=== PATIENT | female | born 1985 | race Caucasian/White ===

== ENCOUNTER → 2017-10-25 16:39 | Outpatient (CLI) | payer OTHER, SELFPAY ==
[2017-10-25 19:36] LABS: Chlamydia Trachomatis by PCR Negative (Negative); Neisserai gonorrhoeae by PCR Negative (Negative); Probe Check PASS; Sample Adequacy Control PASS; Specimen Processing Control PASS
--- NOTE | 2017-10-31 12:15 | VUL_PTH ---
PATIENT: HAYDER LIMA LOC: [facility] U#:[id number] AGE/SX: 39/F ROOM: RE10/25/[address]: Dr. Norbert Meraz MD : 1985 BED: DIS: SPEC #: [id number] RECD: 11/02/17 12:39 STATUS: HARDIK EDGARDO #: [id number] HAILEE: 10/31/17 12:[address]: Norbert Meraz DEPT: SURGICAL PATHOLOGY RECD BY: Xavi Argueta Tissues: Vulva, NOS Procedures: Surgery Specimen Level IV HEADER OPERATION: Skin tag excision PRE-OP DIAGNOSIS: Skin tags TISSUE SUBMITTED: Vulvar skin tags MICROSCOPIC DIAGNOSIS Vulvar skin tags: Squamous papilloma x2. SJ:efren 11/02/17 MICROSCOPIC DESCRIPTION Slides are reviewed. GROSS DESCRIPTION Received in fixative is one container labeled with the patient's name and designated vulvar skin tags. The specimen consists of two pieces of juares-white skin measuring 1 x 0.5 x 0.3 cm and 0.7 x 0.5 x 0.3 cm. Both pieces are dissected. The entire specimen is submitted in one cassette. / SJ:efren 11/01/17 TC:1 CPT: 74208
== END ==
PROVIDERS: Visit Provider Obstetrics & Gynecology
DX: Z12.4 Encounter for screening for malignant neoplasm of cervix (principal); Z11.3 Encounter for screening for infections with a predominantly sexual mode of transmission
CPT/HCPCS: 87491; 87591; 87624; 88175; 88305; G0145

== ENCOUNTER → 2017-10-31 12:15 | Outpatient (CLI) | payer OTHER, SELFPAY ==
--- NOTE | 2017-10-31 12:15 | DT_ITS ---
This patient was seen during an EMR downtime October 29, 2017 - November 05, 2017. This patient may have a combination of paper and electronic documentation or all paper documentation. All documentation is viewable within the e-chart portion of [facility] for each patient visit.
== END ==
PROVIDERS: Family Provider Family Medicine Geriatric Medicine; PCP Family Medicine Geriatric Medicine; Visit Provider Obstetrics & Gynecology
DX: N90.89 Other specified noninflammatory disorders of vulva and perineum (principal)

== ENCOUNTER → 2018-10-03 16:41 | Outpatient (CLI) | payer SELFPAY ==
[2018-05-13 08:52] VITALS: BMI 36.8
== END ==
PROVIDERS: Family Provider Family Medicine Geriatric Medicine; PCP Family Medicine Geriatric Medicine; Visit Provider Family Medicine Geriatric Medicine
DX: N39.0 Urinary tract infection, site not specified (principal)
CPT/HCPCS: 87086; 87088

== ENCOUNTER → 2018-10-04 11:50 | Outpatient (CLI) | payer OTHER, SELFPAY ==
[2018-05-13 08:52] VITALS: BMI 36.8
--- NOTE | 2018-10-04 11:55 | US_ITS ---
STUDY: ABDOMINAL ULTRASOUND - RIGHT UPPER QUADRANT REASON FOR VISIT: Female, 32 years old. Right upper quadrant pain. TECHNIQUE: Ultrasound evaluation of the right upper quadrant was performed with real-time and static monahan-scale imaging. TECHNICAL QUALITY: Adequate. Examination limited by bowel gas. COMPARISON: None. FINDINGS: Liver: The liver measures 15.2 cm. There is normal echogenicity of the liver. The bile ducts are within normal limits. There is hepatic color flow. The direction of portal flow is hepatopetal. There is no demonstrated mass lesion. Gallbladder: Normal distended gallbladder. The gallbladder wall measures 3 mm. There is a negative sonographic Javier's sign. There is no pericholecystic fluid. There are no gallstones. Common Bile Duct (C.B.D.): The common bile duct measures 4 mm. Pancreas: Normal size of the visualized head, neck, and body of the pancreas. The tail the pancreas is not well seen. There is normal echogenicity of the pancreas. There is no demonstrated pancreatic mass or cyst. Right Kidney: Normal size of the right kidney. The right kidney measures 11.1 x 5.4 x 4.3 cm. Normal renal cortex. The right cortex measures 1.6 cm. There is no demonstrated renal mass or cyst. There is no right hydronephrosis. US/Abdomen Limited IMPRESSION: Normal right upper quadrant ultrasound examination. Electronically Signed: Mohsen Young MD at 12:42 EDT , Service support ,
== END ==
PROVIDERS: Family Provider Family Medicine Geriatric Medicine; PCP Family Medicine Geriatric Medicine; Referring Provider Family Medicine Geriatric Medicine; Visit Provider Family Medicine Geriatric Medicine
DX: R10.9 Unspecified abdominal pain (principal)
CPT/HCPCS: 76705

== ENCOUNTER → 2019-08-19 09:56 | Outpatient (CLI) | payer OTHER, SELFPAY ==
[2018-05-13 08:52] VITALS: BMI 36.8
[2019-08-19 16:26] LABS: Absolute Lymphocyte Count 2.55 X10^3/uL (0.83-4.51); Absolute Neutrophil Count 4.6 X10^3/uL (2.0-7.7); Basophil# 0.05 X10^3/uL; Basophil% 0.6 % (0-1); Eosinophil# 0.11 X10^3/uL; Eosinophils% 1.4 % (0-5); Hematocrit 38.6 % (37-47); Hemoglobin 12.4 g/dL (12.0-15.0); Lymphocyte # 2.55 X10^3/ul (4.0); Lymphocyte % 32.3 % (19-41); Mean Corp Hgb Conc 32.1 g/dL (32-36); Mean Corpuscular Hgb 28.1 pg (27.0-32.0); Mean Corpuscular Volume 87.5 fL (81-99); Mean Platelet Vol. 10.6 fl (6.2-12.0); Monocyte# 0.52 X10^3/uL; Monocyte% 6.6 % (0-10); NRBC Flagged by Analyzer 0 % (0-5); Neutrophil # 4.56 X10^3/uL (2.7-7.7); Neutrophil % 57.7 % (47-70); Platelet Count 210 K/mm3 (150-450); RBC Distribution Width CV 13.4 % (11.6-14.6); RBC Distribution Width SD 43.4 fl (35.1-43.9); Red Blood Count 4.41 M/mm3 (4.2-5.4); White Blood Count 7.9 K/mm3 (4.4-11.0)
[2019-08-19 16:42] LABS: Anion Gap 5 (5-15); BUN 13 mg/dL (7-18); BUN/Creat Ratio 18.3 RATIO (10-20); Chloride 114 mmol/L (98-107); Creatinine, Serum 0.71 mg/dL (0.55-1.02); EST Glomerular Filtration Rate 100 mL/min (>60); Est Glom Filt Rate - Afr Amer 121 mL/min (>60); Glucose 105 mg/dL (74-106); Potassium 4.1 mmol/L (3.5-5.1); Sodium Level 142 mmol/L (136-145)
== END ==
PROVIDERS: PCP Family Medicine Geriatric Medicine; Visit Provider Family Medicine Geriatric Medicine
DX: R51 Headache (principal)
CPT/HCPCS: 36415; 80048; 85025

== ENCOUNTER → 2019-08-29 11:26 | Outpatient (CLI) | payer OTHER, SELFPAY ==
[2018-05-13 08:52] VITALS: BMI 36.8
[2019-08-29 12:48] LABS: Anion Gap 4 (5-15); BUN 23 mg/dL (7-18); Calcium,Total 8.6 mg/dL (8.5-10.1); Chloride 108 mmol/L (98-107); Creatinine, Serum 0.79 mg/dL (0.55-1.02); EST Glomerular Filtration Rate 88 mL/min (>60); Est Glom Filt Rate - Afr Amer 106 mL/min (>60); Glucose 95 mg/dL (74-106); Potassium 4.7 mmol/L (3.5-5.1); Sodium Level 137 mmol/L (136-145)
== END ==
PROVIDERS: PCP Family Medicine Geriatric Medicine; Visit Provider Family Medicine Geriatric Medicine
DX: E83.51 Hypocalcemia (principal)
CPT/HCPCS: 36415; 80048

== ENCOUNTER → 2019-09-12 | Outpatient (CLI) | payer OTHER, SELFPAY ==
[2018-05-13 08:52] VITALS: BMI 36.8
--- NOTE | 2019-09-11 | EMB_PTH ---
PATIENT: HAYDER LIMA LOC: [facility] U#:[id number] AGE/SX: 33/F ROOM: RE09/12/[address]: Dr. Norbert Meraz MD : 1985 BED: DIS: 09/12/2019 SPEC #: [id number] RECD: 09/12/19 10:47 STATUS: HARDIK EDGARDO #: [id number] HAILEE: 09/11/19 00:[address]: Norbert Meraz DEPT: SURGICAL PATHOLOGY RECD BY: Mahesh Torres Tissues: Endometrium, NOS Procedures: Surgery Specimen Level IV HEADER OPERATION: Endometrial biopsy PRE-OP DIAGNOSIS: Irregular bleeding, menorrhagia TISSUE SUBMITTED: Endometrial biopsy MICROSCOPIC DIAGNOSIS Endometrial biopsy: Early secretory endometrium. ALBERT:efren 09/15/19 MICROSCOPIC DESCRIPTION Slides are reviewed. GROSS DESCRIPTION Received in fixative is one container labeled with the patient's name and designated endometrial biopsy. The specimen consists of multiple fragments of pink, hemorrhagic soft tissue that in aggregate measure 3 x 2.5 x 0.2 cm. The entire specimen is submitted in one cassette. / SJ:rg 09/12/19 TC:4 CPT: 33167
[2019-09-12 12:39] LABS: Thyroid Stim Hormone (TSH) 1.43 uIU/mL (0.358-3.74)
== END | disposition home or self-care (01) ==
PROVIDERS: Referring Provider Obstetrics & Gynecology; Visit Provider Obstetrics & Gynecology
DX: N92.6 Irregular menstruation, unspecified (principal); N92.0 Excessive and frequent menstruation with regular cycle
CPT/HCPCS: 36415; 84146; 84443; 88305

== ENCOUNTER 2019-11-20 05:46 | Day surgery (SDC) | payer OTHER, SELFPAY ==
[2018-05-13 08:52] VITALS: BMI 36.8
[2019-11-15 07:59] LABS: Hematocrit 42.8 % (37-47); Mean Corp Hgb Conc 32.7 g/dL (32-36); Mean Corpuscular Hgb 28.6 pg (27.0-32.0); Mean Corpuscular Volume 87.5 fL (81-99); Mean Platelet Vol. 10.2 fl (6.2-12.0); Platelet Count 267 K/mm3 (150-450); RBC Distribution Width CV 13.6 % (11.6-14.6); RBC Distribution Width SD 43.5 fl (35.1-43.9); Red Blood Count 4.89 M/mm3 (4.2-5.4); White Blood Count 8.5 K/mm3 (4.4-11.0)
--- NOTE | 2019-11-19 22:09 | HP.PCM_ITS ---
History and Physical Date of Admission: 11/20/19 Surgical History and Physical Annelise Bourgeois, a 34 year old female 2 0 0 0 2, presents for HTA, Hysteroscopy and D and C on November 20, 2019 at 7:30. -- Menorrhagia -- Bleeding Heavy with clots which began . Annelise claims it started gradually and has been present for several years. Additional comments are: EMBx was benign; TSH and prolactin OK; u/s without submucous fibroids today. MEDICATIONS HISTORY: Current medications prescribed by our practice are: 1. Ditropan XL 10 mg tablet,extended release, One pill by mouth once a day 2. Prometrium 200 mg capsule, One pill by mouth once a day at hs for 10 days monthly ALLERGIES: NKA Infections - chix pox in childhood, shingles inb adulthood, pos. chlamydia 07/31 Illnesses - IBS Accidents - None Hospitalizations - see surgery Review of Systems: GENERAL - Denies fever, or chills SKIN - Denies skin changes EYES - Denies visual changes EARS - Denies difficulty hearing NOSE - Denies nasal congestion or bleeding MOUTH - Denies sore throat or difficulty swallowing NECK - Denies pain or swelling RESPIRATORY - Denies shortness of breath or wheezing CARDIOVASCULAR - Denies palpitations or chest pain GASTROINTESTINAL - Denies nausea, vomiting, diarrhea, constipation GENITOURINARY - Denies dysuria, frequency of urination, incontinence of urine MUSCULOSKELETAL - Denies joint or muscle pain NEUROLOGICAL - Denies localized numbness or weakness PSYCHIATRIC - Denies depression or anxiety ENDOCRINE - Denies heat or cold intolerance, weight loss or gain HEMATO-IMMUNOLOGIC - Denies excesive bleeding with cuts SOCIAL HISTORY: Alcohol Use - RARELY Smoking - 4 cigarettes daily (ATQ) Diet - no particular diet, caffeine > 2 drinks per day and needs improvement Lifestyle - moderate stress lifestyle and single Exercise - active work Seat Belt Use - always Employer - 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 Hours Worked - 40 hours per week Children Name(s) - Norbert Lombardo Control - Essure Tubal FAMILY HISTORY: Family history of DM II, Family History, Heart Disease and Hypertension. Mother: heart murmur and Hypertension. Father: DM II, Heart Disease and Hypertension. Maternal Grandmother: septic from gut infection. Maternal Grandfather: and Lung cancer. Paternal Grandmother: and Heart Disease. Paternal Grandfather: Colon Cancer. MENSTRUAL HISTORY: LMP Known?- DefiniteAmount/Duration - 4-5 days, Regularity - Irregular, Frequency - every 2 wks days, LMP - 11/03/19, Age Onset Menarche - 9 PAST PREGNANCIES: Total Pregnancies - 2; Full Term Pregnancies - 2; Premature - 0; Abortions, Induced - 0; Abortions, Spontaneous - 0; Ectopics - 0; Multiple Births - 0; Living Children - 2 SURGICAL HISTORY: 1. 10/30/2013 [facility] ; Norbert Meraz M.D. 2. wisdom teeth 3. Tonsils, 1999 PHYSICAL EXAM BP- 138/82 Sitting, Right arm, large cuff Weight- 217.0 lbs Height- 62 inch BMI:39.77 CONSTITUTIONAL - NAD, well nourished, and well developed SKIN - No rash, lesions, or ulcers HEENT - Normocephalic, PERRLA, EOMI NECK - No nodes, no nuchal rigidity and thyroid normal size and texture LYMPH NODES - Palpation of lymph nodes in neck and groins within normal limits LUNGS - CTA x2 without wheezes, crackles or rales CARDIAC - Regular rate and rhythm without rubs, murmurs, or gallops BREAST - No dominant masses, no tenderness, no axillary adenopathy, no nipple discharge, no skin changes ABDOMEN - Without hepatosplenomegaly, distention, masses, rebound, or guarding; normal bowel sounds; no hernias EXTREMITIES - No edema or calf tenderness NEUROLOGICAL - Cranial nerves II-XII grossly intact PSYCHIATRIC - A and O to time, place, person, mood and affect External Genital Vagina - non-tender without lesions Urethra/Urethral Meatus - non-tender Bladder - non-tender Vagina - vaginal smith are pink and moist without loss of rugae and no evidence of atropy and blood in vagina Cervix - without cervical motion tenderness and has normal size and features without evident lesions and high in the vagina Uterus - multiparous size 6 cm & wt 75-125 g Adnexa - clear without masses or tenderness ASSESSMENT/PLAN: 1. Premenopausal Menorrhagia EMBx OK. TSH and prolactin normal. Pelvic u/s shows that HTA will likely be of benefit as no submucous fibroids or polyps. Plan HTA, D and C and H/S. Discussed RBAs and all questions answered. Procedure Criteria Procedure Type: Elective COVID Risk Discussion: The surgeon/proceduralist and patient have discussed in detail the risk of exposure to and/or potential harm posed by the COVID-19 virus with having a jose lala/procedure at this time versus the risk of delaying the surgery/procedure. It is not possible to know either the risk of delaying the surgery or procedure or chance of getting an infection with perfect accuracy, but a joint decision was made between the patient and the surgeon/proceduralist to proceed at this time with the scheduled surgery/procedure as indicated on the consent form.
[2019-11-20] VITALS (14 sets, daily range): BP systolic 107–143; BP diastolic 67–102; PULSE 56–94; RESP 12–18; TEMP 36.1–37.3; O2SAT 95–100; BMI 39.5
[2019-11-20 06:31] LABS: Internal QC Validated? YES +Cl - CLEAR BKGD; Pregnancy, Urine Negative Negative
[2019-11-20] MEDS: Lactated Ringers 1,000 ML 100 ML IV (06:41)
--- NOTE | 2019-11-20 07:27 | PCM.OPRPT ---
Report of Operation Date of Procedure: 11/20/19 Pre-Operative Diagnosis: Menorrhagia Post-Operative Diagnosis: Menorrhagia Surgery/Procedure Performed:: Diagnostic Hysteroscopy, Dilation and Curettage, Hydrothermal Ablation Description of Surgical Findings:: 8 cm endometrial cavity without polyps or fibroids. Cervix which prolapsed to about 3 to 4 cm from the introitus which would make vaginal hysterectomy likely possible and difficult difficult but robotic assisted vaginal hysterectomy feasible and preferred if hysterectomy were necessary. Type of Anesthesia:: General - LMA Anesthesiologist: Jose Guadalupe Sheppard Specimen's removed: Endometrial curettings Estimated Blood Loss (mL): Minimal Fluids Replaced: Crystalloid Description of Procedure: Surgeon: Norbert Meraz MD, FACOG Indication: This is a 34 year old patient who has been having problems with extremely heavy menses. Conservative measures have not been helpful. Endometrial sampling was benign and pelvic ultrasound showed that ablation may be helpful. Pt has been counseled regarding the risks, benefits and alternatives of this procedure and all questions answered. She understands that only about half of patients will have amenorrhea after this procedure. Procedure: Patient taken to the operating room where after induction of general anesthesia the patient was prepped and draped in the usual sterile fashion. Bladder was drained of urine with a catheter. Anterior cervix grasped and cervix was dilated to about 17 Nepali size. Hysteroscopic hydrothermal ablation (HTA) unit was place in the cervix and the above findings were noted. HTA unit was removed and the uterus was gently curetted removing all contents. An HTA ablation cycle was then carried out at about 90 degrees Centigrade for 10 minutes with virtually no fluid loss during the procedure. After an appropriate cool down the HTA unit was removed with minimal bleeding noted. The patient tolerated the procedure well and was taken to the recovery room in satisfactory condition. Sponge, instruments and needle counts were all correct. There were no apparent complications of the surgery. Cefotan 2 gms IV was given prior to the procedure. Grafts/Implants Used: None - Complications None - Admit VTE Documentation VTE Present on Admission: Yes VTE Mechan Device Prophylaxis: SCD's
--- NOTE | 2019-11-20 07:30 | EMB_PTH ---
PATIENT: HAYDER LIMA LOC: [facility] U#:[id number] AGE/SX: 34/F ROOM: RE11/20/[address]: Dr. Norbert Meraz MD : 1985 BED: DIS: 11/20/2019 SPEC #: [id number] RECD: 11/20/19 08:59 STATUS: HARDIK EDGARDO #: [id number] HAILEE: 11/20/19 07:[address]: Norbert Meraz DEPT: SURGICAL PATHOLOGY RECD BY: Marcin Del Valle ENTERED: 11/20/19 09:17 SP TYPE: ENDOM BX/C LUIS CARLOS DR: No Primary Care Phys Tissues: Endometrium, NOS Procedures: Surgery Specimen Level IV HEADER OPERATION: Hysteroscopy, D & C hydroablation PRE-OP DIAGNOSIS: Menorrhagia TISSUE SUBMITTED: Endometrial curettings MICROSCOPIC DIAGNOSIS Endometrial curettings: Secretory endometrium. A few fragments of myometrium. A few fragments of benign ectocervical epithelium. SJ:efren 11/21/19 COMMENT Please make reference to previous specimen ([id number]) endometrial biopsy with diagnosis of early secretory endometrium. MICROSCOPIC DESCRIPTION Slides are reviewed. GROSS DESCRIPTION Received in fixative is one container labeled with the patient's name and designated endometrial curettings. The specimen consists of multiple fragments of hemorrhagic soft tissue that in aggregate measure 5 x 3 x 0.6 cm. The entire specimen is submitted in four cassettes. / ALBERT:efren 11/20/19 TC:4 CPT: 03713
--- NOTE | 2019-11-20 07:30 | DCINST_ITS ---
Discharge Diet: No Restrictions Discharge Activity: Return to Normal Activity, May Shower, May Take a Tub Bath May resume sexual activity in: 4 weeks Call your doctor if you observe: Fever of 101 or Higher, Inability to urinate, Inability to have a bowel movement Allergies/Adverse Reactions: Allergies No Known Allergies Allergy (Verified 11/14/19 08:01) Medications to take at Discharge Oxycodone [Oxyir] 5 mg PO Q6H PRN PRN 7 Days #5 tablet 11/20/19 The following prescriptions were given: Oxycodone [Oxyir] 5 mg PO Q6H PRN PRN 7 Days #5 tablet PRN Reason: Pain Score 6-10/10 Transmission Status: Sent to [facility] Primary Care Physician: Care Physician,No Primary [Primary Care Provider] - Test Results: Test results from this visit will be discussed in further detail at your follow- up appointment, if applicable. Please Follow Up With: Norbert Meraz MD When: 3-4 weeks
[2019-11-20] MEDS: Oxytocin 10 UNITS/ML Vial (08:06)
[2019-11-20] MEDS: oxyCODONE 5 MG Tablet PO (10:18)
[2019-11-20] MEDS: Ketorolac 30 MG/ML Syringe IV (11:56)
== END 2019-11-20 12:43 | disposition home or self-care (01) ==
LOC: SDC 05:47 → AC 05:47
PROVIDERS: Anesthesiology; Referring Provider Obstetrics & Gynecology; Visit Provider Obstetrics & Gynecology
PROC: 0U5B8ZZ Destruction of Endometrium, Via Natural or Artificial Opening Endoscopic (ICD-10-PCS; CPT 58563; principal; 2019-11-20 07:15)
DX: N92.4 Excessive bleeding in the premenopausal period (principal); F17.210 Nicotine dependence, cigarettes, uncomplicated; Z11.59 Encounter for screening for other viral diseases
CPT/HCPCS: 00952; 58563; 36415; 81025; 84443; 85027; 86850; 86900; 86901; 87635; 88305; G2023; J7120; J2405; U0003

== ENCOUNTER → 2020-03-05 17:30 | Outpatient (CLI) | payer OTHER, SELFPAY ==
[2019-11-20 06:30] VITALS: BMI 39.5
== END ==
PROVIDERS: PCP Family Medicine Geriatric Medicine; Referring Provider Family Medicine Geriatric Medicine; Visit Provider Family Medicine Geriatric Medicine
DX: R68.83 Chills (without fever) (principal)
CPT/HCPCS: 87633; 87635; C9803; U0003

== ENCOUNTER → 2020-05-12 07:06 | Outpatient (CLI) | payer OTHER, SELFPAY ==
[2020-04-16 08:23] VITALS: BMI 39.5
== END ==
PROVIDERS: PCP Family Medicine Geriatric Medicine; Referring Provider Chiropractor; Visit Provider Chiropractor
DX: M99.03 Segmental and somatic dysfunction of lumbar region (principal); M99.05 Segmental and somatic dysfunction of pelvic region
CPT/HCPCS: 72110

== ENCOUNTER 2020-06-17 08:00 | Outpatient (RCR) | payer OTHER, SELFPAY | END 2020-06-17 23:59 | LOC: IMMUN 08:00 | PROVIDERS: PCP Family Medicine Geriatric Medicine; Visit Provider Family Medicine | DX: Z23 Encounter for immunization (principal) | CPT/HCPCS: 0011A; 0012A; 91301 ==

== ENCOUNTER → 2020-08-13 12:07 | Outpatient (CLI) | payer OTHER, SELFPAY ==
[2020-08-13 12:47] LABS: Absolute Lymphocyte Count 2.35 X10^3/uL (0.83-4.51); Absolute Neutrophil Count 6.1 X10^3/uL (2.0-7.7); Basophil# 0.06 X10^3/uL; Basophil% 0.6 % (0-1); Eosinophil# 0.12 X10^3/uL; Eosinophils% 1.3 % (0-5); Hematocrit 44.9 % (37-47); Hemoglobin 14.4 g/dL (12.0-15.0); Lymphocyte # 2.35 X10^3/ul (4.0); Lymphocyte % 25.2 % (19-41); Mean Corp Hgb Conc 32.1 g/dL (32-36); Mean Corpuscular Volume 87.2 fL (81-99); Mean Platelet Vol. 10.7 fl (6.2-12.0); Monocyte# 0.61 X10^3/uL; Monocyte% 6.5 % (0-10); NRBC Flagged by Analyzer 0 % (0-5); Neutrophil # 6.06 X10^3/uL (2.7-7.7); Platelet Count 261 K/mm3 (150-450); RBC Distribution Width CV 13.5 % (11.6-14.6); RBC Distribution Width SD 42.7 fl (35.1-43.9); Red Blood Count 5.15 M/mm3 (4.2-5.4); White Blood Count 9.3 K/mm3 (4.4-11.0)
[2020-08-13 13:17] LABS: Anion Gap 3 (5-15); BUN 13 mg/dL (7-18); BUN/Creat Ratio 15.2 RATIO (10-20); Chloride 106 mmol/L (98-107); Creatinine, Serum 0.85 mg/dL (0.55-1.02); EST Glomerular Filtration Rate 80 mL/min (>60); Est Glom Filt Rate - Afr Amer 97 mL/min (>60); Glucose 99 mg/dL (74-106); Potassium 4.2 mmol/L (3.5-5.1); Sodium Level 136 mmol/L (136-145); Thyroid Stim Hormone (TSH) 2.01 uIU/mL (0.358-3.74)
== END ==
PROVIDERS: PCP Family Medicine Geriatric Medicine; Visit Provider Family Medicine Geriatric Medicine
DX: R53.83 Other fatigue (principal)
CPT/HCPCS: 36415; 80048; 84443; 85025

== ENCOUNTER → 2020-10-20 | Outpatient (CLI) | payer OTHER, SELFPAY | END | disposition home or self-care (01) | LOC: POLAB3 10:38 → LABSPEC 10:41 | PROVIDERS: PCP Family Medicine Geriatric Medicine; Visit Provider Family Medicine Geriatric Medicine | DX: N39.0 Urinary tract infection, site not specified (principal) | CPT/HCPCS: 87086; 87088 ==

== ENCOUNTER → 2021-01-24 09:01 | Outpatient (CLI) | payer OTHER, SELFPAY ==
[2021-01-24 14:14] LABS: Probe Check PASS; Specimen Processing Control PASS
== END ==
LOC: PSN 09:02
PROVIDERS: PCP Family Medicine Geriatric Medicine; Referring Provider Family Medicine Geriatric Medicine; Visit Provider Family Medicine Geriatric Medicine
DX: U07.1 COVID-19 (principal)
CPT/HCPCS: 87633; 87635; C9803; U0005; U0003

== ENCOUNTER 2021-01-26 14:22 | Outpatient (CLI) | payer OTHER, SELFPAY ==
[2021-01-26] MEDS: 0.9% Saline Lock 10 ML Syringe IV (14:43)
[2021-01-26 14:45] VITALS: BP 141/88; PULSE 103; RESP 16; TEMP 37.1; O2SAT 98; BMI 40.9
[2021-01-26 16:00] VITALS: BP 124/81; PULSE 98; RESP 16; TEMP 37.2; O2SAT 99
[2021-01-26 17:00] VITALS: BP 139/85; PULSE 101; RESP 16; TEMP 36.8; O2SAT 100
== END 2021-01-26 17:02 | disposition home or self-care (01) ==
LOC: ICUOUT 14:23 → MS2 14:24
PROVIDERS: PCP Family Medicine Geriatric Medicine; Referring Provider Nurse Practitioner Acute Care; Visit Provider Nurse Practitioner Acute Care
DX: Z23 Encounter for immunization (principal); U07.1 COVID-19
CPT/HCPCS: J7050; M0243; A4216; Q0244

== ENCOUNTER → 2021-04-25 12:16 | Outpatient (CLI) | payer OTHER, SELFPAY ==
--- NOTE | 2021-04-25 | LES_PTH ---
PATIENT: HAYDER LIMA LOC: [facility] U#:[id number] AGE/SX: 39/F ROOM: RE04/25/[address]: Dr. Salomón Perkins MD : 1985 BED: DIS: SPEC #: [id number] RECD: 04/25/21 13:07 STATUS: HARDIK EDGARDO #: [id number] HAILEE: 04/25/21 00:[address]: Salomón Perkins Chi DEPT: SURGICAL PATHOLOGY RECD BY: Mahesh Torres Tissues: Skin of forearm, NOS Procedures: Special Stain Group I Surgery Specimen Level IV GMS Stain (control) HEADER OPERATION: Biopsy right forearm PRE-OP DIAGNOSIS: L98.9 TISSUE SUBMITTED: Right forearm biopsy MICROSCOPIC DIAGNOSIS Skin, right forearm, biopsy: Lichenoid and interface dermatitis. See comment. ALBERT:efren 05/03/2021 COMMENT The specimen is sent to [facility] for expert opinion, reviewed by Dr. Rojelio Reza and the above diagnosis is rendered. Dr. Cesar Reza also commented that ?differential diagnosis includes lichen planus-like keratosis, lichen planus lichenoid drug reaction and less likely, collagen vascular disorders. Clinicopathological correlation should be consider.? The complete report is viewable in the patient's EMR. Special stain for fungi is negative for organisms; matched control is appropriate. Case has been reviewed in consultation with Dr. Ramírez who concurs with the above diagnosis. IDC:AM MICROSCOPIC DESCRIPTION Slides are reviewed. GROSS DESCRIPTION Received in fixative is one container labeled with the patient's name and designated right forearm. The specimen consists of a shave biopsy of juares-white skin measuring 0.7 x 0.5 x 0.1 cm. The specimen is inked, bisected and submitted entirely in one cassette. / ALBERT:efren 04/25/21 TC:3 CPT: 63359, 64642
== END ==
PROVIDERS: PCP Family Medicine Geriatric Medicine; Visit Provider Family Medicine Geriatric Medicine
DX: L30.8 Other specified dermatitis (principal)
CPT/HCPCS: 88305; 88312

== ENCOUNTER → 2021-05-24 12:18 | Outpatient (CLI) | payer OTHER, SELFPAY | PROVIDERS: PCP Family Medicine Geriatric Medicine; Visit Provider Family Medicine Geriatric Medicine | DX: R06.89 Other abnormalities of breathing (principal) | CPT/HCPCS: 87635; 87804; 87807; C9803; U0005; U0003 ==

== ENCOUNTER 2021-08-25 16:00 | Outpatient (CLI) | payer OTHER, SELFPAY ==
[2021-09-15 11:00] LABS: HPV Reflexed? NOT INDICATED
== END 2021-08-25 23:59 | disposition home or self-care (01) ==
PROVIDERS: PCP Family Medicine Geriatric Medicine; Visit Provider Obstetrics & Gynecology
DX: Z12.4 Encounter for screening for malignant neoplasm of cervix (principal)
CPT/HCPCS: 88175; G0145

== ENCOUNTER → 2022-05-24 | Outpatient (CLI) | payer OTHER, SELFPAY | END | disposition home or self-care (01) | LOC: PSN 12:09 | PROVIDERS: PCP Family Medicine Geriatric Medicine; Visit Provider Family Medicine Geriatric Medicine | DX: R68.83 Chills (without fever) (principal) | CPT/HCPCS: 87635; 87804; 87807; C9803; U0003; U0005 ==

== ENCOUNTER → 2022-07-12 | Outpatient (CLI) | payer OTHER, SELFPAY | END | disposition home or self-care (01) | LOC: PSN 07:31 | PROVIDERS: PCP Family Medicine Geriatric Medicine; Visit Provider Family Medicine Geriatric Medicine | DX: R68.83 Chills (without fever) (principal) | CPT/HCPCS: 87635; 87804; 87807; C9803; U0003; U0005 ==

== ENCOUNTER → 2022-09-28 | Outpatient (CLI) | payer OTHER, SELFPAY ==
--- NOTE | 2022-09-28 17:50 | RAD_ITS ---
INDICATION: HEEL PAIN EXAMINATION/TECHNIQUE: X-RAY - RIGHT XR Foot Min 3 Views 3 VIEWS COMPARISON: None FINDINGS: SOFT TISSUES: No soft tissue swelling or gas. No radiopaque foreign body. BONES/JOINTS: No acute fracture or subluxation. Inferior calcaneal enthesophyte. Lisfranc and Chopart planes appear normal. Joint spaces are maintained. No sclerotic or destructive changes observed. RAD/Foot min 3 Views IMPRESSION: Heel spur. No acute abnormal finding. Electronically Signed: Tian Eaton MD at 18:21 EDT ,
== END | disposition home or self-care (01) ==
LOC: RAD 17:44
PROVIDERS: PCP Family Medicine Geriatric Medicine; Referring Provider Family Medicine Geriatric Medicine; Visit Provider Family Medicine Geriatric Medicine
DX: M79.671 Pain in right foot (principal)
CPT/HCPCS: 73630

== ENCOUNTER → 2024-09-29 | Outpatient (CLI) | payer OTHER, SELFPAY ==
--- NOTE | 2024-09-29 13:38 | BI_ITS ---
EXAM: DIAG MAMM W/CAD, BILAT N/A CLINICAL HISTORY: F, Age 38 y/o , BLOODY NIPPLE DISCHARGE left nipple discharge. Discharge is spontaneous. She has been having it for several months. It is clear, sometimes yellowish and sometimes bloody. Evaluate TECHNIQUE: Bilateral Diagnostic digital breast tomosynthesis with 2D and 3D images. Computer aided detection. COMPARISON: None. FINDINGS: TISSUE DENSITY: The breast tissue is composed of scattered area of fibroglandular density. Bilateral Breast Mammographic Findings: There are no suspicious masses, suspicious clustered microcalcifications, architectural distortion or secondary signs of malignancy identified in either breast. There is no mammographic abnormality to correlate to her left nipple discharge. Further workup with ultrasound will be performed for further evaluation. BI/DIAG MAMM W/CAD, BILAT IMPRESSION: OVERALL FINAL ASSESSMENT: BIRADS 0 Incomplete: Need additional imaging evaluati on and/or prior mammograms for comparison.. RECOMMENDATION: Ultrasound. A letter with findings and recommendations will be mailed to the patient. Reading Location: [id number]
--- NOTE | 2024-09-29 13:38 | US_ITS ---
PROCEDURE: BREAST LIMITED UNILATERAL 09/29/2024 REASON FOR EXAM: BLOODY NIPPLE DISCHARGE left nipple discharge which is sometimes clear, sometimes bloody and sometimes yellowish. It is spontaneous. She has been having it for several months. Inconclusive mammogram. TECHNIQUE: Targeted left breast ultrasound. COMPARISON: Mammogram dated 09/29/2024 FINDINGS: Left breast ultrasound was targeted to the retroareolar region. There are minimally ectatic ducts identified in the retroareolar region of the left breast. No obvious filling defect is seen in any of the ducts on the images submitted for review. The type of discharge that she is describing is somewhat worrisome for malignancy. A galactogram or MRI examination should be performed if the patient's symptoms continue or worsen. Otherwise, the patient should return in 1 year for routine yearly screening mammography. US/Breast Limited Unilateral IMPRESSION: Impression: There are minimally ectatic ducts identified in the retroareolar re gion of the left breast. No obvious filling defect is seen in any of the ducts on the images submitted for review. The typ e of discharge that she is describing is somewhat worrisome for malignancy. A galactogram or MRI examination should be performed if the patient's symptoms continue or worsen. Otherwise, the patient should return in 1 year for routine yearly screening susu mography Birads: BI-RADS 2: BENIGN. RECOMMEND ANNUAL MAMMOGRAPHIC SCREENING. Reading Location: [id number]
== END | disposition home or self-care (01) ==
LOC: OPBI 13:36
PROVIDERS: PCP Family Medicine Geriatric Medicine; Referring Provider Obstetrics & Gynecology; Visit Provider Obstetrics & Gynecology
DX: N64.52 Nipple discharge (principal)
CPT/HCPCS: 76642; 77062; 77066; G0279

== ENCOUNTER → 2025-03-12 | Outpatient (CLI) | payer OTHER, SELFPAY ==
--- NOTE | 2025-03-12 17:03 | US_ITS ---
PROCEDURE: EXT NON VASC LIMITED/SOFT TISS 03/12/2025 REASON FOR EXAM: RIGHT POSTERIOR SCALP MASS TECHNIQUE: Procedure Code: [id number] Modality: US Procedure: EXT NON VASC LIMITED/SOFT TISS COMPARISON: None FINDINGS: Multiple lymph node like lesions identified measuring up to 1.4 cm in the right posterior scalp, 0.5 cm in the anterior right scalp, and 0.4 cm in the right anterior scalp. US/Ext Non Vasc Limited/Soft Tiss IMPRESSION: Probable lymph nodes as above. Reading Location: [id number]
--- OUTSIDE RECORDS SUMMARY | 2025-03-12 17:08 | XMS RPT_ITS | CCD ---
Author Organization [facility] CliniSyva Care Team Providers Care Edger Machine Helper Name Role Phone Dr. Salomón Perkins Chi Primary Care Provider Dr. Salomón Perkins Chi Referring Provider Dr. Kat Das Attending Provider [phone] Unavailable Primary Care Provider NEGAR Crawford Primary Care Unavailable REFERRED, SELF Referring Unavailable JASSON PEREA Attending Unavailable FABY HERNANDEZ Attending Unavailable FABY HERNANDEZ Referring Unavailable Unavailable Primary Care Provider UnavailBENITA Drew Attending Unavailable BENITA WILSON Attending Unavailable Health, Employee Attending Provider Gregorio GONZALEZ, Dr. Salomón Trevino Primary Care Provider [phone] Gregorio GONZALEZ, Dr. Salomón Trevino Referring Provider [phone] Dosange GALLEGOS, Dr. Stephens Attending Provider [phone] Benita Wilson MD Attending Provider Dr. Benita Wilson MD Referring Provider Gregorio GONZALEZ, Dr. Salomón Trevino Primary Care Provider Gregorio GONZALEZ, Dr. Salomón Trevino Referring Provider Dossi DC, Dr. Stephens Attending Provider Nika GONZALEZ, Dr. Delgadillo Attending Provider Gregorio GONZALEZ, Dr. Salomón Trevino Primary Care Physician Nika GONZALEZ, Dr. Delgadillo Attending Physician Gregorio GONZALEZ, Dr. Salomón Trevino Referring Provider Dosange DC, Dr. Stephens Attending Physician Valentina GONZALEZ, Dr. Fountain Attending Physician [phone] Gregorio, Salomón Chi Referring Unavailable Dossi, Kat Attending Unavailable Gregorio, Salomón Chi Primary Care Unavailable Gregorio, Salomón Chi Referring Unavailable Dossi, Kat Attending Unavailable Gregorio, Salomón Chi Primary Care Unavailable Gregorio, Salomón Chi Primary Care Unavailable Gregorio, Salomón Chi Referring Unavailable Dossi, Kat Attending Unavailable Gregorio, Salomón Chi Primary Care Unavailable Gregorio, Salomón Chi Referring Unavailable Dossi, Kat Attending Unavailable Assessment, Health Risk Referring Unavaila ble Assessment, Health Risk Attending Unavaila ble Gregorio, Salomón Chi Primary Care Unavailable Gregorio, Salomón Chi Primary Care Unavailable Siska, Александр Referring Unavailable Siska, Александр Attending Unavailable Kate, Benita Referring Unavailable Kate, Benita Attending Unavailable Gregorio, Salomón Chi Primary Care Unavailable Gregorio, Salomón Chi Primary Care Unavailable Gregorio, Salomón Chi Referring Unavailable Dossi, Kat Attending Unavailable Gregorio, Salomón Chi Primary Care Unavailable Gregorio, Salomón Chi Referring Unavailable Dossi, Kat Attending Unavailable Gregorio, Salomón Chi Primary Care Unavailable Gregorio, Salomón Chi Referring Unavailable Dossi, Kat Attending Unavailable Gregorio, Salomón Chi Primary Care Unavailable Siska, Александр Attending Unavailable Gregorio, Salomón Chi Referring Unavailable Gregorio, Salomón Chi Referring Unavailable Dossi, Kat Attending Unavailable Gregorio, Salomón Chi Primary Care Unavailable Gregorio, Salomón Chi Referring Unavailable Dossi, Kat Attending Unavailable Gregorio, Salomón Chi Primary Care Unavailable Gregorio, Salomón Chi Referring Unavailable Dossi, Kat Attending Unavailable Gregorio, Salomón Chi Primary Care Unavailable Allergies Allergy Classification Reported Allergen(s) Allergy Type Date of Onset Reaction(s) Facility (2 sources) Citalopram Drug Allergy 02-28-2024 [facility] Medications Current Medications Medication Drug Class(es) Dates Sig (Normalized) Sig (Original) clobetasol propionate 0.5 mg/ml topical cream (2 sources) Corticosteroid Start: 07-24-2023 clobetasol (Temovate) 0.05 % cream APPLY TO AFFECTED AREA EXTERNALLY TWICE A DAY 07/24/2023 Active famotidine 40 mg oral tablet (2 sources) Histamine-2 Receptor Antagonist Start: 12-09-2023 take 1 tablet by mouth twice daily famotidine (Pepcid) 40 MG tablet Take 40 mg by mouth 2 times daily. 12/09/2023 Active FLUoxetine 60 mg oral tablet (14 sources) Serotonin Reuptake Inhibitor Start: 09-25-2025 take 1 tablet by mouth once daily Fluoxetine 60 mg tablet Active 60 mg PO daily February 19, 2025 12:00am Complies with drug therapy Start: 08-09-2013 End: 04-11-2018 take 1 capsule by mouth at bedtime Fluoxetine 20 MG capsule Discontinued 20 mg PO AT BEDTIME August 09, 2013 12:00am April 11, 2018 3:48pm FLUoxetine (PROz ac) 40 MG capsule Take 60 mg by mouth daily. Active hydrOXYzine hydrochloride 50 mg oral tablet (2 sources) Antihistamine Start: 07-24-2023 take 1 tablet by mouth every six hours hydrOXYzine HCl (Atarax) 50 MG tablet Take 50 mg by mouth in the morning and 50 mg at noon and 50 mg in the evening and 50 mg before bedtime. 07/24/2023 Active pantoprazole 40 mg delayed release oral tablet (12 sources) Proton Pump Inhibitor Start: 01-26-2021 take 1 tablet by mouth once daily Pantoprazole 40 mg tablet,delayed release (DR/EC) Active 40 mg PO DAILY January 26, 2021 12:00am Complies with drug therapy Completed/Discontinued Medications Medication Drug Class(es) Dates Sig (Normalized) Sig (Original) 12 hr buPROPion hydrochloride 150 mg extended release oral tablet (12 sources) Aminoketone Start: 01-26-2021 End: 02-19-2025 take 1 tablet by mouth twice daily Bupropion Hcl 150 mg tablet sustained-release 12 hr Discontinued 150 mg PO TWICE A DAY January 26, 2021 12:00am February 19, 2025 5:30pm take 1 tablet by mouth once ivett y buPROPion XL (Wellbutrin XL) 150 MG 24 hr tablet Take 150 mg by mouth daily. Do not crush, chew, or split. Active omeprazole 40 mg delayed release oral capsule (10 sources) Proton Pump Inhibitor Start: 08-09-2013 End: 04-11-2018 take 1 capsule by mouth once daily as needed Omeprazole 40 MG capsule Discontinued 40 mg PO DAILY as needed for Indigestion August 09, 2013 12:00am April 11, 2018 3:49pm oxyCODONE hydrochloride 5 mg oral tablet (10 sources) Opioid Agonist Start: 11-20-2019 End: 11-27-2019 take 1 tablet by mouth every six hours as needed for pain Oxycodone 5 MG tablet Discontinued 5 mg PO EVERY 6 HOURS NEEDED as needed for Pain Score 6-10/10 5 7 0 November 20, 2019 November 26, 2019 12:00am November 27, 2019 12:02am Other acute postprocedural pain raNITIdine 75 mg oral tablet (10 sources) Histamine-2 Receptor Antagonist Start: 08-09-2013 End: 04-11-2018 take 1 tablet by mouth once daily as needed Ranitidine Hcl 75 MG tablet Discontinued 75 mg PO DAILY NEEDED as needed for Indigestion August 09, 2013 12:00am April 11, 2018 3:49pm Problems Active Problems Problem Classification Problem Date Documented Date Episodic/Chronic Other acquired deformities (20 sources) Spondylolisthesis L5/S1 level; Translations: [Spondylolisthesis, lumbosacral region] 05-13-2020 Episodic Other acquired deformities (11 sources) Spondylolisthesis, lumbosacral region; Translations: [Spondylolisthesis] Onset: 5 Episodic Other bone disease and musculoskeletal deformities (20 sources) Segmental and somatic dysfunction; Translations: [Segmental and somatic dysfunction of cervical region] 11-19-2019 Episodic Other bone disease and musculoskeletal deformities (12 sources) Segmental and somatic dysfunction of cervical region; Translations: [Nonallopathic lesions, cervical region] Onset: 5 Episodic Other bone disease and musculoskeletal deformities (12 sources) Segmental and somatic dysfunction of lumbar region; Translations: [Nonallopathic lesions, lumbar region] Onset: 5 Episodic Other bone disease and musculoskeletal deformities (12 sources) Segmental and somatic dysfunction of pelvic region; Translations: [Nonallopathic lesions, pelvic region] Onset: 5 Episodic Other bone disease and musculoskeletal deformities (12 sources) Segmental and somatic dysfunction of thoracic region; Translations: [Nonallopathic lesions, thoracic region] Onset: 5 Episodic Other complications of (4 sources) Anemia during - baby not yet delivered; Translations: [Anemia complicating , unspecified trimester] 11-19-2019 Chronic Other complications of (6 sources) Anemia of ; Translations: [Anemia complicating , unspecified trimester] 08-08-2013 Chronic Other skin disorders (2 sources) Localized swelling, mass and lump, head; Translations: [Localized swelling, mass and lump, head] Onset: 5 Episodic Spondylosis; intervertebral disc disorders; other back problems (20 sources) Lumbosacral radiculopathy; Translations: [Radiculopathy, lumbosacral region] Onset: 5 Episodic Viral infection (10 sources) Disease caused by 2019-nCoV; Translations: [COVID-19] 01-24-2021 Episodic Past or Other Problems Problem Classification Problem Date Documented Da te Episodic/Chronic Nonmalignant breast conditions (4 sources) Bloody nipple discharge; Translations: [Nipple discharge] Onset: 09-11-2024 09-11-2024 Episodic Other screening for suspected conditions (not mental disorders or infectious disease) (5 sources) Cancer cervix screening status; Translations: [Encounter for screening for malignant neoplasm of cervix] Onset: 02-28-2024 02-27-2024 Episodic Results Test Name Value Interpretation Reference Range Facility Plastic Surgery Visit Report on 02-27-2025 Plastic Surgery Visit Report [facility] Plastic Reconstructive Surgery [address], [address] [place] [address] OFFICE VISIT Date of Service: 02/27/25 MR#: [id number] Acct: [id number] Name: ANNELISE BOURGEOIS Rep #: [id number] : 1985 Provider: Dr. Александр Montgomery MD Age/Sex: 39/F Location: [facility] Status: Signed Intake Vital Signs 3 07/31/24 17:27 02/27/25 15:58 Height 5 ft 2 in 5 ft 2 in Weight: 231 lb BMI 42.2 Intake Visit Reasons: CYST ON SCALP Chief Complaint: cyst on scalp Is patient in pain?: No Allergies No Known Allergies Allergy (Verified 02/27/25 15:23) Medications 3 ???Medication ???Instructions ???Recorded ???Confirmed ???Type pantoprazole 40 mg tablet,delayed 40 mg PO DAILY 01/26/21 02/27/25 History release fluoxetine 60 mg tablet 60 mg PO QDAY 02/19/25 02/27/25 Hi story [facility] Surgical History History of wisdom tooth extraction History of tonsillectomy and adenoidectomy Family History Other Heart disease Hypertension Social History Smoking Status: Current every day smoker tobacco type: cigarettes alcohol intake: current alcohol intake frequency: holidays/special occasions only substance use type: does not use what type of physical activity do you participate in: none HPI CYST ON SCALP Details: The patient is a 39-year-old female presenting with a mass behind her ear, 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 The mass has been present for 15 years and has recently become more noticeable, although it does not drain. The patient reports associated headaches, although the mass itself is not painful. The patient has a history of gastroesophageal reflux disease (GERD) for which she takes pantoprazole 40 mg daily. She also takes fluoxetine 60 mg daily. The patient reports experiencing migraines, although the relationship between the mass and her headaches is uncertain. She has no history of craniofacial trauma or congenital issues, and her past medical history includes tonsillectomy and adenoidectomy. Discussed with her today that extensively that there is no guarantee (in fact it is rather unlikely) that the Pilar cyst is contributing to her headaches and the headaches could even get worse with surgery. She understands this and is accepting of the risk. ROS: - Neurological: Reports headaches, denies any craniofacial trauma or congenital issues. - Gastrointestinal: Reports gastroesophageal reflux disease, managed with medication. - General: Denies smoking, diabetes, bleeding, or clotting disorders. Attestation: Documentation on this patient encounter was supported using ambient scribe technology/ voice AI technology. The patient consented to recording for the purpose of documenting the encounter. Provider reviewed content of the generated note prior to signature. ROS General General: Yes good health; No fatigue, fever(s) or weight loss HENMT HENMT: No rhinitis, sore throat/mouth sore, nasal congestion, contacts or glaucoma Endo Endocrine: No thyroid disease, polydipsia, heat intolerance, cold intolerance, hepatitis or excessive urine Skin Skin: No Bleeding, bruising, changing moles or suspicious lesion Musc Musculoskeletal: No joint pain, joint stiffness, muscle weakness, back pain, osteoarthritis or Muscle aches/ myalgia Neuro Neurological: No headache(s), No lightheadedness and No numbness Cardio Cardiovascular: No chest pain, pacemaker, fatigue or shortness of breat with exertion Psych Psychiatric: No depression, claustrophobia or anxiety Resp Respiratory: No spitting up, shortness of breath, sleep apnea, asthma, emphysema, TB, Cough or Smoker Gastro Gastrointestinal: No diarrhea, constipation, blood in stool, nausea, vomiting or abdominal bloating Junito Hematologic: No anemia, No bleeding and No abnormal bleeding Genitourinary: No urinary frequency, blood in urine or incontinence Exam Details - Head and Neck: Mobile 2 x 2 cm mass behind the ear, 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 Coding Level of Care Code Off vis,new,level 3 Diagnoses Mass of scalp R22.0 Assessment and Plan (No Qualifiers) Assessment and Plan (1) Mass of scalp: Status: Acute Plan: - Imaging: Ultrasound of the right posterior scalp ordered to evaluate the mass. 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 The mass has been present for 15 years and is associated with headaches, although the direct relationship is uncertain. The mass is mobile and measures 2 x 2 cm, with no drainage reported. The patient is otherwise healthy, with no history of craniofa (more content not included)... 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 Required: No Accompanied by: Self Is patient in pain?: Yes (low back, sciatic and hips) Pain scale (1-10): 8 Allergies No Known Allergies Allergy (Verified 02/19/25 17:29) Medications ???Medication ???Instructions ???Recorded ???Confirmed ???Type pantoprazole 40 mg tablet,delayed 40 mg PO DAILY 01/26/21 02/19/25 History release fluoxetine 60 mg tablet 60 mg PO QDAY 02/19/25 02/19/25 Hi story PFSH Surgical History History of wisdom tooth extraction History of tonsillectomy and adenoidectomy Family History Other Heart disease Hypertension Social History Smoking Status: Current every day smoker tobacco type: cigarettes alcohol intake: current alcohol intake frequency: holidays/special occasions only substance use type: does not use what type of physical activity do you participate in: none HPI Back pain Chief Complaint: Neck/mid, LBP Visit Number: 7 Details: Annelise is a 39 y/o female here to follow up on neck, low and mid back pain. Pt. continues to complain of increased low back pain. She states it is tight, painful and has sciatica pain into her bilateral glutes that alternates from the left to right. She rates her low back pain 8/10. She states her pain increases with bending and prolonged standing and her legs feel like they are weak and going to give out. She c/o neck tension that extends into her upper back equal across. Currently experiencing a migraine. 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 She states walking longer distances and sitting on hard surfaces aggravates her low back pain. She treats pain with Salonpas and Ibuprofen at home as needed. She denies new injury, numbness or tingling. She reports chiropractic adjustments are helpful in relieving her pain and discomfort but it gradually returns. Location: neck/back Duration: frequent Aggravating or associated factors: lifting, bending,walking Relieving factors: chiro Pain Quality: aching, dull, sharp and radiating Exam Musc General: Yes normal posture, normal gait, joint tenderness and decreased range of motion; No muscle weakness Cervical Spine: Yes loss of normal cervical lordosis, Yes cervical muscular tenderness bilateral diffuse , Yes cervical spasm right greater than left lower trapezius and paracervical muscles and Yes misalignment misalignment: C5, C6 and C7 Thoracic/Lumber: Yes thoracic and lumbar spine normal to inspection, Yes paraspinal tenderness bilaterally in the upper thoracic and in the mid thoracic and on the right greater than left (lumbopelvic), Yes thoraco-lumbar spasm bilaterally (trap) in the upper thoracic and on the right greater than left (QL, piriformis) and Yes misalignment T3, T4, T5, T6, L2, L3, L4 and RIL Sacroiliac joints: on the right tender to palpation Office Procedures Procedures - Chiropractic Procedures Manipulation: Cervical C6, Lumbar L2, Thoracic T4 and Pelvis RIL Manipulation: 3-4 regions Electronic Stimulation: No Traction, Mechanical: Yes Hot and/or cold packs: No Patient Response: positive Assessment and Plan Assessment and Plan (1) Segmental and somatic dysfunction of pelvic region: Status: Acute (2) Segmental and somatic dysfunction of cervical region: Status: Acute (3) Segmental and somatic dysfunction of lumbar region: Status: Acute (4) Segmental and somatic dysfunction of thoracic region: Status: Acute Plan Patient was treated without incident. Continue care as needed. Plan Details Goals Barriers: Goals Decrease pain Decrease inflammation Improve ROM Improve workability Follow Up: PRN Coding Level of Care Code No Charge Diagnoses Segmental and somatic dysfunction of pelvic region M99.05 Segmental and somatic dysfunction of cervical region M99.01 Segmental and somatic dysfunction of lumbar region M99.03 Segmental and somatic dysfunction of thoracic region M99.02 CPT Codes Procedures - Manipulation: 3-4 regions ([id number]) Procedures - Traction, Mechanical: Yes ([id number]) 02/23/25 0854 Date Kat Ibarra Signature: Date (more content not included)... Normal [facility] Chiropractic Reporton 2024 Chiropractic Report [facility] [address] [place] [id number] OFFICE VISIT Date of Service: 12/25/24 MR#: [id number] Acct: [id number] Name: ANNELISE BOURGEOIS Rep #: [id number] : 1985 Provider: ROSY Humphreys Age/Sex: 39/F Location: [facility] Status: Signed Intake Vital Signs 07/31/24 17:27 Height 5 ft 2 in Intake Visit Reasons: Back pain Chief Complaint: neck, upper and low back pain Is patient in pain?: Yes (low back ) Pain scale (1-10): 5 Allergies No Known Allergies Allergy (Verified 12/25/24 17:37) Medications ???Medication ???Instructions ???Recorded ???Confirmed ???Type bupropion HCl 150 mg tablet,12 hr 150 mg PO BID 01/26/21 12/25/24 H istory sustained-release pantoprazole 40 mg tablet,delayed 40 mg PO DAILY 01/26/21 12/25/24 History release PFSH Surgical History History of wisdom tooth extraction History of tonsillectomy and adenoidectomy Family History Other Heart disease Hypertension Social History Smoking Status: Current every day smoker tobacco type: cigarettes alcohol intake: current alcohol intake frequency: holidays/special occasions only substance use type: does not use what type of physical activity do you participate in: none HPI Back pain Chief Complaint: Neck/mid, LBP Visit Number: 6 Details: Annelise is a 39 y/o female here to follow up on neck, low and mid back pain. Pt. continues to complain of increased low back pain. She states it is tight, painful and has sciatica pain into her bilateral glutes that alternates from the left to right. She rates her low back pain 5/10. She states her pain increases with bending and prolonged standing and her legs feel like they are weak and going to give out. 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 She states walking longer distances and sitting on hard surfaces aggravates her low back pain. She treats pain with Salonpas and Ibuprofen at home as needed. She denies new injury, numbness or tingling. She reports chiropractic adjustments are helpful in relieving her pain and discomfort but it gradually returns. Location: neck/back Duration: frequent Aggravating or associated factors: lifting, bending,walking Relieving factors: chiro Pain Quality: aching, dull, sharp and radiating Exam Musc General: Yes normal posture, normal gait, joint tenderness and decreased range of motion; No muscle weakness Cervical Spine: Yes loss of normal cervical lordosis, Yes cervical muscular tenderness bilateral diffuse , Yes cervical spasm right greater than left lower trapezius and paracervical muscles and Yes misalignment misalignment: C5, C6 and C7 Thoracic/Lumber: Yes thoracic and lumbar spine normal to inspection, Yes paraspinal tenderness bilaterally in the upper thoracic and in the mid thoracic and on the right greater than left (lumbopelvic), Yes thoraco-lumbar spasm bilaterally (trap) in the upper thoracic and on the right greater than left (QL, piriformis) and Yes misalignment T3, T4, T5, T6, L2, L3, L4 and RIL Sacroiliac joints: on the right tender to palpation Office Procedures Procedures - Chiropractic Procedures Manipulation: Cervical C6, Lumbar L2, Thoracic T4 and Pelvis RIL Manipulation: 3-4 regions Traction, Mechanical: Yes Patient Response: positive Assessment and Plan Assessment and Plan (1) Segmental and somatic dysfunction of pelvic region: Status: Acute (2) Segmental and somatic dysfunction of cervical region: Status: Acute (3) Segmental and somatic dysfunction of lumbar region: Status: Acute (4) Segmental and somatic dysfunction of thoracic region: Status: Acute (5) Lumbosacral radiculopathy: Status: Acute Orders: Orders Chiropractic Treatments 12/25/24 M43.17 - Spondylolisthesis, lumbosacral region, M54.17 - Radiculopathy, lumbosacral region, M99.01 - Segmental and somatic dysfunction of cervical region, M99.02 - Segmental and somatic dysfunction of thoracic region, M99.03 - Segmental and somatic dysfunction of lumbar region, M99.05 - Segmental and somatic dysfunction of pelvic region Plan Patient was treated without incident. Continue care as needed. Consider updated xrays at [facility]. Plan Details Goals Barriers: Goals Decrease pain Decrease inflammation Improve ROM Improve workability Follow Up: PRN Coding Level of Care Code No Charge Diagnoses Segmental and somatic dysfunction of pelvic region M99.05 Segmental and somatic dysfunction of cervical region M99.01 Segmental and somatic dysfunction of lumbar region M99.03 Segme (more content not included)... Normal [facility] Chiropractic Reporton 2024 Chiropractic Report [facility] [address] [place] [address] OFFICE VISIT Date of Service: 11/27/24 MR#: [id number] Acct: [id number] Name: ANNELISE BOURGEOIS Rep #: [id number] : 1985 Provider: ROSY Humphreys Age/Sex: 39/F Location: [facility] Status: Signed Intake Vital Signs 07/31/24 17:27 Height 5 ft 2 in Intake Visit Reasons: Back pain Chief Complaint: neck, upper and low back pain Is patient in pain?: Yes (low back ) Pain scale (1-10): 5 Allergies No Known Allergies Allergy (Verified 11/27/24 17:55) Medications ???Medication ???Instructions ???Recorded ???Confirmed ???Type bupropion HCl 150 mg tablet,12 hr 150 mg PO BID 01/26/21 11/27/24 H istory sustained-release pantoprazole 40 mg tablet,delayed 40 mg PO DAILY 01/26/21 11/27/24 History release PFSH Surgical History History of wisdom tooth extraction History of tonsillectomy and adenoidectomy Family History Other Heart disease Hypertension Social History Smoking Status: Current every day smoker tobacco type: cigarettes alcohol intake: current alcohol intake frequency: holidays/special occasions only substance use type: does not use what type of physical activity do you participate in: none HPI Back pain Chief Complaint: Neck/mid, LBP Visit Number: 5 Details: Annelise is a 39 y/o female here to follow up on neck, low and mid back pain. She complains of increased low back pain. She states it is and tight, painful and catches at times. She rates her pain 7/10 and is equal bilaterally. She states her pain increases with bending and prolonged standing and her legs feel like they are weak and going to give out. She also c/o stiffness in her neck as well. 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 She states walking longer distances and sitting on hard surfaces aggravates her low back pain. She treats pain with Salonpas and Ibuprofen at home as needed. She denies new injury, numbness or tingling. She reports chiropractic adjustments are helpful in relieving her pain and discomfort but it gradually returns. Location: neck/back Duration: frequent Aggravating or associated factors: lifting, bending,walking Relieving factors: chiro Pain Quality: aching, dull, sharp and radiating Exam Musc General: Yes normal posture, normal gait, joint tenderness and decreased range of motion; No muscle weakness Cervical Spine: Yes loss of normal cervical lordosis, Yes cervical muscular tenderness bilateral diffuse , Yes cervical spasm right greater than left lower trapezius and paracervical muscles and Yes misalignment misalignment: C5, C6 and C7 Thoracic/Lumber: Yes thoracic and lumbar spine normal to inspection, Yes paraspinal tenderness bilaterally in the upper thoracic and in the mid thoracic and on the right greater than left (lumbopelvic), Yes thoraco-lumbar spasm bilaterally (trap) in the upper thoracic and on the right greater than left (QL, piriformis) and Yes misalignment T3, T4, T5, T6, L2, L3, L4 and RIL Sacroiliac joints: on the right tender to palpation Office Procedures Procedures - Chiropractic Procedures Manipulation: Cervical C6, Lumbar L2, Thoracic T4 and Pelvis RIL Manipulation: 3-4 regions Patient Response: positive Assessment and Plan Assessment and Plan (1) Segmental and somatic dysfunction of pelvic region: Status: Acute (2) Segmental and somatic dysfunction of cervical region: Status: Acute (3) Segmental and somatic dysfunction of lumbar region: Status: Acute (4) Segmental and somatic dysfunction of thoracic region: Status: Acute (5) Lumbosacral radiculopathy: Status: Acute Orders: Orders Chiropractic Treatments 11/27/24 M43.17 - Spondylolisthesis, lumbosacral region, M54.17 - Radiculopathy, lumbosacral region, M99.01 - Segmental and somatic dysfunction of cervical region, M99.02 - Segmental and somatic dysfunction of thoracic region, M99.03 - Segmental and somatic dysfunction of lumbar region, M99.05 - Segmental and somatic dysfunction of pelvic region Plan Patient was treated without incident. Continue care, she is overworking which has exacerbated her discomfort. Plan Details Goals Barriers: Goals Decrease pain Decrease inflammation Improve ROM Improve workability Follow Up: PRN Coding Level of Care Code No Charge Diagnoses Segmental and somatic dysfunction of pelvic region M99.05 Segmental and somatic dysfunction of cervical region M99.01 Segmental and somatic dysfunction of lumbar region M99.03 Segmental and somatic dysfunction of thoracic region M99.02 Lumbosacral radiculopathy M54.17 (more content not included)... Normal [facility] Chiropractic Reporton 2024 Chiropractic Report [facility] [place] [facility] [address] [place] [address] OFFICE VISIT Date of Service: 10/23/24 MR#: [id number] Acct: [id number] Name: ANNELISE BOURGEOIS Rep #: [id number] : 1985 Provider: ROSY Humphreys Age/Sex: 38/F Location: [facility] Status: Signed Intake Vital Signs 07/31/24 17:27 Height 5 ft 2 in Intake Visit Reasons: Back pain Chief Complaint: neck, upper and low back pain Is patient in pain?: Yes (Neck, LBP) Pain scale (1-10): 7 Allergies No Known Allergies Allergy (Verified 10/23/24 17:28) Medications ???Medication ???Instructions ???Recorded ???Confirmed ???Type bupropion HCl 150 mg tablet,12 hr 150 mg PO BID 01/26/21 10/23/24 H istory sustained-release pantoprazole 40 mg tablet,delayed 40 mg PO DAILY 01/26/21 10/23/24 History release PFSH Surgical History History of wisdom tooth extraction History of tonsillectomy and adenoidectomy Family History Other Heart disease Hypertension Social History (Reviewed 10/23/24 @ 17:28 by Abena Mar Smoking Status: Current every day smoker tobacco type: cigarettes alcohol intake: current alcohol intake frequency: holidays/special occasions only substance use type: does not use what type of physical activity do you participate in: none HPI Back pain Chief Complaint: Neck/mid, LBP Visit Number: 4 Details: Annelise is a 38 y/o female here to follow up on neck, low and mid back pain. She complains of increased neck and low back pain. She complains of neck pain and stiffness that is equal bilaterally. She also complains of low back pain and stiffness that is equal bilaterally. She is also experiencing sciatic pain into her bilateral legs to knee. She rates her pain 7/10. She states her pain increases with bending and prolonged standing. 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 She treats pain with Salonpas and Ibuprofen at home as needed. She denies new injury, numbness or tingling. She reports chiropractic adjustments are helpful in relieving her pain and discomfort but it gradually returns. Location: neck/back Duration: frequent Aggravating or associated factors: lifting, bending,walking Relieving factors: chiro Pain Quality: aching, dull, sharp and radiating Exam Musc General: Yes normal posture, normal gait, joint tenderness and decreased range of motion; No muscle weakness Cervical Spine: Yes loss of normal cervical lordosis, Yes cervical muscular tenderness bilateral diffuse , Yes cervical spasm right greater than left lower trapezius and paracervical muscles and Yes misalignment misalignment: C5, C6 and C7 Thoracic/Lumber: Yes thoracic and lumbar spine normal to inspection, Yes paraspinal tenderness bilaterally in the upper thoracic and in the mid thoracic and on the right greater than left (lumbopelvic), Yes thoraco-lumbar spasm bilaterally (trap) in the upper thoracic and on the right greater than left (QL, piriformis) and Yes misalignment T3, T4, T5, T6, L2, L3, L4 and RIL Sacroiliac joints: on the right tender to palpation Office Procedures Procedures - Chiropractic Procedures Manipulation: Cervical C6, Lumbar L2, Thoracic T4 and Pelvis RIL Manipulation: 3-4 regions Traction, Mechanical: Yes Patient Response: positive Assessment and Plan Assessment and Plan (1) Segmental and somatic dysfunction of pelvic region: Status: Acute (2) Segmental and somatic dysfunction of cervical region: Status: Acute (3) Segmental and somatic dysfunction of lumbar region: Status: Acute (4) Segmental and somatic dysfunction of thoracic region: Status: Acute (5) Spondylolisthesis at L5-S1 level: Status: Chronic Orders: Orders Chiropractic Treatments 10/23/24 M43.17 - Spondylolisthesis, lumbosacral region, M54.9 - Dorsalgia, unspecified, M99.01 - Segmental and somatic dysfunction of cervical region, M99.02 - Segmental and somatic dysfunction of thoracic region, M99.03 - Segmental and somatic dysfunction of lumbar region, M99.05 - Segmental and somatic dysfunction of pelvic region Plan Patient was treated without incident. Continue care as needed. Plan Details Goals Barriers: Goals Decrease pain Decrease inflammation Improve ROM Improve workability Follow Up: PRN Coding Level of Care Code No Charge Diagnoses Segmental and somatic dysfunction of pelvic region M99.05 Segmental and somatic dysfunction of cervical region M99.01 Segmental and somatic dysfunction of lumbar region M99.03 Segmental and somatic dysfunction of thoracic region M99.02 Spondylolisthesis (more content not included)... Normal [facility] Breast Limited Unilateralon 09-29-2024 Breast Limited Unilateral [facility] Imaging Services [address] [place] [address] Breast Limited Unilateral MR#: [id number] Acct: [id number] Name: ANNELISE BOURGEOIS Rep #: [id number] : 1985 F 38 From: Christine Donis PCP: Dr. Salomón Perkins MD Status: REG CLI Study: Breast Limited Unilateral Date of Exam: Exam# [id number] Ordering Dr: Benita Wilson MD PROCEDURE: BREAST LIMITED UNILATERAL 09/29/2024 REASON FOR EXAM: BLOODY NIPPLE DISCHARGE left nipple discharge which is sometimes clear, sometimes bloody and sometimes yellowish. It is spontaneous. She has been having it for several months. Inconclusive mammogram. TECHNIQUE: Targeted left breast ultrasound. COMPARISON: Mammogram dated 09/29/2024 FINDINGS: Left breast ultrasound was targeted to the retroareolar region. There are minimally ectatic ducts identified in the retroareolar region of the left breast. No obvious filling defect is seen in any of the ducts on the images submitted for review. The type of discharge that she is describing is somewhat worrisome for malignancy. A galactogram or MRI examination should be performed if the patient's symptoms continue or worsen. Otherwise, the patient should return in 1 year for routine yearly screening mammography. US/Breast Limited Unilateral IMPRESSION: Impression: There are minimally ectatic ducts identified in the retroareolar region of the left breast. No obvious filling defect is seen in any of the ducts on the images submitted for review. The type of discharge that she is describing is somewhat worrisome for malignancy. A galactogram or MRI examination should be performed if the patient's symptoms continue or worsen. Otherwise, the patient should return in 1 year for routine yearly screening mammography Birads: BI-RADS 2: BENIGN. RECOMMEND ANNUAL MAMMOGRAPHIC SCREENING. Reading Location: [id number] CC: Dr. Benita Wilson MD; Dr. Salomón Perkins MD Land Developer: Signed Normal [facility] Breast imaging reportOrdered By: Christine Hampton on 09-29-2024 Study report [facility] Imaging Services [address] [place] [address] [id number] DIAG MAMM W/CAD, BILAT MR#: [id number] Acct: [id number] Name: ANNELISE BOURGEOIS Rep #: [id number] : 1985 F 38 From: Antonio Hampton DO PCP: Dr. Salomón Perkins MD Status: GREGORIO ROMAN Study:DIAG MAMM W/CAD, BILAT Date of Exam: 09/29/24 Exam# [id number] Ordering Dr: Emilia Wilson MD EXAM: DIAG MAMM W/CAD, BILAT N/A CLINICAL HISTORY: F, Age 38 y/o , BLOODY NIPPLE DISCHARGE left nipple discharge. Discharge is spontaneous. She has been having it for several months. It is clear, sometimes yellowish and sometimes bloody. Evaluate TECHNIQUE: Bilateral Diagnostic digital breast tomosynthesis with 2D and 3D images. Computer aided detection. COMPARISON: None. FINDINGS: TISSUE DENSITY: The breast tissue is composed of scattered area of fibroglandular density. Bilateral Breast Mammographic Findings: There are no suspicious masses, suspicious clustered microcalcifications, architectural distortion or secondary signs of malignancy identified in either breast. There is no mammographic abnormality to correlate to her left nipple discharge. Further workup with ultrasound will be performed for further evaluation. BI/DIAG MAMM W/CAD, BILAT IMPRESSION: OVERALL FINAL ASSESSMENT: BIRADS 0 Incomplete: Need additional imaging evaluation and/or prior mammograms for comparison.. RECOMMENDATION: Ultrasound. A letter with findings and recommendations will be mailed to the patient. Reading Location: [id number] CC: Dr. Benita Wilson MD; Dr. Salomón Perkins MD ~ Land Developer: Turner [facility] DIAG MAMM W/CAD, BILATon DIAG MAMM W/CAD, BILAT [facility] Imaging Services [address] [place] [address] DIAG MAMM W/CAD, BILAT MR#: [id number] Acct: [id number] Name: ANNELISE BOURGEOIS Rep #: [id number] : 1985 F 38 From: Christine Donis PCP: Dr. Salomón Perkins MD Status: [facility] Study: DIAG MAMM W/CAD, BILAT Date of Exam: 09/29/24 Exam# [id number] Ordering Dr: Benita Wilson MD EXAM: DIAG MAMM W/CAD, BILAT N/A CLINICAL HISTORY: F, Age 38 y/o , BLOODY NIPPLE DISCHARGE left nipple discharge. Discharge is spontaneous. She has been having it for several months. It is clear, sometimes yellowish and sometimes bloody. Evaluate TECHNIQUE: Bilateral Diagnostic digital breast tomosynthesis with 2D and 3D images. Computer aided detection. COMPARISON: None. FINDINGS: TISSUE DENSITY: The breast tissue is composed of scattered area of fibroglandular density. Bilateral Breast Mammographic Findings: There are no suspicious masses, suspicious clustered microcalcifications, architectural distortion or secondary signs of malignancy identified in either breast. There is no mammographic abnormality to correlate to her left nipple discharge. Further workup with ultrasound will be performed for further evaluation. BI/DIAG MAMM W/CAD, BILAT IMPRESSION: OVERALL FINAL ASSESSMENT: BIRADS 0 Incomplete: Need additional imaging evaluation and/or prior mammograms for comparison.. RECOMMENDATION: Ultrasound. A letter with findings and recommendations will be mailed to the patient. Reading Location: [id number] CC: Dr. Benita Wilson MD; Dr. Salomón Perkins MD Land Developer: Signed Normal [facility] Chiropractic Reporton 2024 Chiropractic Report [facility] Chiropractic [facility] [id number] OFFICE VISIT Date of Service: 09/25/24 MR#: [id number] Acct: [id number] Name: ANNELISE BOURGEOIS Rep #: [id number] : 1985 Provider: ROSY Humphreys Age/Sex: 38/F Location: [facility] Status: Signed Intake Vital Signs 07/31/24 17:27 Height 5 ft 2 in Intake Visit Reasons: Back pain Chief Complaint: neck, upper and low back pain Allergies No Known Allergies Allergy (Verified 09/25/24 17:27) Medications ???Medication ???Instructions ???Recorded ???Confirmed ???Type bupropion HCl 150 mg tablet,12 hr 150 mg PO BID 01/26/21 08/07/24 H istory sustained-release pantoprazole 40 mg tablet,delayed 40 mg PO DAILY 01/26/21 08/07/24 History release PFSH Surgical History History of wisdom tooth extraction History of tonsillectomy and adenoidectomy Family History Other Heart disease Hypertension Social History Smoking Status: Current every day smoker tobacco type: cigarettes alcohol intake: current alcohol intake frequency: holidays/special occasions only substance use type: does not use what type of physical activity do you participate in: none HPI Back pain Chief Complaint: Neck/mid, LBP Visit Number: 3 Details: Annelise is a 38 y/o female here to follow up on neck, low and mid back pain. Pt. states c/o neck stiffness that is equal bilaterally. She denies recent BRUNO's. She advises she has been low back and sciatica pain often. She states it alternates from right to left from day to day. She states her pain increases with bending and prolonged standing. 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 She treats pain with Salonpas and Ibuprofen at home as needed. She denies new injury, numbness or tingling. She reports chiropractic adjustments are helpful in relieving her pain and discomfort but it gradually returns. Location: neck/back Duration: frequent Aggravating or associated factors: lifting, bending,walking Relieving factors: chiro Pain Quality: aching, dull, sharp and radiating Exam Musc General: Yes normal posture, normal gait, joint tenderness and decreased range of motion; No muscle weakness Cervical Spine: Yes loss of normal cervical lordosis, Yes cervical muscular tenderness bilateral lower , Yes cervical spasm right greater than left lower trapezius and paracervical muscles and Yes misalignment misalignment: C5, C6 and C7 Thoracic/Lumber: Yes thoracic and lumbar spine normal to inspection, Yes paraspinal tenderness bilaterally in the upper thoracic and in the mid thoracic and on the right greater than left (lumbopelvic), Yes thoraco-lumbar spasm bilaterally (trap) in the upper thoracic and on the right greater than left (QL, piriformis) and Yes misalignment T3, T4, T5, T6, L2, L3, L4 and RIL Sacroiliac joints: on the right tender to palpation Office Procedures Procedures - Chiropractic Procedures Manipulation: Cervical C6, Lumbar L2, Thoracic T4 and Pelvis RIL Manipulation: 3-4 regions Patient Response: positive Assessment and Plan Assessment and Plan (1) Back pain: Qualifiers: Back pain location: low back pain Chronicity: acute Back pain laterality: bilateral Sciatica presence: without sciatica Qualified Code(s): M54.50 - Low back pain, unspecified (2) Segmental and somatic dysfunction of pelvic region: Status: Acute (3) Segmental and somatic dysfunction of cervical region: Status: Acute (4) Segmental and somatic dysfunction of lumbar region: Status: Acute (5) Segmental and somatic dysfunction of thoracic region: Status: Acute (6) Spondylolisthesis at L5-S1 level: Status: Chronic Orders: Orders Chiropractic Treatments 09/25/24 M43.17 - Spondylolisthesis, lumbosacral region, M54.17 - Radiculopathy, lumbosacral region, M99.01 - Segmental and somatic dysfunction of cervical region, M99.02 - Segmental and somatic dysfunction of thoracic region, M99.03 - Segmental and somatic dysfunction of lumbar region, M99.05 - Segmental and somatic dysfunction of pelvic region Plan Patient was treated without incident. Continue care as needed. Plan Details Goals Barriers: Goals Decrease pain Decrease inflammation Improve ROM Improve workability Follow Up: PRN Coding Level of Care Code No Charge Diagnoses Acute bilateral low back pain without sciatica M54.50 Back pain location: low back pain Chronicity: acute Back pain laterality: bilateral Sciatica presence: without sciatica Segmental and somatic dysfunction of pelv (more content not included)... Normal [facility] Office Visiton 09-11-2024 Follow-up visit [id number] Annelise Bourgeois 1985 F Date Provider Department Center 09/11/2024 [id number] Family History Family Status - Relation Status Age at Father Mother Alive Level of Service:03416 RI OFFICE/OUTPATIENT ESTABLISHED LOW MDM 20 MIN Reason for Visit and Comments: Breast Pain [663369] - Nipple discharge (Brown ) bloody Normal [facility] Progress Noteon 09-11-2024 Progress Note HPI: Here for 3-4 month hx of bloody nipple discharge from left side. No pain or lumps. No skin changes. REVIEW OF SYSTEMS: Gen: denies weight loss, fatigue, fevers/chills : see HPI PHYSICAL EXAM: Vitals: 09/11/24 1433 BP: 124/78 Gen: normal appearance, NAD Neuro: AAOx3 Psych: normal affect Lungs: normal respiratory effort Breasts: No lymphadenopathy, no nipple discharge able to be expressed, no masses, no skin changes Annelise was seen today for breast pain. Diagnoses and all orders for this visit: Bloody discharge from left nipple (Primary) - Bilateral diagnostic mammogram with tomosynthesis; Future - Left breast US limited; Future PLAN: -plan diagnostic breast imaging -pt showed pictures of bright red blood from nipple -planning to do at [employer] since she works there; will let us know if she has trouble getting scheduled in timely manner On this date, 09/11/24 I have spent 20 minutes reviewing previous notes, test results and face to face with the patient discussing the diagnosis and importance of compliance with the treatment plan as well as documenting on the day of the visit. Normal [facility] Chiropractic Reporton 2024 Chiropractic Report [facility] Chiropractic [facility] [place] [address] OFFICE VISIT Date of Service: 08/07/24 MR#: [id number] Acct: [id number] Name: ANNELISE BOURGEOIS Rep #: [id number] : 1985 Provider: ROSY Humphreys Age/Sex: 38/F Location: [facility] Status: Signed Intake Vital Signs 12/27/23 17:01 07/31/24 17:27 Height 5 ft 2 in 5 ft 2 in Intake Visit Reasons: Back pain Chief Complaint: neck, upper and low back pain Is patient in pain?: Yes (neck, LBP) Pain scale (1-10): 6 Allergies No Known Allergies Allergy (Verified 08/07/24 17:34) Medications ???Medication ???Instructions ???Recorded ???Confirmed ???Type bupropion HCl 150 mg tablet,12 hr 150 mg PO BID 01/26/21 08/07/24 H istory sustained-release pantoprazole 40 mg tablet,delayed 40 mg PO DAILY 01/26/21 08/07/24 History release PFSH Surgical History History of wisdom tooth extraction History of tonsillectomy and adenoidectomy Family History Other Heart disease Hypertension Social History Smoking Status: Current every day smoker tobacco type: cigarettes alcohol intake: current alcohol intake frequency: holidays/special occasions only substance use type: does not use what type of physical activity do you participate in: none HPI Back pain Chief Complaint: Neck/mid, LBP Visit Number: 2 Details: Annelise is a 38 y/o female here to follow up on neck, low and mid back pain. Pt. complains of bilateral neck pain and stiffness. She has been experiencing headaches at least once per week. She also complains of mid back pain at her bra line. She has been under a lot of stress and holds it in the mid back. She states her low back pain has improved. She thinks this is due to working a third shift job where she is up and moving more and wearing new shoes.She rates her pain 6/10.She states walking a longer distance and sitting on hard surfaces aggravate her low back pain. She treats pain with Salonpas and Ibuprofen at home as needed. She denies new injury. She reports chiropractic adjustments are helpful in relieving her pain and discomfort but it gradually returns. Location: neck/back Duration: frequent Aggravating or associated factors: lifting, bending,walking Relieving factors: chiro Pain Quality: aching, dull, sharp and radiating Exam Musc General: Yes normal posture, normal gait, joint tenderness and decreased range of motion; No muscle weakness Cervical Spine: Yes loss of normal cervical lordosis, Yes cervical muscular tenderness bilateral lower , Yes cervical spasm right greater than left lower trapezius and paracervical muscles and Yes misalignment misalignment: C5, C6 and C7 Thoracic/Lumber: Yes thoracic and lumbar spine normal to inspection, Yes paraspinal tenderness bilaterally in the upper thoracic and in the mid thoracic and on the right greater than left (lumbopelvic), Yes thoraco-lumbar spasm bilaterally (trap) in the upper thoracic and on the right greater than left (QL, piriformis) and Yes misalignment T3, T4, T5, T6, L2, L3, L4 and RIL Sacroiliac joints: on the right tender to palpation Office Procedures Procedures - Chiropractic Procedures Manipulation: Cervical C6, Lumbar L2, Thoracic T4 and Pelvis RIL Manipulation: 3-4 regions Patient Response: positive Assessment and Plan Assessment and Plan (1) Segmental and somatic dysfunction of pelvic region: Status: Acute (2) Segmental and somatic dysfunction of cervical region: Status: Acute (3) Segmental and somatic dysfunction of lumbar region: Status: Acute (4) Segmental and somatic dysfunction of thoracic region: Status: Acute (5) Spondylolisthesis at L5-S1 level: Status: Chronic Orders: Orders Chiropractic Treatments 08/07/24 M43.17 - Spondylolisthesis, lumbosacral region, M54.17 - Radiculopathy, lumbosacral region, M99.01 - Segmental and somatic dysfunction of cervical region, M99.02 - Segmental and somatic dysfunction of thoracic region, M99.03 - Segmental and somatic dysfunction of lumbar region, M99.05 - Segmental and somatic dysfunction of pelvic region Plan Patient was treated without incident. Continue care as needed. 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 Plan Details Goals Barriers: Goals Decrease pain Decrease inflammation Improve ROM Improve workability Follow Up: PRN Coding Level of Care Code No Charge Diagnoses Segmental and somatic dysfunction of pelvic region M99.05 Segmental and somatic dysfunction of cervical region M99.01 Segmental and somatic dysfunction of lumbar region M99.03 Segmental and somatic dysfunction of thoracic region M99.02 Spon (more content not included)... Normal [facility] Chiropractic Reporton 2024 Chiropractic Report [facility] [place] [facility] [place] [address] OFFICE VISIT Date of Service: 05/29/24 MR#: [id number] Acct: [id number] Name: ANNELISE BOURGEOIS Rep #: [id number] : 1985 Provider: ROSY Humphreys Age/Sex: 38/F Location: [facility] [place] Status: Signed Intake Vital Signs 12/27/23 17:01 Height 5 ft 2 in Weight: 233 lb BMI 42.6 BP 144/90 H Intake Visit Reasons: Back pain Chief Complaint: neck, upper and low back pain Is patient in pain?: Yes (neck ) Pain scale (1-10): 3 Allergies No Known Allergies Allergy (Verified 05/29/24 17:33) Medications ???Medication ???Instructions ???Recorded ???Confirmed ???Type bupropion HCl 150 mg tablet,12 hr 150 mg PO BID 01/26/21 05/29/24 History sustained-release pantoprazole 40 mg tablet,delayed 40 mg PO DAILY 01/26/21 05/29/24 History release [facility] Surgical History History of wisdom tooth extraction History of tonsillectomy and adenoidectomy Family History Other Heart disease Hypertension Social History Smoking Status: Current every day smoker tobacco type: cigarettes alcohol intake: current alcohol intake frequency: holidays/special occasions only substance use type: does not use what type of physical activity do you participate in: none HPI Back pain Chief Complaint: Neck/mid, LBP Visit Number: 1 Details: Annelise is a 38 y/o female here to follow up on neck, low and mid back pain. Pt. advises her neck is tight and mildly painful today. She rates her neck pain 3/10 and states the right side is worse. She also c/o frequent low back with sciatica pain at times. She states the sciatica pain fluctuates from left to right and extends into her bilateral hamstrings at times. She states walking a longer distance and sitting on hard surfaces aggravate her low back pain. She describes her sciatica pain as a burning sensation in her glutes and has had some numbness in her right foot while driving. She treats pain with Salonpas and Ibuprofen at home as needed. She denies new injury. She reports chiropractic adjustments are helpful in relieving her pain and discomfort but it gradually returns. Location: neck/back Duration: frequent Aggravating or associated factors: lifting, bending,walking Relieving factors: chiro Pain Quality: aching, dull, sharp and radiating Exam Musc General: Yes normal posture, normal gait, joint tenderness and decreased range of motion; No muscle weakness Cervical Spine: Yes loss of normal cervical lordosis, Yes cervical muscular tenderness right greater than left diffuse , Yes cervical spasm right greater than left lower trapezius and paracervical muscles and Yes misalignment misalignment: C5, C6 and C7 Thoracic/Lumber: Yes thoracic and lumbar spine normal to inspection, Yes paraspinal tenderness bilaterally in the upper thoracic and in the mid thoracic and on the right greater than left (lumbopelvic), Yes thoraco-lumbar spasm bilaterally (trap) in the upper thoracic and on the right greater than left (QL, piriformis) and Yes misalignment T3, T4, T5, T6, L2, L3, L4 and RIL Sacroiliac joints: on the right tender to palpation Office Procedures Procedures - Chiropractic Procedures Manipulation: Cervical C6, Lumbar L2, Thoracic T4 and Pelvis RIL Manipulation: 3-4 regions Patient Response: positive Assessment and Plan Assessment and Plan (1) Segmental and somatic dysfunction of pelvic region: Status: Acute (2) Segmental and somatic dysfunction of cervical region: Status: Acute (3) Segmental and somatic dysfunction of lumbar region: Status: Acute (4) Segmental and somatic dysfunction of thoracic region: Status: Acute (5) Lumbosacral radiculopathy: Status: Acute (6) Spondylolisthesis at L5-S1 level: Status: Chronic Orders: Orders Chiropractic Treatments Today M43.17 - Spondylolisthesis, lumbosacral region, M54.17 - Radiculopathy, lumbosacral region, M99.01 - Segmental and somatic dysfunction of cervical region, M99.02 - Segmental and somatic dysfunction of thoracic region, M99.03 - Segmental and somatic dysfunction of lumbar region, M99.05 - Segmental and somatic dysfunction of pelvic region Plan Patient was treated without incident. Offered referral for PT so that she can strengthen and stretch her low back, patient declined due to lack of time. Showed her how to do a piriformis stretch that may help with the sciatic pain. Continue care. Plan Details Goals Barriers: Goals Decrease pain Decrease inflammation Improve ROM Improve workability Follow Up: PRN Coding Level of Care Code No Charge Diagnoses Segmental and somatic dysfunction (more content not included)... Normal [facility] Chiropractic Reporton 2023 Chiropractic Report [facility] [place] [facility] [address] [place] [address] OFFICE VISIT Date of Service: 05/01/24 MR#: [id number] Acct: [id number] Name: ANNELISE BOURGEOIS Rep #: [id number] : 1985 Provider: ROSY Humphreys Age/Sex: 38/F Location: [facility] Status: Signed Intake Vital Signs 12/27/23 17:01 Height 5 ft 2 in Weight: 233 lb BMI 42.6 BP 144/90 H Intake Visit Reasons: Back pain Chief Complaint: neck, upper and low back pain Is patient in pain?: Yes (neck and low back) Pain scale (1-10): 6 Allergies No Known Allergies Allergy (Verified 05/01/24 17:32) Medications ???Medication ???Instructions ???Recorded ???Confirmed ???Type bupropion HCl 150 mg tablet,12 hr 150 mg PO BID 01/26/21 05/01/24 History sustained-release pantoprazole 40 mg tablet,delayed 40 mg PO DAILY 01/26/21 05/01/24 History release [facility] Surgical History History of wisdom tooth extraction History of tonsillectomy and adenoidectomy Family History Other Heart disease Hypertension Social History Smoking Status: Current every day smoker tobacco type: cigarettes alcohol intake: current alcohol intake frequency: holidays/special occasions only substance use type: does not use what type of physical activity do you participate in: none HPI Back pain Chief Complaint: Neck/mid, LBP Visit Number: 4 Details: Annelise is a 38 y/o female here to follow up on neck, low and mid back pain. Pt. c/o neck and upper back pain and tightness today. She also c/o low back pain equal bilaterally as well as bilateral sciatica pain at times. She states the sciatica pain was worse last week and extends into her bilateral hamstrings. She rates her overall pain 6/10 today. She states walking a longer distance and sitting on hard surfaces aggravate her low back pain. She treats pain with Salonpas and Ibuprofen at home as needed. She denies new injury, numbness or tingling. She reports chiropractic adjustments are helpful in relieving her pain and discomfort but it gradually returns. Location: neck/back Duration: intermittent Aggravating or associated factors: lifting, bending Relieving factors: chiro, stretching Pain Quality: aching, dull, sharp and radiating Exam Musc General: Yes normal posture, normal gait, joint tenderness and decreased range of motion; No muscle weakness Cervical Spine: Yes loss of normal cervical lordosis, Yes cervical muscular tenderness bilateral diffuse , Yes cervical spasm right greater than left lower trapezius and paracervical muscles and Yes misalignment misalignment: C5, C6 and C7 Thoracic/Lumber: Yes thoracic and lumbar spine normal to inspection, Yes paraspinal tenderness bilaterally in the upper thoracic and in the mid thoracic and on the right greater than left (lumbopelvic), Yes thoraco-lumbar spasm bilaterally (trap) in the upper thoracic and on the right greater than left (QL, piriformis) and Yes misalignment T3, T4, T5, T6, L2, L3, L4 and RIL Sacroiliac joints: on the right tender to palpation Office Procedures Procedures - Chiropractic Procedures Manipulation: Cervical C6, Lumbar L2, Thoracic T4 and Pelvis RIL Manipulation: 3-4 regions Patient Response: positive Assessment and Plan Assessment and Plan (1) Segmental and somatic dysfunction of pelvic region: Status: Acute (2) Segmental and somatic dysfunction of cervical region: Status: Acute (3) Segmental and somatic dysfunction of lumbar region: Status: Acute (4) Segmental and somatic dysfunction of thoracic region: Status: Acute (5) Spondylolisthesis at L5-S1 level: Status: Chronic Orders: Orders Chiropractic Treatments 05/01/24 M43.17 - Spondylolisthesis, lumbosacral region, M99.01 - Segmental and somatic dysfunction of cervical region, M99.02 - Segmental and somatic dysfunction of thoracic region, M99.03 - Segmental and somatic dysfunction of lumbar region, M99.05 - Segmental and somatic dysfunction of pelvic region Plan Patient was treated without incident. Continue care as needed. Plan Details Goals Barriers: Goals Decrease pain Decrease inflammation Improve ROM Improve workability Follow Up: PRN Coding Level of Care Code No Charge Diagnoses Segmental and somatic dysfunction of pelvic region M99.05 Segmental and somatic dysfunction of cervical region M99.01 Segmental and somatic dysfunction of lumbar region M99.03 Segmental and somatic dysfunction of thoracic region M99.02 Spondylolisthesis at L5-S1 level M43.17 CPT Codes Procedures - Manipulation: 3-4 regions (03599) 05/06/24 0908 Date Ka (more content not included)... Normal [facility] Chiropractic Reporton 2023 Chiropractic Report [facility] [place] [facility] [place] [address] OFFICE VISIT Date of Service: 03/20/24 MR#: [id number] Acct: [id number] Name: ANNELISE BOURGEOIS Rep #: [id number] : 1985 Provider: ROSY Humphreys Age/Sex: 38/F Location: [facility] [place] Status: Signed Intake Vital Signs 12/27/23 17:01 Height 5 ft 2 in Weight: 233 lb BMI 42.6 BP 144/90 H Intake Visit Reasons: Back pain Chief Complaint: neck, upper and low back pain Is patient in pain?: Yes (neck) Pain scale (1-10): 2 Allergies No Known Allergies Allergy (Verified 03/20/24 16:52) Medications ???Medication ???Instructions ???Recorded ???Confirmed ???Type bupropion HCl 150 mg tablet,12 hr 150 mg PO BID 01/26/21 03/20/24 History sustained-release pantoprazole 40 mg tablet,delayed 40 mg PO DAILY 01/26/21 03/20/24 History release [facility] Surgical History History of wisdom tooth extraction History of tonsillectomy and adenoidectomy Family History Other Heart disease Hypertension Social History Smoking Status: Current every day smoker tobacco type: cigarettes alcohol intake: current alcohol intake frequency: holidays/special occasions only substance use type: does not use what type of physical activity do you participate in: none HPI Back pain Chief Complaint: Neck/mid, LBP Visit Number: 3 Details: Annelise is a 38 y/o female here to follow up on neck, low and mid back pain. Pt c/o mild neck pain and tightness today with the right side being worse. She rates her neck pain 2/10 today. She states she has been experiencing bilateral sciatica pain at times. She states walking a longer distance and sitting on hard surfaces contribute to her low back pain. She treats pain at home with Ibuprofen as needed. She denies new injury, numbness or tingling. She reports chiropractic adjustments are helpful in relieving her pain and discomfort. Location: neck/back Duration: intermittent Aggravating or associated factors: lifting, bending Relieving factors: chiro, stretching Pain Quality: aching, dull, sharp and radiating Exam Musc General: Yes normal posture, normal gait, joint tenderness and decreased range of motion; No muscle weakness Cervical Spine: Yes loss of normal cervical lordosis, Yes cervical muscular tenderness right greater than left diffuse , Yes cervical spasm right greater than left lower trapezius and paracervical muscles and Yes misalignment misalignment: C5, C6 and C7 Thoracic/Lumber: Yes thoracic and lumbar spine normal to inspection, Yes paraspinal tenderness bilaterally in the upper thoracic and in the mid thoracic and on the right greater than left (lumbopelvic), Yes thoraco-lumbar spasm bilaterally (trap) in the upper thoracic and on the right greater than left (QL, piriformis) and Yes misalignment T3, T4, T5, T6, L2, L3, L4 and RIL Sacroiliac joints: on the right tender to palpation Office Procedures Procedures - Chiropractic Procedures Manipulation: Cervical C6, Lumbar L2, Thoracic T4 and Pelvis RIL Manipulation: 3-4 regions Patient Response: positive Assessment and Plan Assessment and Plan (1) Segmental and somatic dysfunction of pelvic region: Status: Acute (2) Segmental and somatic dysfunction of cervical region: Status: Acute (3) Segmental and somatic dysfunction of lumbar region: Status: Acute (4) Segmental and somatic dysfunction of thoracic region: Status: Acute (5) Spondylolisthesis at L5-S1 level: Status: Chronic Orders: Orders Chiropractic Treatments Today M43.17 - Spondylolisthesis, lumbosacral region, M99.01 - Segmental and somatic dysfunction of cervical region, M99.02 - Segmental and somatic dysfunction of thoracic region, M99.03 - Segmental and somatic dysfunction of lumbar region, M99.05 - Segmental and somatic dysfunction of pelvic region Plan Patient was treated without incident. Continue care as needed. Plan Details Goals Barriers: Goals Decrease pain Decrease inflammation Improve ROM Improve workability Follow Up: PRN Coding Level of Care Code No Charge Diagnoses Segmental and somatic dysfunction of pelvic region M99.05 Segmental and somatic dysfunction of cervical region M99.01 Segmental and somatic dysfunction of lumbar region M99.03 Segmental and somatic dysfunction of thoracic region M99.02 Spondylolisthesis at L5-S1 level M43.17 CPT Codes Procedures - Manipulation: 3-4 regions (96030) 03/20/24 1741 Date Kat Aguilarigntawanna Signature: Date (if applicable) CC: Normal [facility] Office Visiton 02-28-2024 Follow-up visit [id number] Annelise Bourgeois 1985 F Date Provider Department Center 02/28/2024 [facility]ENITA ZAMORA [facility] Family History Family Status - Relation Status Age at Father Mother Alive Level of Service:79862 RI INITIAL PREVENTIVE MEDICINE NEW PT AGE 18-39YRS Reason for Visit and Comments: New Patient [542] Annual Exam [83] [facility] Progress Noteon 02-28-2024 Progress Note Annelisese Bourgeois 38 y.o. HPI: The patient was seen and examined today for her annual exam. Hx of ablation and Essure. No concerns. No LMP recorded. Patient has had an ablation. Regular Periods: no, hx of ablation STD History: no, declines testing Control: Essure Family History of Breast, Ovarian , Colon or Uterine Cancer: breast cancer great aunt Preventative Health Testing: Date of Last Pap Smear: 3 years Abnormal Pap Smear History: no Colposcopy History: n/a Mammogram: age 39 Colonoscopy per PCP OB History Para Term AB Living 2 0 0 0 0 2 SAB IAB Ectopic Multiple Live Births 0 0 0 0 2 # Outcome Date GA Lbr Benny/2nd Weight Sex Type Anes PTL Lv 2 Vag-Spont LYN 1 Vag-Spont LYN Past Medical History: Diagnosis Date Acid reflux Depression Past Surgical History: Procedure Laterality Date ENDOMETRIAL ABLATION, THERMAL (HISTORICAL) essure TONSILECTOMY, ADENOIDECTOMY, BILATERAL MYRINGOTOMY AND TUBES Review of Systems REVIEW OF SYSTEMS: Gen: denies weight loss, fatigue, fevers/chills GI: denies change in appetite, bloating, pain, lumps/masses, change in bowel/bladder habits Urinary: denies dysuria, frequency, hematuria, incontinence : see HPI Objective: BP 114/72 Ht 5' 2" (1.575 m) Wt 240 lb (109 kg) BMI 43.90 kg/m? Physical Exam Gen: normal appearance, NAD Neuro: AAOx3 Psych: normal affect Lungs: normal respiratory effort Heart: normal rate Breasts: No lymphadenopathy, no nipple discharge, no masses, no skin changes External genitalia: normal, no lesions, no skin discoloration, normal introitus Urethral meatus: normal, no diverticulum or irritation present Vagina: normal, no lesions Cervix: no lesions, no motion tenderness, normal appearance Uterus: normal mobility, non tender, normal size, shape and consistency Adnexa: no masses or tenderness bilaterally Assessment: Diagnosis Plan 1. Well woman exam with routine gynecological exam Pap Smear 2. Screening for cervical cancer Pap Smear Plan: 1. Perform monthly self breast exam. Exercise at least 30min three times per week. 2. Maintain yearly visits with [facility] for well-woman exam. 3. Establish care with General PCP for routine health maintenance. Counseling Completed: 1. Reproductive Planning 2. Prevention of STD Follow up in about 1 year (around 02/27/2025) for Annual. No orders of the defined types were placed in this encounter. Normal [facility] Quantiferon TB Goldon 2023 Mitogen minus NIL >9.80 Normal [facility] Comment on above: Performed By: #### Q [facility] #### [place] [address] Quantiferon TB Gold Negative Normal Negative [facility] Comment on above: Result Comment: Inte rferon gamma release is measured for specimens from each of the four collection tubes. A qualitative result (Negative, Positive, or Indeterminate) is based on interpretation of the four values, NIL, Mitogen minus NIL(MITOGEN-NIL, TBI minus Nil (TBI-NIL), and TB2 minus NIL(TB2)-NIL). The NIL value represents nonspecific reactivity produced by the patient specimen. The MITOGEN-NIL value serves as the positive control for the patient specimen, demonstrating successful lymphocyte activity. The TBI-NIL tube specifically detects CD4+ lymphocyte reactivity, specifically stimulated by the TBI antigens. The TB2-NIL tube detects both CD4+ and CD8+ lymphocyte reactivity, stimulated by TB2 antigens. An overall Negative result does not completely rule out TB infection. A false-positive result in the absence of other clinical evidence of TB infection is not common and may be due to infection from some NTM(M. kansasii, M. szulgai, or M. marinum). Testing Performed: [place] [address] Performed By: #### Q [facility] #### [address] [address] TB1 minus NIL -0.12 IU/mL Normal -0.50-0.34 [facility] Comment on above: Performed By: #### Q [facility] #### [address] [address] TB2 minus NIL -0.10 IU/mL Normal -0.50-0.34 [facility] Comment on above: Performed By: #### Q [facility] #### [address] [address] Mumps IgG Abon 05-26-2023 Mumps IgG Abs Positive Normal [facility] Comment on above: Result Comment: Resu lts suggest response to immunization or prior exposure to the virus. REFERENCE VALUE Vaccinated: Positive (>=1.1 AI) Unvaccinated: Negative (<=0.8 AI) Performed By: #### M [facility]MP[facility] #### [address] [address] Mumps IgG Index Value 1.2 Normal [facility] Comment on above: Result Comment: Test Performed by: [facility] [place] [address] Cassandra Developer: Alcides Taylor M.D. Ph.D.; CLIA# [id number] Performed By: #### Concepción [facility]MP[facility] #### [address] [id number] Rubella IgG Abon 05-26-2023 Rubella IgG Ab Equivocal Normal [facility] Comment on above: Result Comment: Kristian mmend follow-up testing in 10-14 days if clinically indicated. REFERENCE VALUE Vaccinated: Positive (>=1.0 AI) Unvaccinated: Negative (<=0.7 AI) Performed By: #### R UBLG #### [address] [id number] Rubella IgG Index 0.9 Normal [facility] Comment on above: Result Comment: Test Performed by: [facility] [place] [address] Cassandra Developer: Alcides Taylor M.D. Ph.D.; CLIA# [id number] Performed By: #### R UBLG #### [address] [id number] Rubeola IgG Abon 05-26-2023 Rubeola IgG Ab Negative Normal [facility] Comment on above: Result Comment: REFERENCE VALUE Vaccinated: Positive (>=1.1 AI) Unvaccinated: Negative (<=0.8 AI) Performed By: #### M ESGG #### [address] [id number] Rubeola IgG Ab, Index 0.2 Normal [facility] Comment on above: Result Comment: Test Performed by: [facility] [address] [place] [address] Cassandra Developer: Alcides Taylor M.D. Ph.D.; CLIA# [id number] Performed By: #### M ESGG #### [facility] [address] [address] COVID-19 virus antigen assay Ordered By: Dr. Perkins on 07-12-2022 SARS-CoV-2 (COVID-19) Ag IA.rapid Ql (Resp) Not detected Not Detect [facility] Comment on above: Normal Reference Ran ge: Not DetectedMethod:(RT-PCR) real-time reverse transcriptase PCRLuminex JEANETH Instrument*The Food and Drug Administration (FDA) has issued an Emergency Use Authorization (EAU) for the Terapeak SARS-CoV-2 Assay for the rapid detection of the virus that causes COVID-19. This test has been validated, but the FDAs independent review of this validation is pending.*Negative results do not preclude infection and should not be used as the sole basis for treatment or patient management. Optimum specimen types and timing for peak viral levels during infections caused by SARS-CoV-2 have not been determined. Collection of multiple specimens from the same patient may be necessary to detect the virus. The possibility of a false negative result should be considered if the patient has clinical presentation or has had recent exposure. No Panel InformationOrdered By: Dr. Perkins on 07-12-2022 Influenza Types A,B Direct FA (GEORGINA) [facility] RSV Ag EIAOrdered By: Dr. Yoana pugh on 07-12-2022 RSV Ag Immune stain Ql (Tiss) [facility] Laboratory - Microbiology an d Antimicrobial susceptibilityOrdered By: Dr. Perkins on 05-24-2022 SARS-CoV-2 (COVID-19) RNA XIOMARA+probe Ql (Unsp spec) Not detected Not Detect [facility] Comment on above: Normal Reference Ran ge: Not DetectedMethod:(RT-PCR) real-time reverse transcriptase PCRLuminex JEANETH Instrument*The Food and Drug Administration (FDA) has issued an Emergency Use Authorization (EAU) for the JEANETH SARS-CoV-2 Assay for the rapid detection of the virus that causes COVID-19. This test has been validated, but the s independent review of this validation is pending.*Negative results do not preclude infection and should not be used as the sole basis for treatment or patient management. Optimum specimen types and timing for peak viral levels during infections caused by SARS-CoV-2 have not been determined. Collection of multiple specimens from the same patient may be necessary to detect the virus. The possibility of a false negative result should be considered if the patient has clinical presentation or has had recent exposure. No Panel InformationOrdered By: Dr. Perkins on 05-24-2022 Influenza Types A,B Direct FA (GEORGINA) [facility] RSV Ag EIAOrdered By: Dr. Yoana pugh on 05-24-2022 RSV Ag Immune stain Ql (Tiss) [facility] - Microbiology an d Antimicrobial susceptibilityon 05-24-2021 SARS-CoV-2 (COVID-19) RNA XIOMARA+probe Ql (Unsp spec) Not detected Not Detect [facility] Work Phone: Comment on above: Normal Reference Ran ge: Not DetectedMethod:(RT-PCR) real-time reverse transcriptase PCRLuminex JEANETH Instrument*The Food and Drug Administration (FDA) has issued an Emergency Use Authorization (EAU) for the JEANETH SARS-CoV-2 Assay for the rapid detection of the virus that causes COVID-19. This test has been validated, but the FDAs independent review of this validation is pending.*Negative results do not preclude infection and should not be used as the sole basis for treatment or patient management. Optimum specimen types and timing for peak viral levels during infections caused by SARS-CoV-2 have not been determined. Collection of multiple specimens from the same patient may be necessary to detect the virus. The possibility of a false negative result should be considered if the patient has clinical presentation or has had recent exposure. No Panel Informationon 05-24 Influenza Types A,B Direct FA (GEORGINA) [facility] Work Phone: No Panel Information Influenza Types A,B Direct FA (GEORGINA) [facility] Work Phone: RSV Ag EIA RSV Ag Immune stain Ql (Tiss) [facility] Work Phone: Vital Signs Date Time Vital Sign Value Performing Clinician Faci lity 09-11-2024 14:33-0400 Body height 157.5 cm Benita Wilson MD Work Phone: [facility] 09-11-2024 14:33-0400 Body mass index (BMI) [Ratio] 43.9 kg/m2 Benita Wilson MD Work Phone: [facility] [employer] 09-11-2024 14:33-0400 Body weight 108.86 kg Benita Wilson MD Work Phone: [facility] 09-11-2024 14:33-0400 Diastolic blood pressure 78 mm[Hg] Benita Wilson MD Work Phone: [facility] 09-11-2024 14:33-0400 Systolic blood pressure 124 mm[Hg] Benita Wilson MD Work Phone: [facility] 07-31-2024 17:27-0500 Body height 157.[address] Salomón Perkins MD Work Phone: [facility] 02-28-2024 14:05-0400 Body height 157.5 cm Benita Wilson MD Work Phone: [facility] 02-28-2024 14:05-0400 Body mass index (BMI) [Ratio] 43.9 kg/m2 Benita Wilson MD Work Phone: [facility] 02-28-2024 14:05-0400 Body weight 108.86 kg Benita Wilson MD Work Phone: [facility] 02-28-2024 14:05-0400 Diastolic blood pressure 72 mm[Hg] Benita Wilson MD Work Phone: [facility] [employer] 02-28-2024 14:05-0400 Systolic blood pressure 114 mm[Hg] Benita Wilson MD Work Phone: [facility] 02-02-2022 17:48-0400 Body height 157.[address] Salomón Perkins Work Phone: [facility] Work Phone: 02-02-2022 17:48-0400 Body mass index (BMI) [Ratio] 41.3 kg/m2 Dr. Salomón Perkins Work Phone: [facility] Work Phone: 02-02-2022 17:48-0400 Body weight 102.[address] Salomón Perkins Work Phone: [facility] Work Phone: Encounters Encounter Date Encounter Type Care Provider Facility Start: 03-12-2025 ambulatory [facility] Facility:[facility] Start: 02-27-2025 End: 02-27-[address] Александр Montgomery MD -[facility] Work Phone: Start: 02-27-2025 End: 02-27-[address] Salomón Perkins MD Work Phone: [facility] Start: 02-19-2025 End: 02-19-[address] Kat Das DC -[facility] Work Phone: Start: 02-19-2025 End: 02-19-[address] Salomón Perkins MD Work Phone: [facility] Start: 01-22-2025 ambulatory Salomón [facility] Facility:[facility] Start: 12-25-2024 End: 12-25-[address] Kat Das DC -[facility] Work Phone: Start: 12-25-2024 End: 12-25-[address] Salomón Perkins MD Work Phone: [facility] Start: 11-27-2024 End: 11-27-[address] Kat Das DC -[facility] Work Phone: Start: 11-27-2024 End: 11-27-[address] Salomón Perkins MD Work Phone: -[facility] Start: 11-25-2024 Non-patient / Non-visit Dr. Leona farooq MD -[facility] Work Phone: Start: 10-23-2024 End: 10-23-[address] Kat Das DC -[facility] Work Phone: Start: 10-23-2024 End: 10-23-[address] Salomón Perkins MD Work Phone: [facility] Work Phone: Start: 09-29-2024 End: 09-29-[address] Salomón Perkins MD Work Phone: [facility] Work Phone: Start: 09-29-2024 End: 09-29-[address] Benita Wilson MD -[facility] Work Phone: Start: 09-29-2024 End: 09-29-2024 ambulatory Benita [facility] Facility:[facility] Start: 09-25-2024 End: 09-25-[address] Kat Das DC -[facility] Work Phone: Start: 09-25-2024 End: 09-25-2024 ambulatory Salomón Perkins Facility:[facility] Start: 09-11-2024 End: 09-11-2024 Office outpatient visit 15 minutes Benita Wilson MD Work Phone: [facility] Obstetrics [facility] Gyne[facility] Comment on above: Bloody discharge fro m left nipple (Primary Dx) Start: 09-11-2024 End: 09-11-2024 ambulatory [facility] Start: 08-07-2024 End: 08-07-[address] Kat Das DC -[facility] Work Phone: Start: 08-07-2024 End: 08-07-2024 ambulatory Salomón Perkins Facility:[facility] Start: 06-04-2024 Registered [employer]Employee [employer] Start: 06-03-2024 ambulatory Health Risk Assessment Facility:[facility] Start: 05-29-2024 End: 05-29-2024 ambulatory Salomón [facility] Facility:[facility] Start: 05-01-2024 End: 05-01-2024 ambulatory Salomón [facility] Facility:[facility] Start: 03-20-2024 End: 03-20-2024 ambulatory Salomón [facility] Facility:[facility] Start: 02-28-2024 End: 02-28-2024 Initial preventive medicine new pt age 18-39yrs Benita Wilson MD Work Phone: [facility] Obstetrics [facility] Gyne[facility] Comment on above: Well woman exam with routine gynecological exam; Screening for cervical cancer Start: 02-28-2024 End: 02-28-2024 Patient encounter procedure Benita Wilson MD Work Phone: [facility] Start: 02-28-2024 End: 02-28-2024 ambulatory [facility] Start: 02-28-2024 End: 02-28-2024 Encounter for gynecological examination (general) (routine) without abnormal findings [facility] Start: 07-06-2023 ambulatory [facility] Start: 05-25-2023 End: 05-26-2023 ambulatory [facility] Start: 05-25-2023 End: 05-25-2023 [facility] [employer] Work Phone: [facility] Comment on above: Arrived Start: 09-28-2022 End: 09-28-[address] Salomón Perkins Work Phone: [facility] Work Phone: Start: 09-28-2022 End: 09-28-[address] Salomón Perkins Work Phone: [facility]-Radiology, [facility] Start: 09-14-2022 End: 09-14-[address] Salomón Perkins Work Phone: [facility] Start: 08-03-2022 End: 08-03-[address] Salomón Perkins Work Phone: [facility] Start: 07-12-2022 End: 07-12-[address] Salomón Perkins Work Phone: [facility] Work Phone: Start: 07-12-2022 End: 07-12-[address] Salomón Perkins [facility] Phone[facility] Start: 07-06-2022 End: 07-06-[address] Salomón Perkins Work Phone: [facility] Start: 06-08-2022 End: 06-08-[address] Salomón Perkins Work Phone: [facility] Start: 05-24-2022 End: 05-24-[address] Salomón Perkins Work Phone: [facility] Work Phone: Start: 05-24-2022 End: 05-24-[address] Salomón Perkins Work Phone[facility] Start: 05-11-2022 End: 05-11-[address] Salomón Perkins Work Phone: [facility] Start: 04-06-2022 End: 04-06-[address] Salomón Perkins Work Phone: [facility] Start: 02-02-2022 End: 02-02-[address] Salomón Perkins Work Phone: [facility] Start: 08-25-2021 End: 08-25-2021 Patient encounter procedure [facility]-Laboratory, Specimen Start: 05-24-2021 Patient encounter procedure [facility]-P[facility] Services/Neurology Procedures Date Procedure Procedure Detail Performing Clinician Start: 09-29-2024 Bilateral mammography Rod Perkins MD Work Phone: Start: 09-29-[address] Salomón Perkins MD Work Phone: Start: 02-28-2024 Microscopic observat ion [Identifier] in Cervix by Cyto stain Benita Wilson MD Work Phone: Start: 09-28-2022 X-ray of both feet Dr. Salomón Perkins Work Phone: Start: 05-24-2021 Influenza Types A,B Direct FA (GEORGINA) Start: 05-24-2021 End: 05-24-2021 Respiratory syncytial virus antigen assay Influenza Types A,B Direct FA (GEORGINA) Dr. Salomón Perkins Work Phone: Influenza Types A,B Direct FA (GEORGINA) Dr. Salomón Perkins Work Phone: Influenza Types A,B Direct FA (GEORGINA) Dr. Salomón Perkins Work Phone: Respiratory syncytia l virus antigen assay Dr. Salomón Perkins Work Phone: Respiratory syncytia l virus antigen assay Dr. Salomón Perkins Work Phone: Respiratory syncytia l virus antigen assay Dr. Salomón Perkins Work Phone: Plan of Treatment Date Care Activity Detail Author Start: 11-04-2059 RSV Immunization for Adults (1 - 1-dose 75+ series) RSV Immunization for Adults (1 - 1-dose 75+ series) [employer] Start: 2044 RSV Immunization age d 60 or older (1 - 1-dose 60+ series) RSV Immunization aged 60 or older (1 - 1-dose 60+ series) [employer] Start: 2034 Zoster Vaccines (1 o f 2) Zoster Vaccines (1 of 2) [employer] Start: 02-27-2029 Screening for malign ant neoplasm of cervix [employer] Start: 02-27-2027 Screening for malign ant neoplasm of cervix Pap Smear [employer] Start: 03-19-2025 End: 10-23-2025 Patient encounter procedure 03/19/2025 2:00 PM EDT Office Visit [facility] Obstetrics and Gynecology [facility] [address] [place] [address] Benita Wilson MD [address] [place] [address] [facility] Ob[facility]etrics [facility]cology - [facility] Start: 01-26-2025 Influenza vaccination Influenz a Vaccine (Season Ended) [facility] Start: 09-11-2024 End: 11-11-2025 DBT Breast - bilateral diagnostic Bilateral diagnostic mammogram with tomosynthesis Imaging Routine Bloody discharge from left nipple Expected: 09/11/2024, Expires: 11/11/2025 [facility] Work Phone: Comment on above: Expected: 09/11/2024 , Expires: 11/11/2025 Start: 09-11-2024 End: 11-11-2025 US Breast - left limited Left breast US limited Imaging Routine Bloody discharge from left nipple Expected: 09/11/2024, Expires: 11/11/2025 [facility] Comment on above: Expected: 09/11/2024 , Expires: 11/11/2025 Start: 01-27-2024 COVID-19 Vaccine ( season) COVID-19 Vaccine ( season) [facility] Start: 01-27-2024 COVID-19 Vaccine ( season) COVID-19 Vaccine ( season) [facility] Start: 01-27-2024 Influenza vaccination Influenza Vacc ine (#1) [facility] Start: 01-26-2023 FLU (#1) FLU (#1) [facility] Start: 2014 Screening for malign ant neoplasm of cervix [facility] Start: 05-06-2009 MMR Vaccines (1 of 1 - Standard series) MMR Vaccines (1 of 1 - Standard series) [facility] Start: 05-06-2009 Varicella vaccination Varicell a Vaccines (1 of 2 - 13+ 2-dose series) [facility] Start: 2005 Microscopic observat ion [Identifier] in Cervix by Cyto stain Pap Smear [facility] Start: 2005 Screening for malign ant neoplasm of cervix Pap Smear [facility] Start: 11-04-2003 DTaP/Tdap/Td Vaccine s (1 - Tdap) DTaP/Tdap/Td Vaccines (1 - Tdap) [facility] Start: 11-04-2003 Hepatitis B Vaccines (1 of 3 - 19+ 3-dose series) Hepatitis B Vaccines (1 of 3 - 19+ 3-dose series) [facility] Start: 2002 Hepatitis C screening Hepatitis C Sc reening [facility] Start: 2000 MenB (1 of 2 - MenB 2-Dose Series Bexsero) MenB (1 of 2 - MenB 2-Dose Series Bexsero) [facility] Start: 1996 Depression Screening Depression Scre ening [facility] Start: 11-04-1991 Tetanus Diphtheria a nd Pertussis Vaccines (1 - Tdap) Tetanus Diphtheria and Pertussis Vaccines (1 - Tdap) [facility] Start: 1985 MMR (1 of 1 - Standa rd series) MMR (1 of 1 - Standard series) [facility] Start: 1985 Varicella (1 of 2 - 2-dose childhood series) Varicella (1 of 2 - 2-dose childhood series) [facility] Start: 05-05-1985 COVID-19 (#1) COVID-19 (#1) [facility] Start: 1984 Hepatitis B (1 of 3 - 3-dose series) Hepatitis B (1 of 3 - 3-dose series) [facility] Start: 1984 HIV screening HIV Screening [facility] Cytology Cervical or vaginal smear or scraping study Pap Smear Pathology and Cytology Routine Well woman exam with routine gynecological exam Screening for cervical cancer Ordered: 02/28/2024 [facility] Work Phone: Comment on above: Ordered: 02/28/2024 End: 05-25-2023 Mumps IgG Ab Mumps IgG Ab Lab Routine For lab collect this frequency defaults to the next routine lab draw time. Routine times: 0600; 1100; 1400; 1900; 2200 for 1 Occurrences starting 05/25/2023 until 05/25/2023 [facility] Comment on above: For lab collect this frequency defaults to the next routine lab draw time. Routine times: 0600; 1100; 1400; 1900; 2200 for 1 Occurrences starting 05/25/2023 until 05/25/2023 Mumps IgG Ab Mumps IgG Ab Lab Routine 05/25/2023 8:39 AM [facility] End: 05-25-2023 Quantiferon TB Gold Quantiferon TB Gold Lab Routine For lab collect this frequency defaults to the next routine lab draw time. Routine times: 0600; 1100; 1400; 1900; 2200 for 1 Occurrences starting 05/25/2023 until 05/25/2023 [facility] Comment on above: For lab collect this frequency defaults to the next routine lab draw time. Routine times: 0600; 1100; 1400; 1900; 2200 for 1 Occurrences starting 05/25/2023 until 05/25/2023 Quantiferon TB Gold Quantiferon TB Gold Lab Routine 05/25/2023 8:39 AM [facility] End: 05-25-2023 Rubella IgG Ab Rubella IgG Ab Lab Routine For lab collect this frequency defaults to the next routine lab draw time. Routine times: 0600; 1100; 1400; 1900; 2200 for 1 Occurrences starting 05/25/2023 until 05/25/2023 [facility] Comment on above: For lab collect this frequency defaults to the next routine lab draw time. Routine times: 0600; 1100; 1400; 1900; 2200 for 1 Occurrences starting 05/25/2023 until 05/25/2023 Rubella IgG Ab Rubella IgG Ab L ab Routine 05/25/2023 8:39 AM [facility] End: 05-25-2023 Rubeola antibody IgG Rubeola antibody IgG Lab Routine For lab collect this frequency defaults to the next routine lab draw time. Routine times: 0600; 1100; 1400; 1900; 2200 for 1 Occurrences starting 05/25/2023 until 05/25/2023 [facility] Work Phone: Comment on above: For lab collect this frequency defaults to the next routine lab draw time. Routine times: 0600; 1100; 1400; 1900; 2200 for 1 Occurrences starting 05/25/2023 until 05/25/2023 Rubeola antibody IgG Rubeola ant ibody IgG Lab Routine 05/25/2023 8:32 AM EST [facility] Immunizations Immunization Date Immunization Notes Care Provider Fa liyah 07-07-2024 Hepatitis B vaccine (recombinant), CpG adjuvanted Dr. Salomón Perkins MD Work Phone: [facility] 06-04-2024 Hepatitis B vaccine (recombinant), CpG adjuvanted Dr. Salomón Perkins MD Work Phone: [facility] 03-27-2024 influenza, injectabl e, quadrivalent, preservative free Dr. Salomón Perkins MD Work Phone: [facility] 05-25-2023 influenza virus vaccine, unspecified formulation Benita Wilson MD Work Phone: [facility] 03-17-2021 Covid (Moderna) Dr. Salomón Perkins MD Work Phone: [facility] 07-15-2020 Covid (Moderna) [facility] 06-17-2020 Covid (Moderna) [facility] Payers Date Payer Category Payer Private Health Insurance [id number] 2024 Self-pay [id number] 2023 Commercial Managed Care - HMO [id number] 2023 Unknown [id number] 2023 Unknown [id number] 2013 Unknown [id number] 1984 Unknown [id number] Unknown [id number] Unknown [id number] 2.16.8 [id number] Unknown [id number] 2.16.8 [id number] Unknown [id number] 2.16.8 [id number] Unknown [id number] 2.16.8 [id number] Unknown [id number] 2.16.8 [id number] Unknown [id number] 2.16.8 [id number] Unknown [id number] 2.16.8 [id number] Unknown [id number] 2.16.8 [id number] Unknown [id number] 2.16.8 [id number] Unknown [id number] 2.16.8 [id number] Unknown [id number] 2.16.8 [id number] Unknown [id number] 2.16.8 [id number] Unknown [id number] 2.16.8 [id number] Unknown [id number] 2.16.8 [id number] Social History Date Type Detail Facility Start: 03-17-2021 End: 09-14-2022 Tobacco smoking status KSIS Unknown if ever smoked [facility] Start: 11-14-2019 Cigarettes [facility] Start: 1985 Sex Assigned At Female [facility] Start: 1985 Sex Assigned At Not on file [facility] Start: 02-28-2024 End: 09-11-2024 Gender identity Not on file [facility] Start: 02-28-2024 Tobacco smoking stat us KSIS Never smoked tobacco [facility] Start: 02-28-2024 Tobacco use and exposure Smokeless tobacco non-user [facility] Start: 02-28-2024 End: 09-11-2024 Alcoholic beverage intake Current drinker of alcohol (finding) [facility] Start: 02-28-2024 End: 09-11-2024 History of Social function [facility] How often do you nee d to have someone help you when you read instructions, pamphlets, or other written material from your doctor or pharmacy [SILS] Never [facility] Has the [place], or [place] threatened to shut off services in your home in past 12Mo No [facility] Are you now , , , , never or living with a partner? Never [facility] How often to you hav e a drink containing alcohol? Never [facility] Do you feel stress - tense, restless, nervous, or anxious, or unable to sleep at night because your mind is troubled all the time - these days [OSQ] To some extent [facility] (I/We) worried wheth er (my/our) food would run out before (I/we) got money to buy more. Never true [facility] [employer] Start: 05-25-2023 Sex Female (finding) [facility] Start: 07-31-2024 [facility] Goals Date Patient Goal Desired Activity /State Clinical Notes 02-28-2024 to 02-19-2025 Note Date & Type Note Facility 02-19-2025 Progress note [facility] 02-19-2025 Progress note Note Date/Time February 19, 2025 5:42pm [facility] [address] [place] [id number] OFFICE VISIT Date of Service: 02/19/25 MR#: [id number] Acct: [id number] Name: ROXANNASTUANNELISE PEDRAZA Rep #: [id number] : 1985 Provider: ROSY Das Age/Sex: 39/F Location: [facility] Status: Signed Intake Vital Signs 07/31/24 17:27 Height 5 ft 2 in Intake Visit Reasons: BACK PAIN, Back pain Chief Complaint: neck, upper and low back pain [employer] Supervisor Required: No Accompanied by: Self Is patient in pain?: Yes (low back, sciatic and hips) Pain scale (1-10): 8 Allergies No Known Allergies Allergy (Verified 02/19/25 17:29) Medications ?Medication ?Instructions ?Recorded ?Confirmed ?Type pantoprazole 40 mg tablet,delayed 40 mg PO DAILY 01/2602/19/25 History release fluoxetine 60 mg tablet 60 mg PO QDAY 02/19/2502/19 History PFSH Surgical History History of wisdom tooth extraction History of tonsillectomy and adenoidectomy Family History Other Heart disease Hypertension Social History Smoking Status: Current every day smoker tobacco type: cigarettes alcohol intake: current alcohol intake frequency: holidays/special occasions only substance use type: does not use what type of physical activity do you participate in: none HPI Back pain Chief Complaint: Neck/mid, LBP Visit Number: [id number] Details: Annelise is a 39 y/o female here to follow up on neck, low and mid back pain. Pt. continues to complain of increased low back pain. She states it is tight, painful and has sciatica pain into her bilateral glutes that alternates from theleft to right. She rates her low back pain 8/10. She states her pain increases with bending and prolonged standing and her legs feel like they are weak and going to give out. She c/o neck tension that extends into her upper back equal across. Currently experiencing a migraine. 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 She states walking longer distances and sitting on hard surfaces aggravates her low back pain. She treats pain with Salonpas and Ibuprofen at home as needed. She denies new injury, numbness or tingling. She reports chiropractic adjustments are helpful in relieving her painand discomfort but it gradually returns. Location: neck/back Duration: frequent Aggravating or associated factors: lifting, bending,walking Relieving factors: chiro Pain Quality: aching, dull, sharp and radiating Exam Musc General: Yes normal posture, normal gait, joint tenderness and decreased range of motion; No muscle weakness Cervical Spine: Yes loss of normal cervical lordosis, Yes cervical muscular tenderness bilateral diffuse , Yes cervical spasm right greater than left lower trapezius and paracervical muscles and Yes misalignment misalignment: C5, C6 andC7 Thoracic/Lumber: Yes thoracic and lumbar spine normal to inspection, Yes paraspinal tenderness bilaterally in the upper thoracic and in the mid thoracic and on the right greater than left (lumbopelvic), Yes thoraco-lumbar spasm bilaterally (trap) in the upper thoracic and on the right greater than left (QL,piriformis) and Yes misalignment T3, T4, T5, T6, L2, L3, L4 and RIL Sacroiliac joints: on the right tender to palpation Office Procedures Procedures - Chiropractic Procedures Manipulation: Cervical C6, Lumbar L2, Thoracic T4 and Pelvis RIL Manipulation: 3-4 regions Electronic Stimulation: No Traction, Mechanical: Yes Hot and/or cold packs: No Patient Response: positive Assessment and Plan Assessment and Plan (1) Segmental and somatic dysfunction of pelvic region: Status: Acute (2) Segmental and somatic dysfunction of cervical region: Status: Acute (3) Segmental and somatic dysfunction of lumbar region: Status: Acute (4) Segmental and somatic dysfunction of thoracic region: Status: Acute Plan Patient was treated without incident. Continue care as needed. Plan Details Goals & Barriers: Goals Decrease pain Decrease inflammation Improve ROM Improve workability Follow Up: PRN Coding Level of Care Code No Charge Diagnoses Segmental and somatic dysfunction of pelvic region M99.05 Segmental and somatic dysfunction of cervical region M99.01 Segmental and somatic dysfunction of lumbar region M99.03 Segmental and somatic dysfunction of thoracic region M99.02 CPT Codes Procedures - Manipulation: 3-4 regions (36750) Procedures - Traction, Mechanical: Yes (19562) 02/23/25 0854 <Electronically signed by Kat Thapa> Date _ Kat Ibarra Signature: Date (if applicable) CC: ~ [facility] Work Phone: 1(116) 115-758407-03-2025 Evaluation note* Diagnosis Onset Date Resolution Status Admit Date Lumbosacral radiculopathy acute November 27, 2024 5:21pm Segmental and somatic dysfunction of cervical region acute J idris2024 5:21pm Segmental and somatic dysfunction of lumbar region acute Nov 5:21pm Segmental and somatic dysfunction of pelvic region acute Nov 5:21pm Segmental and somatic dysfunction of thoracic region acute J idris2024 5:21pm Lumbosacral radiculopathy acute December 25, 2024 5:30pm Segmental and somatic dysfunction of cervical region acute J idris 2024 5:30pm Segmental and somatic dysfunction of lumbar region acute Nov 5:30pm Segmental and somatic dysfunction of pelvic region acute Nov 5:30pm Segmental and somatic dysfunction of thoracic region acute J idris 2024 5:30pm [facility]mental and [facility] of [facility] Segmental and somatic dysfunction of [facility] Segmental and somatic dysfunction of pelvic region acute [facility] 2024 5:22pm Segmental and somatic dysfunction of thoracic region acute S epteer 2024 5:22pm [facility] Work Phone: 1(649) 332-379705-05-2025 Radiology Diagnostic study note [facility] Imaging Services [address] [place], [place] [id number] Breast Limited Unilateral MR#: [id number] Acct: [id number] Name: ANNELISE BOURGEOIS Rep #: [id number] : 1985 F 38 From: Antonio Hampton DO PCP: Dr. Salomón Perkins MD Status: REG C JESSIE Study:Breast Limited Unilateral Date of Exam: 09/29/24 Exam# [id number] Ordering Dr: Emilia Wilson MD PROCEDURE: BREAST LIMITED UNILATERAL 09/29/2024 REASON FOR EXAM: BLOODY NIPPLE DISCHARGE left nipple discharge which is sometimes clear, sometimes bloody and sometimes yellowish. It is spontaneous. She has been having it for several months. Inconclusive mammogram. TECHNIQUE: Targeted left breast ultrasound. COMPARISON: Mammogram dated 09/29/2024 FINDINGS: Left breast ultrasound was targeted to the retroareolar region. There are minimally ectatic ducts identified in the retroareolar region of the left breast. No obvious filling defect is seen in any of the ducts on the images submitted for review. The type of discharge thatshe is describing issomewhat worrisome for malignancy. A galactogram or MRI examination should be performed if the patient's symptoms continueor worsen. Otherwise, the patient should return in 1 year for routine yearly screening mammography. US/Breast Limited Unilateral IMPRESSION: Impression: There are minimally ectatic ducts identified in the retroareolar region of the left breast. No obvious filling defect is seen in any of the ducts on the images submitted for review. The typeof discharge that she is describing is somewhat worrisome for malignancy. A galactogram or MRI examination should be performed if the patient's symptoms continue or worsen. Otherwise, the patient should return in 1 year for routine yearly screening mammography Birads: BI-RADS 2: BENIGN. RECOMMEND ANNUAL MAMMOGRAPHIC SCREENING. Reading Location: [id number] CC: Dr. Benita Wilson MD; Dr. Salomón Perkins MD ~ Land Developer: Signed [facility]05-01-2025 Evaluation note* Diagnosis Onset Date Resolution Status Admit Date Segmental and somatic dysfunction of cervical region acute M ay 2024 5:18pm Segmental and somatic dysfunction of lumbar region acute September 25, 2024 5:18pm Segmental and somatic dysfunction of pelvic region acute September 25, 2024 5:18pm Segmental and somatic dysfunction of thoracic region acute M ay 2024 5:18pm Spondylolisthesis at L5-S1 level chr onic September 25, 2024 5:18pm Back pain noneactive September 25, 2024 5:18pm Segmental and somatic dysfunction of cervical region acute M ay 2024 5:20pm Segmental and somatic dysfunction of lumbar region acute October 23, 2024 5:20pm Segmental and somatic dysfunction of pelvic region acute October 23, 2024 5:20pm Segmental and somatic dysfunction of thoracic region acute M ay 2024 5:20pm Spondylolisthesis at L5-S1 level chr onic October 23, 2024 5:20pm Lumbosacral radiculopathy acute November 27, 2024 5:21pm Segmental and somatic dysfunction of cervical region acute J 2024 5:21pm Segmental and somatic dysfunction of lumbar region acute Nov 5:21pm Segmental and somatic dysfunction of pelvic region acute Nov 5:21pm Segmental and somatic dysfunction of thoracic region acute J 2024 5:21pm Lumbosacral radiculopathy acute December 25, 2024 5:30pm Segmental and somatic dysfunction of cervical region acute J 2024 5:30pm Segmental and somatic dysfunction of lumbar region acute Nov 5:30pm Segmental and somatic dysfunction of pelvic region acute Nov 5:30pm Segmental and somatic dysfunction of thoracic region acute J idris 2024 5:30pm Spondylolisthesis at L5-S1 level chr onic December 25, 2024 5:30pm Back pain noneactive December 25 5:30pm [facility] Work Phone: 1(127) 490-805504-17-2025 History of Present illness Narrative* Benita Wilson MD - 09/11/2024 3:00 PM EDT HPI: Here for 3-4 month hx of bloody nipple discharge from left side. No pain or lumps. No skin changes. REVIEW OF SYSTEMS: Gen: denies weight loss, fatigue, fevers/chills : see HPI PHYSICAL EXAM: Vitals: 09/11/24 1433 BP: 124/78 Gen: normal appearance, NAD Neuro: AAOx3 Psych: normal affect Lungs: normal respiratory effort Breasts: No lymphadenopathy, no nipple discharge able to be expressed, no masses, no skin changes Annelise was seen today for breast pain. Diagnoses and all orders for this visit: Bloody discharge from left nipple (Primary) - Bilateral diagnostic mammogram with tomosynthesis; Future - Left breast US limited; Future PLAN: -plan diagnostic breast imaging -pt showed pictures of bright red blood from nipple -planning to do at [employer] since she works there; will let us know if she has trouble getting scheduled in timely manner On this date, 09/11/24 I have spent 20 minutes reviewing previous notes, test results and face to face with the patient discussing the diagnosis and importance of compliance with the treatment plan as well as documenting on the day of the visit. documented in this [facility]03-13-2025 Evaluation note* Diagnosis Onset Date Resolution Status Admit Date Segmental and somatic dysfunction of cervical region acute M [facility] 2024 5:23pm Segmental and somatic dysfunction of lumbar region acute Mar 2024 5:23pm Segmental and somatic dysfunction of pelvic region acute [facility] 2024 5:23pm Segmental and somatic dysfunction of thoracic region acute [facility] 2024 5:23pm Spondylolisthesis at L5-S1 level [facility] on August 07, 2024 5:23pm Segmental and somatic dysfunction of cervical region acute [facility] 2024 5:18pm Segmental and somatic dysfunction of lumbar region acute September 25, 2024 5:18pm Segmental and somatic dysfunction of pelvic region acute September 25, 2024 5:18pm Segmental and somatic dysfunction of thoracic region acute [facility] 2024 5:18pm Spondylolisthesis at L5-S1 level [facility] September 25, 2024 5:18pm Back pain noneactive September 25, 2024 5:18pm [facility] Work Phone: 1([phone]) 827-468803-13-2025 Evaluation note* Diagnosis Onset Date Resolution Status Admit Date Segmental and somatic dysfunction of cervical region acute [facility] 2024 5:23pm Segmental and somatic dysfunction of lumbar region acute Mar 2024 5:23pm Segmental and somatic dysfunction of pelvic region acute [facility] 2024 5:23pm Segmental and somatic dysfunction of thoracic region acute M [facility] 2024 5:23pm Spondylolisthesis at L5-S1 level [facility] onic August 07, 2024 5:23pm Segmental and somatic dysfunction of cervical region acute M ay 2024 5:18pm Segmental and somatic dysfunction of lumbar region acute September 25, 2024 5:18pm Segmental and somatic dysfunction of pelvic region acute September 25, 2024 5:18pm Segmental and somatic dysfunction of thoracic region acute M 2024 5:18pm Spondylolisthesis at L5-S1 level chr onic September 25, 2024 5:18pm Back pain noneactive September 25, 2024 5:18pm Segmental and somatic dysfunction of cervical region acute M ay 2024 5:20pm Segmental and somatic dysfunction of lumbar region acute October 23, 2024 5:20pm Segmental and somatic dysfunction of pelvic region acute October 23, 2024 5:20pm Segmental and somatic dysfunction of thoracic region acute M 2024 5:20pm Spondylolisthesis at L5-S1 level chr onic October 23, 2024 5:20pm Back pain noneactive October 23, 2024 5:20pm [place] [employer] Work Phone: 1(655) 625-397203-13-2025 Evaluation note* Diagnosis Onset Date Resolution Status Admit Date Segmental and somatic dysfunction of cervical region acute M [facility] 2024 5:23pm Segmental and somatic dysfunction of lumbar region acute [facility] 2024 5:23pm Segmental and somatic dysfunction of pelvic region acute [facility] 2024 5:23pm Segmental and somatic dysfunction of thoracic region acute [facility] 2024 5:23pm Spondylolisthesis at L5-S1 level [facility] onic August 07, 2024 5:23pm Segmental and somatic dysfunction of cervical region acute M ay 2024 5:18pm Segmental and somatic dysfunction of lumbar region acute September 25, 2024 5:18pm Segmental and somatic dysfunction of pelvic region acute September 25, 2024 5:18pm Segmental and somatic dysfunction of thoracic region acute M 2024 5:18pm Spondylolisthesis at L5-S1 level chr onic September 25, 2024 5:18pm Back pain noneactive September 25, 2024 5:18pm Segmental and somatic dysfunction of cervical region acute M ay 2024 5:20pm Segmental and somatic dysfunction of lumbar region acute October 23, 2024 5:20pm Segmental and somatic dysfunction of pelvic region acute October 23, 2024 5:20pm Segmental and somatic dysfunction of thoracic region acute M ay 2024 5:20pm Spondylolisthesis at L5-S1 level chr onic October 23, 2024 5:20pm Lumbosacral radiculopathy acute November 27, 2024 5:21pm Segmental and somatic dysfunction of cervical region acute J idris2024 5:21pm Segmental and somatic dysfunction of lumbar region acute Nov 5:21pm Segmental and somatic dysfunction of pelvic region acute Nov 5:21pm Segmental and somatic dysfunction of thoracic region acute J idris2024 5:21pm Spondylolisthesis at L5-S1 level chr onic November 27, 2024 5:21pm Back pain noneactive November 27, 2024 5:21pm [place] [employer] Work Phone: 1(486) 438-888910-03-2024 History of Present illness Narrative* Benita Wilson MD - 02/28/2024 2:00 PM EDT Images from the original note were not included. Annelise Roxannanick 38 y.o. HPI: The patient was seen and examined today for her annual exam. Hx of ablation and Essure. No concerns. No LMP recorded. Patient has had an ablation. Regular Periods: no, hx of ablation STD History: no, declines testing Control: Essure Family History of Breast, Ovarian , Colon or Uterine Cancer: breast cancer great aunt Preventative Health Testing: Date of Last Pap Smear: 3 years Abnormal Pap Smear History: no Colposcopy History: n/a Mammogram: age 39 Colonoscopy per PCP OB History Para Term AB Living 2 0 0 0 0 2 SAB IAB Ectopic Multiple Live Births 0 0 0 0 2 # Outcome Date GA Lbr Benny/2nd Weight Sex Type Anes PTL Lv 2 Vag-Spont LYN 1 Vag-Spont LYN Past Medical History: Diagnosis Date Acid reflux Depression Past Surgical History: Procedure Laterality Date ENDOMETRIAL ABLATION, THERMAL (HISTORICAL) essure TONSILECTOMY, ADENOIDECTOMY, BILATERAL MYRINGOTOMY AND TUBES Review of Systems REVIEW OF SYSTEMS: Gen: denies weight loss, fatigue, fevers/chills GI: denies change in appetite, bloating, pain, lumps/masses, change in bowel/bladder habits Urinary: denies dysuria, frequency, hematuria, incontinence : see HPI Objective: BP 114/72 Ht 5' 2" (1.575 m) Wt 240 lb (109 kg) BMI 43.90 kg/m Physical Exam Gen: normal appearance, NAD Neuro: AAOx3 Psych: normal affect Lungs: normal respiratory effort Heart: normal rate Breasts: No lymphadenopathy, no nipple discharge, no masses, no skin changes External genitalia: normal, no lesions, no skin discoloration, normal introitus Urethral meatus: normal, no diverticulum or irritation present Vagina: normal, no lesions Cervix: no lesions, no motion tenderness, normal appearance Uterus: normal mobility, non tender, normal size, shape and consistency Adnexa: no masses or tenderness bilaterally Assessment: Diagnosis Plan 1. Well woman exam with routine gynecological exam Pap Smear 2. Screening for cervical cancer Pap Smear Plan: 1. Perform monthly self breast exam. Exercise at least 30min three times per week. 2. Maintain yearly visits with [employer] for well-woman exam. 3. Establish care with General PCP for routine health maintenance. Counseling Completed: 1. Reproductive Planning 2. Prevention of STD Follow up in about 1 year (around 02/27/2025) for Annual. No orders of the defined types were placed in this encounter. [facility] noteNo assessment information availableWMetroHealth [facility] Work Phone: Evaluation note* Diagnosis Onset Date Resolution Status Segmental and somatic dysfunction of cervical region acute Segmental and somatic dysfunction of lumbar region acute Segmental and somatic dysfunction of pelvic region acute Segmental and somatic dysfunction of thoracic region acute Spondylolisthesis at L5-S1 level chronic Segmental and somatic dysfunction of cervical region acute Segmental and somatic dysfunction of lumbar region acute Segmental and somatic dysfunction of pelvic region acute Segmental and somatic dysfunction of thoracic region acute Spondylolisthesis at L5-S1 level chronic Back pain noneactive Segmental and somatic dysfunction of cervical region acute Segmental and somatic dysfunction of lumbar region acute Segmental and somatic dysfunction of pelvic region acute Segmental and somatic dysfunction of thoracic region acute Spondylolisthesis at L5-S1 level chronic Back pain noneactive [facility] Work Phone: Evaluation note* Diagnosis Onset Date Resolution Status Segmental and somatic dysfunction of cervical region acute Segmental and somatic dysfunction of lumbar region acute Segmental and somatic dysfunction of pelvic region acute Segmental and somatic dysfunction of thoracic region acute Spondylolisthesis at L5-S1 level chronic Back pain noneactive Segmental and somatic dysfunction of cervical region acute Segmental and somatic dysfunction of lumbar region acute Segmental and somatic dysfunction of pelvic region acute Segmental and somatic dysfunction of thoracic region acute Spondylolisthesis at L5-S1 level chronic Back pain noneactive Segmental and somatic dysfunction of cervical region acute Segmental and somatic dysfunction of lumbar region acute Segmental and somatic dysfunction of pelvic region acute Segmental and somatic dysfunction of thoracic region acute Spondylolisthesis at L5-S1 level chronic Back pain noneactive Segmental and somatic dysfunction of cervical region acute Segmental and somatic dysfunction of lumbar region acute Segmental and somatic dysfunction of pelvic region acute Segmental and somatic dysfunction of thoracic region acute Spondylolisthesis at L5-S1 level chronic Back pain noneactive [facility] Work Phone: Evaluation note* Diagnosis Onset Date Resolution Status Segmental and somatic dysfunction of cervical region acute Segmental and somatic dysfunction of lumbar region acute Segmental and somatic dysfunction of pelvic region acute Segmental and somatic dysfunction of thoracic region acute Spondylolisthesis at L5-S1 level chronic Back pain noneactive Segmental and somatic dysfunction of cervical region acute Segmental and somatic dysfunction of lumbar region acute Segmental and somatic dysfunction of pelvic region acute Segmental and somatic dysfunction of thoracic region acute Spondylolisthesis at L5-S1 level chronic Back pain noneactive Segmental and somatic dysfunction of cervical region acute Segmental and somatic dysfunction of lumbar region acute Segmental and somatic dysfunction of pelvic region acute Segmental and somatic dysfunction of thoracic region acute Spondylolisthesis at L5-S1 level chronic Back pain noneactive Segmental and somatic dysfunction of cervical region acute Segmental and somatic dysfunction of lumbar region acute Segmental and somatic dysfunction of pelvic region acute Segmental and somatic dysfunction of thoracic region acute Back pain noneactive [facility] Work Phone: Evaluation note* Diagnosis Well woman exam with routine gynecological exam Routine gynecological examination Screening for cervical cancer Screening for malignant neoplasm of the cervix [facility] Diagnosis Bloody discharge from left nipple- Primary [facility] (narrative)No reason for referral information availableWMetroHealth [facility] Work Phone: Chief Complaint and Reason for Visit Chief Complaint EXSPOSURE Chief Complaint reeval back pain Back pain Back pain CHILLS WITHOUT FEVER Reason for Visit Segmental and somati c dysfunction of cervical region Segmental and somatic dysfunction of lumbar region Segmental and somatic dysfunction of pelvic region Segmental and somatic dysfunction of thoracic region Spondylolisthesis at L5-S1 level Segmental and somatic dysfunction of cervical region Segmental and somatic dysfunction of lumbar region Segmental and somatic dysfunction of pelvic region Segmental and somatic dysfunction of thoracic region Spondylolisthesis at L5-S1 level Back pain Segmental and somatic dysfunction of cervical region Segmental and somatic dysfunction of lumbar region Segmental and somatic dysfunction of pelvic region Segmental and somatic dysfunction of thoracic region Spondylolisthesis at L5-S1 level Back pain Chief Complaint Back pain Back pain CHILLS WITHOUT FEVER Back pain Back pain SCREENING Reason for Visit Segmental and somati c dysfunction of cervical region Segmental and somatic dysfunction of lumbar region Segmental and somatic dysfunction of pelvic region Segmental and somatic dysfunction of thoracic region Spondylolisthesis at L5-S1 level Back pain Segmental and somatic dysfunction of cervical region Segmental and somatic dysfunction of lumbar region Segmental and somatic dysfunction of pelvic region Segmental and somatic dysfunction of thoracic region Spondylolisthesis at L5-S1 level Back pain Segmental and somatic dysfunction of cervical region Segmental and somatic dysfunction of lumbar region Segmental and somatic dysfunction of pelvic region Segmental and somatic dysfunction of thoracic region Spondylolisthesis at L5-S1 level Back pain Segmental and somatic dysfunction of cervical region Segmental and somatic dysfunction of lumbar region Segmental and somatic dysfunction of pelvic region Segmental and somatic dysfunction of thoracic region Spondylolisthesis at L5-S1 level Back pain Chief Complaint Back pain Back pain SCREENING Back pain Back pain RIGHT FOOT ONLY HEEL PAIN Reason for Visit Segmental and somati c dysfunction of cervical region Segmental and somatic dysfunction of lumbar region Segmental and somatic dysfunction of pelvic region Segmental and somatic dysfunction of thoracic region Spondylolisthesis at L5-S1 level Back pain Segmental and somatic dysfunction of cervical region Segmental and somatic dysfunction of lumbar region Segmental and somatic dysfunction of pelvic region Segmental and somatic dysfunction of thoracic region Spondylolisthesis at L5-S1 level Back pain Segmental and somatic dysfunction of cervical region Segmental and somatic dysfunction of lumbar region Segmental and somatic dysfunction of pelvic region Segmental and somatic dysfunction of thoracic region Spondylolisthesis at L5-S1 level Back pain Segmental and somatic dysfunction of cervical region Segmental and somatic dysfunction of lumbar region Segmental and somatic dysfunction of pelvic region Segmental and somatic dysfunction of thoracic region Back pain Chief Complaint Admit Date BACK PAIN August 07, 2024 5:2 3pm BACK PAIN September 25, 2024 5:18pm LT BREAST BLOODY NIPPLE DISCHARGE May 5t h2024 1:35pm Reason for Visit Admit Date Segmental and somatic dysfunction of cer vical region August 07, 2024 5:23pm Segmental and somatic dysfunction of lum bar region August 07, 2024 5:23pm Segmental and somatic dysfunction of pel brittney region August 07, 2024 5:23pm Segmental and somatic dysfunction of tho racic region August 07, 2024 5:23pm Spondylolisthesis at L5-S1 level July 26 3t2024 5:23pm Segmental and somatic dysfunction of cer vical region September 25, 2024 5:18pm Segmental and somatic dysfunction of lum bar region September 25, 2024 5:18pm Segmental and somatic dysfunction of pel brittney region September 25, 2024 5:18pm Segmental and somatic dysfunction of tho racic region September 25, 2024 5:18pm Spondylolisthesis at L5-S1 level September 5:18pm Back pain September 25, 2024 5:18pm Chief Complaint Admit Date BACK PAIN August 07, 2024 5:2 3pm BACK PAIN September 25, 2024 5:18pm LT BREAST BLOODY NIPPLE DISCHARGE May 5t h2024 1:35pm BACK PAIN October 23, 2024 5:20p m Reason for Visit Admit Date Segmental and somatic dysfunction of cer vical region August 07, 2024 5:23pm Segmental and somatic dysfunction of lum bar region August 07, 2024 5:23pm Segmental and somatic dysfunction of pel brittney region August 07, 2024 5:23pm Segmental and somatic dysfunction of tho racic region August 07, 2024 5:23pm Spondylolisthesis at L5-S1 level July 26 3t2024 5:23pm Segmental and somatic dysfunction of cer vical region September 25, 2024 5:18pm Segmental and somatic dysfunction of lum bar region September 25, 2024 5:18pm Segmental and somatic dysfunction of pel brittney region September 25, 2024 5:18pm Segmental and somatic dysfunction of tho racic region September 25, 2024 5:18pm Spondylolisthesis at L5-S1 level September 5:18pm Back pain September 25, 2024 5:18pm Segmental and somatic dysfunction of cer vical region October 23, 2024 5:20pm Segmental and somatic dysfunction of lum bar region October 23, 2024 5:20pm Segmental and somatic dysfunction of pel brittney region October 23, 2024 5:20pm Segmental and somatic dysfunction of tho racic region October 23, 2024 5:20pm Spondylolisthesis at L5-S1 level September 5:20pm Back pain October 23, 2024 5:20p m Chief Complaint Admit Date BACK PAIN August 07, 2024 5:2 3pm BACK PAIN September 25, 2024 5:18pm LT BREAST BLOODY NIPPLE DISCHARGE September 1:35pm BACK PAIN October 23, 2024 5:20p m BACK PAIN November 27, 2024 5:21p m Reason for Visit Admit Date Segmental and somatic dysfunction of cer vical region August 07, 2024 5:23pm Segmental and somatic dysfunction of lum bar region August 07, 2024 5:23pm Segmental and somatic dysfunction of pel brittney region August 07, 2024 5:23pm Segmental and somatic dysfunction of tho racic region August 07, 2024 5:23pm Spondylolisthesis at L5-S1 level July 262024 5:23pm Segmental and somatic dysfunction of cer vical region September 25, 2024 5:18pm Segmental and somatic dysfunction of lum bar region September 25, 2024 5:18pm Segmental and somatic dysfunction of pel brittney region September 25, 2024 5:18pm Segmental and somatic dysfunction of tho racic region September 25, 2024 5:18pm Spondylolisthesis at L5-S1 level September 5:18pm Back pain September 25, 2024 5:18pm Segmental and somatic dysfunction of cer vical region October 23, 2024 5:20pm Segmental and somatic dysfunction of lum bar region October 23, 2024 5:20pm Segmental and somatic dysfunction of pel brittney region October 23, 2024 5:20pm Segmental and somatic dysfunction of tho racic region October 23, 2024 5:20pm Spondylolisthesis at L5-S1 level September 5:20pm Lumbosacral radiculopathy November 27, 2024 5:21pm Segmental and somatic dysfunction of cer vical region November 27, 2024 5:21pm Segmental and somatic dysfunction of lum bar region November 27, 2024 5:21pm Segmental and somatic dysfunction of pel brittney region November 27, 2024 5:21pm Segmental and somatic dysfunction of tho racic region November 27, 2024 5:21pm Spondylolisthesis at L5-S1 level November 5:21pm Back pain November 27, 2024 5:21p m Chief Complaint Admit Date BACK PAIN September 25, 2024 5:18pm LT BREAST BLOODY NIPPLE DISCHARGE September 1:35pm BACK PAIN October 23, 2024 5:20p m BACK PAIN November 27, 2024 5:21p m BACK PAIN December 25, 2024 5:30 pm Reason for Visit Admit Date Segmental and somatic dysfunction of cer vical region September 25, 2024 5:18pm Segmental and somatic dysfunction of lum bar region September 25, 2024 5:18pm Segmental and somatic dysfunction of pel brittney region September 25, 2024 5:18pm Segmental and somatic dysfunction of tho racic region September 25, 2024 5:18pm Spondylolisthesis at L5-S1 level September 5:18pm Back pain September 25, 2024 5:18pm Segmental and somatic dysfunction of cer vical region October 23, 2024 5:20pm Segmental and somatic dysfunction of lum bar region October 23, 2024 5:20pm Segmental and somatic dysfunction of pel brittney region October 23, 2024 5:20pm Segmental and somatic dysfunction of tho racic region October 23, 2024 5:20pm Spondylolisthesis at L5-S1 level September 5:20pm Lumbosacral radiculopathy November 27, 2024 5:21pm Segmental and somatic dysfunction of cer vical region November 27, 2024 5:21pm Segmental and somatic dysfunction of lum bar region November 27, 2024 5:21pm Segmental and somatic dysfunction of pel brittney region November 27, 2024 5:21pm Segmental and somatic dysfunction of tho racic region November 27, 2024 5:21pm Lumbosacral radiculopathy December 25 5:30pm Segmental and somatic dysfunction of cer vical region December 25, 2024 5:30pm Segmental and somatic dysfunction of lum bar region December 25, 2024 5:30pm Segmental and somatic dysfunction of pel brittney region December 25, 2024 5:30pm Segmental and somatic dysfunction of tho racic region December 25, 2024 5:30pm Spondylolisthesis at L5-S1 level December 252024 5:30pm Back pain December 25, 2024 5:30 pm Chief Complaint Admit Date BACK PAIN November 27, 2024 5:21p m BACK PAIN December 25, 2024 5:30 pm BACK PAIN February 19, 2025 5:22pm Reason for Visit Admit Date Lumbosacral radiculopathy November 27, 2024 5:21pm Segmental and somatic dysfunction of cer vical region November 27, 2024 5:21pm Segmental and somatic dysfunction of lum bar region November 27, 2024 5:21pm Segmental and somatic dysfunction of pel brittney region November 27, 2024 5:21pm Segmental and somatic dysfunction of tho racic region November 27, 2024 5:21pm Lumbosacral radiculopathy December 25 5:30pm Segmental and somatic dysfunction of cer vical region December 25, 2024 5:30pm Segmental and somatic dysfunction of lum bar region December 25, 2024 5:30pm Segmental and somatic dysfunction of pel brittney region December 25, 2024 5:30pm Segmental and somatic dysfunction of tho racic region December 25, 2024 5:30pm Segmental and somatic dysfunction of cer vical region February 19, 2025 5:22pm Segmental and somatic dysfunction of lum bar region February 19, 2025 5:22pm Segmental and somatic dysfunction of pel brittney region February 19, 2025 5:22pm Segmental and somatic dysfunction of tho racic region February 19, 2025 5:22pm Chief Complaint Admit Date BACK PAIN November 27, 2024 5:21p m BACK PAIN December 25, 2024 5:30 pm BACK PAIN February 19, 2025 5:22pm CYST ON SCALP February 27, 2025 3: 10pm Family History No Family History Records Found Relationship Condition Age at Onset Recorded Date/T elroy Not Specified Cardiac disease Unknown Hypertension Unknown Advance Directives No Advanced Directives Records Found Advance Directive Response Recorded Date/ Time Living Will No April 16 9:23am Power of Draw Bench Operator Helper No April 16, 2020 9:23am Advance Directive Response Recorded Date/ Time Living Will No November 20th, 2 020 8:23am Power of Draw Bench Operator Helper No April 16, 2020 8:23am Summary Purpose Additional Source Comments Care Teams (unrecognized sec tion and content) Team Status: Active Member Role Status Dates Dr. Salomón Perkins MD Primary Care Provider Active Team Status: Inactive Member Role Status Dates Dr. Salomón Perkins MD Primary Care Provider Active Start: August 07, 2024 End: August 07, 2024 Dr. Salomón Perkins MD Referring Provider Active Start: August 07, 2024 End: August 07, 2024 Dr. Kat Das DC Attending Provider Active S tart: August 07, 2024 End: August 07, 2024 Team Status: Inactive Member Role Status Dates Dr. Salomón Perkins MD Primary Care Provider Active Start: September 25, 2024 End: September 25, 2024 Dr. Salomón Perkins MD Referring Provider Active Start: September 25, 2024 End: September 25, 2024 Dr. Kat Das DC Attending Provider Active S tart: September 25, 2024 End: September 25, 2024 Team Status: Inactive Member Role Status Dates Dr. Salomón Perkins MD Primary Care Provider Active Start: September 29, 2024 End: September 29, 2024 Dr. Benita Wilson MD Attending Provider Active St art: September 29, 2024 End: September 29, 2024 Dr. Benita Wilson MD Referring Provider Active St art: September 29, 2024 End: September 29, 2024 Team Status: Inactive Member Role Status Dates Dr. Salomón Perkins MD Primary Care Provider Active Start: October 23, 2024 End: October 23, 2024 Dr. Salomón Perkins MD Referring Provider Active Start: October 23, 2024 End: October 23, 2024 Dr. Kat Das DC Attending Provider Active S tart: October 23, 2024 End: October 23, 2024 Team Status: Active Member Role Status Dates Dr. Salomón Perkins MD Family Provider Active Dr. Slaomón Perkins MD Primary Care Provider Active Team Status: Inactive Member Role Status Dates Dr. Salomón Perkins MD Primary Care Provider, Referring Provider Active Dr. Kat Das DC Attending Provider Active Team Status: Inactive Member Role Status Dates Dr. Salomón Perkins MD Primary Care Provider, Attending Provider Active Team Status: Inactive Member Role Status Dates Dr. Salomón Perkins MD Primary Care Provi live, Attending Provider, Referring Provider Active Team Status: Active Member Role Status Dates [facility] [place] Provider Active Start: June 04, 2024 Team Status: Active Member Role/Relationship Status Dates Dr. Salomón Perkins MD Primary Care Provider Active Team Status: Inactive Member Role/Relationship Status Dates Dr. Salomón Perkins MD Primary Care Provider Active Start: August 07, 2024 End: August 07, 2024 Dr. Salomón Perkins MD Referring Provider Active Start: August 07, 2024 End: August 07, 2024 Dr. Kat Das DC Attending Provider Active S tart: August 07, 2024 End: August 07, 2024 Team Status: Inactive Member Role/Relationship Status Dates Dr. Salomón Perkins MD Primary Care Provider Active Start: September 25, 2024 End: September 25, 2024 Dr. Salomón Perkins MD Referring Provider Active Start: September 25, 2024 End: September 25, 2024 Dr. Kat Das DC Attending Provider Active S tart: September 25, 2024 End: September 25, 2024 Team Status: Inactive Member Role/Relationship Status Dates Dr. Salomón Perkins MD Primary Care Provider Active Start: September 29, 2024 End: September 29, 2024 Dr. Benita Wilson MD Attending Provider Active St art: September 29, 2024 End: September 29, 2024 Dr. Benita Wilson MD Referring Provider Active St art: September 29, 2024 End: September 29, 2024 Team Status: Inactive Member Role/Relationship Status Dates Dr. Salomón Perkins MD Primary Care Provider Active Start: October 23, 2024 End: October 23, 2024 Dr. Salomón Perkins MD Referring Provider Active Start: October 23, 2024 End: October 23, 2024 Dr. Kat Das DC Attending Provider Active S tart: October 23, 2024 End: October 23, 2024 Team Status: Inactive Member Role/Relationship Status Dates Dr. Slaomón Perkins MD Primary Care Provider Active Start: November 27, 2024 End: November 27, 2024 Dr. Salomón Perkins MD Referring Provider Active Start: November 27, 2024 End: November 27, 2024 Dr. Kat Das DC Attending Provider Active S tart: November 27, 2024 End: November 27, 2024 Team Status: Inactive Member Role/Relationship Status Dates Dr. Salomón Perkins MD Primary Care Provider Active Start: September 25, 2024 End: September 25, 2024 Dr. Salomón Perkins MD Referring Provider Active Start: September 25, 2024 End: September 25, 2024 Dr. aKt Das DC Attending Provider Active S tart: September 25, 2024 End: September 25, 2024 Team Status: Inactive Member Role/Relationship Status Dates Dr. Salomón Perkins MD Primary Care Provider Active Start: September 29, 2024 End: September 29, 2024 Dr. Benita Wilson MD Attending Provider Active St art: September 29, 2024 End: September 29, 2024 Dr. Benita Wilson MD Referring Provider Active St art: September 29, 2024 End: September 29, 2024 Team Status: Inactive Member Role/Relationship Status Dates Dr. Salomón Perkins MD Primary Care Provider Active Start: October 23, 2024 End: October 23, 2024 Dr. Salomón Perkins MD Referring Provider Active Start: October 23, 2024 End: October 23, 2024 Dr. Kat Das DC Attending Provider Active S tart: October 23, 2024 End: October 23, 2024 Team Status: Inactive Member Role/Relationship Status Dates Dr. Salomón Perkins MD Primary Care Provider Active Start: November 25, 2024 Dr. Leona Maher MD Attending Provider Active Start: November 25, 2024 Team Status: Inactive Member Role/Relationship Status Dates Dr. Salomón Perkins MD Primary Care Provider Active Start: December 25, 2024 End: December 25, 2024 Dr. Salomón Perkins MD Referring Provider Active Start: December 25, 2024 End: December 25, 2024 Dr. Kat Das DC Attending Provider Active S tart: December 25, 2024 End: December 25, 2024 Team Status: Active Member Role/Relationship Status Dates Dr. Salomón Perkins MD Primary care physician Active Team Status: Inactive Member Role/Relationship Status Dates Dr. Salomón Perkins MD Primary care physician Active Start: November 25, 2024 Dr. Leona Maher MD Attending physician Active Start: November 25, 2024 Team Status: Inactive Member Role/Relationship Status Dates Dr. Salomón Perkins MD Primary care physician Active Start: November 27, 2024 End: November 27, 2024 Dr. Salomón Perkins MD Referring Provider Active Start: November 27, 2024 End: November 27, 2024 Dr. Kat Das DC Attending physician Active Start: November 27, 2024 End: November 27, 2024 Team Status: Inactive Member Role/Relationship Status Dates Dr. Salomón Perkins MD Primary care physician Active Start: December 25, 2024 End: December 25, 2024 Dr. Salomón Perkins MD Referring Provider Active Start: December 25, 2024 End: December 25, 2024 Dr. Kat Das DC Attending physician Active Start: December 25, 2024 End: December 25, 2024 Team Status: Inactive Member Role/Relationship Status Dates Dr. Salomón Perkins MD Primary care physician Active Start: February 19, 2025 End: February 19, 2025 Dr. Salomón Perkins MD Referring Provider Active Start: February 19, 2025 End: February 19, 2025 Dr. Kat Das DC Attending physician Active Start: February 19, 2025 End: February 19, 2025 Team Status: Inactive Member Role/Relationship Status Dates Dr. Salomón Perkins MD Primary care physician Active Start: February 27, 2025 End: February 27, 2025 Dr. Salomón Perkins MD Referring Provider Active Start: February 27, 2025 End: February 27, 2025 Dr. Александр Montgomery MD Attending physician Active Start: February 27, 2025 End: February 27, 2025 INFORMATION SOURCE (unrecogn ized section and content) DATE CREATED AUTHOR 07/10/2023 [facility] DATE CREATED AUTHOR AUTHOR'S ORGANIZ ATION 03/09/2024 [facility] DATE CREATED AUTHOR AUTHOR'S ORGANIZ ATION [facility]/14[facility]20[facility] DATE CREATED AUTHOR AUTHOR'S ORGANIZ ATION 03/06/2025 [facility] Reason for Visit (unrecogniz ed section and content) Reason Comments New Patient Annual Exam Reason Comments Breast Pain Nipple discharge (Br own ) bloody FOR RECORDS PERTAINING TO PATIENTS WHO ARE OR HAVE BEEN ENROLLED IN A CHEMICAL DEPENDENCY/SUBSTANCEABUSE PROGRAM, SOME INFORMATION MAY BE OMITTED. This clinical summary was aggregated from multiple sources. Caution should be exercised in using it in the provision of clinical care. This summary normalizes information from multiple sources, and as a consequence, information in this document may materially change the coding, format and clinical context of patient data. In addition, data may be omitted in some cases. CLINICAL DECISIONS SHOULD BE BASED ON THE PRIMARY CLINICAL RECORDS. [facility] provides no warranty or guarantee of the accuracy or completeness of information in this document.
== END | disposition home or self-care (01) ==
LOC: US 17:00
PROVIDERS: PCP Family Medicine Geriatric Medicine; Referring Provider Surgery Plastic and Reconstructive Surgery; Visit Provider Surgery Plastic and Reconstructive Surgery
DX: R22.0 Localized swelling, mass and lump, head (principal)
CPT/HCPCS: 76882

== ENCOUNTER → 2025-04-16 | Outpatient (CLI) | payer OTHER, SELFPAY ==
--- OUTSIDE RECORDS SUMMARY | 2025-04-16 23:01 | XMS RPT_ITS | CCD ---
Author Organization [facility] CliniSyvt Care Team Providers Care Inorganic Chemistry Teacher Name Role Phone Dr. Salomón Perkins Chi Primary Care Provider Dr. Salomón Perkins Chi Referring Provider Dr. Kat Das Attending Provider [phone] Primary Care Provider NEGAR Crawford Primary Care Unavailable REFERRED, SELF Referring Unavailable JASSON PEREA Attending Unavailable FABY DELATORRE Attending Unavailable FABY DELATORRE Referring Unavailable Unavailable Primary Care Provider UnavailBENITA Drew Attending [facility], Employee Attending Provider Gregorio GONZALEZ, Dr. Salomón Trevino Primary Care Provider [phone] Gregorio GONZALEZ, Dr. Salomón Trevino Referring Provider Dossi DC, Dr. Stephens Attending Provider [phone] Dr[address] Benita Wilson MD Attending Provider Katie GONZALEZ, Dr. Joy Referring Provider Gregorio GONZALEZ, Dr. Salomón Trevino Primary Care Provider Gregorio GONZALEZ, Dr. Salomón Trevino Referring Provider Dossi DC, Dr. Stephens Attending Provider [phone] Nika GONZALEZ, Dr. Delgadillo Attending Provider Gregorio GONZALEZ, Dr. Salomón Trevino Primary Care Physician Nika GONZALEZ, Dr. Delgadillo Attending Physician Gregorio GONZALEZ, Dr. Salomón Trevino Referring Provider Dossi DC, Dr. Stephens Attending Physician [phone] Valentina GONZALEZ, Dr. Fountain Attending Physician [phone] KATIE, BENITA Attending Unavailable KATIE, BENITA Attending Unavailable Gregorio, Salomón Chi Primary Care Unavailable Assessment, Health Risk Referring Unavaila ble Assessment, Health Risk Attending Unavaila ble Gregorio, Salomón Chi Primary Care Unavailable Siska, Александр Referring Unavailable Siska, Александр Attending Unavailable Gregorio, Salomón Chi Primary Care Unavailable Katie, Benita Referring Unavailable Katie, Benita Attending Unavailable Gregorio, Salomón Chi Primary [...] Attending Unavailable Gregorio, Salomón Chi Referring Unavailable Siska, Александр Attending Unavailable Gregorio, Salomón Chi Primary Care Unavailable Gregorio, Salomón Chi Referring Unavailable Dossi, Kat Attending Unavailable Gregorio, Salomón Chi Primary Care Unavailable Gregorio, Salomón Chi Referring Unavailable Gregorio, Salomón Chi Primary Care Unavailable Gregorio, Salomón Chi Referring Unavailable Dossi, Kat Attending Unavailable Gregorio, Salomón Chi Primary Care Unavailable Gregorio, Salomón Chi Referring Unavailable Dossi, Kat Attending Unavailable Gregorio, Salomón Chi Primary Care Unavailable Gregorio, Salomón Chi Referring Unavailable Dossi, Kat Attending Unavailable Dossi, Kat Attending Unavailable Gregorio, Salomón Chi Primary Care Unavailable Gregorio, Salomón Chi Referring Unavailable Gregorio, Salomón Chi Primary Care Unavailable Gregorio, Salomón Chi Referring Unavailable Dossi, Kat Attending Unavailable Siska, Александр Attending Unavailable Gregorio, Salomón Chi Primary Care Unavailable Allergies Allergy Classification Reported Allergen(s) Allergy Type Date of Onset Reaction(s) Facility (3 sources) Citalopram Drug Allergy 02-28-2024 [facility] Medications Current Medications Medication Drug Class(es) Dates Sig (Normalized) Sig (Original) clobetasol propionate 0.5 mg/ml topical cream (3 sources) Corticosteroid Start: 07-24-2023 clobetasol (Temovate) 0.05 % cream APPLY TO AFFECTED AREA EXTERNALLY TWICE A DAY 07/24/2023 Active famotidine 40 mg oral tablet (3 sources) Histamine-2 Receptor Antagonist Start: 12-09-2023 take 1 tablet by mouth twice daily famotidine (Pepcid) 40 MG tablet Take 40 mg by mouth 2 times daily. 12/09/2023 Active FLUoxetine 60 mg oral tablet (15 sources) Serotonin Reuptake Inhibitor Start: 02-19-2025 take 1 tablet by mouth once daily [...] Active hydrOXYzine hydrochloride 50 mg oral tablet (3 sources) Antihistamine Start: 07-24-2023 take 1 tablet by mouth every six hours hydrOXYzine HCl (Atarax) 50 MG tablet Take 50 mg by mouth in the morning and 50 mg at noon and 50 mg in the evening and 50 mg before bedtime. 07/24/2023 Active pantoprazole 40 mg delayed release oral tablet (13 sources) Proton Pump Inhibitor Start: 01-26-2021 take 1 tablet by mouth once daily pantoprazole (ProtoNix) 40 MG EC tablet Take 40 mg by mouth daily. 07/24/2023 Active Completed/Discontinued Medications Medication Drug Class(es) Dates Sig (Normalized) Sig (Original) 12 hr buPROPion hydrochloride 150 mg extended release oral tablet (13 sources) Aminoketone Start: 01-26-2021 End: 02-19-2025 take [...] Translations: [Spondylolisthesis, lumbosacral region] 05-13-2020 Episodic Other bone disease and musculoskeletal deformities [...] complicating , unspecified trimester] 08-08-2013 Chronic Other screening for suspected conditions (not mental disorders or infectious disease) (4 sources) Cancer cervix screening status; Translations: [Encounter for screening for malignant neoplasm of cervix] Onset: 4 02-27-2024 Episodic Other skin disorders (1 source) Localized swelling, mass and lump, head; Translations: [...] [Nipple discharge] Onset: 09-11-2024 09-11-2024 Episodic Other acquired deformities (11 sources) Spondylolisthesis, lumbosacral region; Translations: [Spondylolisthesis] Onset: 12-25-2024 Episodic Results Test Name Value Interpretation Reference Range Facility Chiropractic Reporton 2024 Chiropractic Report [facility] Chiropractic [address] [place] [address] OFFICE VISIT Date of Service: 03/26/25 MR#: [id number] Acct: [id number] Name: ANNELISE BOURGEOIS Rep #: [id number] : 1985 Provider: ROSY Humphreys Age/Sex: 39/F Location: [facility] Status: Signed Intake Vital Signs 07/31/24 17:27 03/19/25 09:59 Height 5 ft 2 in 5 ft 2 in Intake Visit Reasons: Back pain Chief Complaint: Low back pain and right sciatica Commissions Manager Required: No Accompanied by: Daughter Is patient in pain?: Yes Pain scale (1-10): 5 Allergies No Known Allergies Allergy (Verified 03/26/25 17:43) Medications ???Medication ???Instructions ???Recorded ???Confirmed ???Type pantoprazole 40 mg tablet,delayed 40 mg PO DAILY 01/26/21 03/26/25 History release fluoxetine 60 mg tablet 60 mg PO QDAY 02/19/25 03/26/25 Hi story PFSH Surgical History History of wisdom tooth extraction History of tonsillectomy and adenoidectomy Family History Other Heart disease Hypertension Social History Smoking Status: Former smoker quit date: 02/26/24 how long ago did patient quit smokin year ago quit alcohol intake: current alcohol intake frequency: holidays/special occasions only substance use type: does not use what type of physical activity do you participate in: none HPI Back pain Chief Complaint: Neck/mid, LBP Visit Number: 8 Details: Annelise is a 39 y/o female here to follow up on neck, low and mid back pain. Low back pain that is aching or sharp and right sciatica continues. Rates pain 5/10 today. She states her pain increases with bending and prolonged standing and her legs feel like they are weak and going to give out. Denies neck and upper back pain. Denies frequent headaches. She continues to work a third shift [...] C6, Lumbar L2, Thoracic T4 and Pelvis LIL Manipulation: 3-4 regions Traction, Mechanical: Yes Patient [...] radiculopathy: Status: Acute Orders: Orders Chiropractic Treatments 03/26/25 M99.01 - Segmental and somatic dysfunction of [...] of thoracic region M99.02 Lumbosacral radiculopathy M54.17 CPT Codes Procedures - Manipulation: 3-4 regions (54879) (more content not included)... Normal [facility] Office Visiton 03-19-2025 Follow-up visit [id number] Annelise Bourgeois 1985 F Date Provider Department Center 03/19/2025 71704-CLAVBENITA RANGEL [facility] Family History Family Status - Relation Status Age at Father Mother Alive Level of Service:67729 [place] PERIODIC PREVENTIVE MED EST PATIENT 40-64YRS Reason for Visit and Comments: Annual Exam [83] Normal [facility] Plastic Surgery Visit Report on 03-19-2025 Plastic Surgery Visit Report [facility] Plastic Reconstructive Surgery [address], [address] [place] [address] OFFICE VISIT Date of Service: 03/19/25 MR#: [id number] Acct: [id number] Name: ANNELISE BOURGEOIS Rep #: [id number] : 1985 Provider: Dr. Александр Montgomery MD Age/Sex: 39/F Location: [facility] Status: Signed Intake Vital Signs 3 02/27/25 15:58 03/19/25 09:59 Height 5 ft 2 in 5 ft 2 in Weight: 231 lb BMI 42.2 BP 115/77 Blood Pressure Location Lt brachial Position Sitting Respiration 18 Pulse 71 Temp 97.5 F L Temp Source Temporal Pulse Oximetry (%) 97 Oxygen Delivery Method room air Intake Visit Reasons: US Results Chief Complaint: cyst on scalp Allergies No Known Allergies Allergy (Verified 03/19/25 10:00) Medications 3 ???Medication ???Instructions ???Recorded ???Confirmed ???Type pantoprazole 40 mg tablet,delayed 40 mg PO DAILY 01/26/21 03/19/25 History release fluoxetine 60 mg tablet 60 mg PO QDAY 02/19/25 03/19/25 Hi story PFSH Surgical History History of wisdom tooth extraction History of tonsillectomy and adenoidectomy Family History Other Heart disease Hypertension Social History (Updated 03/19/25 @ 10:01 by Yoko Bains) Smoking Status: Former smoker quit date: 02/26/24 how long ago did patient quit smokin year ago quit alcohol intake: current alcohol intake frequency: holidays/special occasions only substance use type: does not use what type of physical activity do you participate in: none HPI US Results Details: The patient is a 39-year-old female [...] of the generated note prior to signature. Current encounter, 19 March 2025: Patient with 2 new cysts on the anterior scalp which were included in the ultrasound. She would like to discuss results of ultrasound today, which was suggestive of subcutaneous mobile lesions which they characterized as potential lymph nodes. 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 2 anterior scalp cysts appear to be Pilar cysts Coding Level of Care Code Off vis,est,level 2 Diagnoses Mass of scalp R22.0 Assessment and [...] is otherwise healthy, with no history of craniofacial trauma or congenital issues. The plan includes obtaining an ultrasound to further evaluate the mass and scheduling surgical removal in an operating room setting due to the vascular nature of the scalp and proximity to nerves. 1. Pilar Cyst The plan is to perform an ultrasound to evaluate the mass further and schedule surgical removal in an operating room due to the vascular nature of the scalp and proximity to nerves. The procedure will involve sedation and local anesthesia, with the use of maria del carmen to (more content not included)... Normal [facility] Progress Noteon 03-19-2025 Progress Note Annelisese Bourgeois 39 y.o. HPI: The patient was seen and examined today for her annual exam. Hx of ablation and Essure. Had blood nipple d/c earlier this year, mammo and US wnl. Still occurring but clear, no blood noted. No LMP recorded. Patient has had an ablation. Regular Periods: no, hx of ablation STD History: no, declines testing Control: Essure Family History of Breast, Ovarian , Colon or Uterine Cancer: breast cancer great aunt Preventative Health Testing: Date of Last Pap Smear: 2023 neg cotesting Abnormal Pap Smear History: no Colposcopy History: n/a Mammogram: done September 2024 2/2 nipple discharge, repeat yearly Colonoscopy per PCP OB History Para Term [...] weight loss, fatigue, fevers/chills : see HPI Objective: BP 114/72 Ht 5' 2 (1.575 m) Wt 231 lb (105 kg) BMI 42.25 kg/m? Physical Exam Gen: normal appearance, NAD [...] or tenderness bilaterally Assessment: Diagnosis Plan 1. Women's annual routine gynecological examination 2. Encounter for screening mammogram for malignant neoplasm of breast Bilateral screening mammogram with tomosynthesis Plan: Maintain yearly visits with WHOLESALE LOAN PROCESSOR for well-woman exam. Establish care with General PCP for routine health maintenance. -wants skin tags removed, will scheduled procedure Follow up in about 1 year (around 03/19/2026) for Annual. Orders Placed This Encounter Procedures Bilateral screening mammogram with tomosynthesis Standing Status: Future Expected Date: 03/19/2025 Expiration Date: 05/19/[address] [facility] Progress Note Structural Iron Worker was offere d to the patient for exam. Patient declined offer of public records researcher Normal [facility] Ext Non Vasc Limited/Soft Ti sson 03-12-2025 Ext Non Vasc Limited/Soft Tiss [facility] Imaging Services [address] [place], [place] [address] Ext Non Vasc Limited/Soft Tiss MR#: [id number] Acct: [id number] Name: ANNELISE BOURGEOIS Rep #: [id number] : 1985 F 39 From: Иван Mccoy MD PCP: Dr. Salomón Perkins MD Status: REG CLI Study: Ext Non Vasc Limited/Soft Tiss Date of Exam: 1 Exam# [id number] Ordering Dr: Александр Montgomery MD PROCEDURE: EXT NON VASC LIMITED/SOFT TISS 03/12/2025 REASON FOR EXAM: RIGHT POSTERIOR SCALP MASS TECHNIQUE: Procedure Code: [id number] Modality: US Procedure: EXT NON VASC LIMITED/SOFT TISS COMPARISON: None FINDINGS: Multiple lymph node like lesions identified measuring up to 1.4 cm in the right posterior scalp, 0.5 cm in the anterior right scalp, and 0.4 cm in the right anterior scalp. US/Ext Non Vasc Limited/Soft Tiss IMPRESSION: Probable lymph nodes as above. Reading Location: [facility] CC: Dr. Александр Montgomery MD; Dr. Salomón Perkins MD Mushroom Cutter: Signed [facility] Plastic Surgery Visit Report on 02-27-2025 Plastic Surgery Visit Report [facility] Plastic Reconstructive Surgery [address], [address] [place], [place] [address] OFFICE VISIT Date of Service: 02/27/25 MR#: [id number] Acct: [id number] Name: ANNELISE BOURGEOIS Rep #: [id number] : 1985 Provider: Dr. Александр Montgomery MD Age/Sex: 39/F Location: [facility] Status: Signed Intake Vital Signs 3 07/31/24 [...] mg PO QDAY 02/19/25 02/27/25 Hi story [facility] Surgical History History of wisdom tooth [...] of craniofa (more content not included)... Normal [facility] Chiropractic Reporton 2024 Chiropractic Report [facility] Chiropractic [facility] [place] [address] OFFICE VISIT Date of Service: 02/19/25 MR#: [id number] Acct: [id number] Name: ANNELISE BOURGEOIS Rep #: [id number] : 1985 Provider: ROSY Humphreys Age/Sex: 39/F Location: [facility] Status: Signed Intake Vital Signs 07/31/24 17:27 Height 5 ft 2 in Intake Visit Reasons: BACK PAIN, Back pain Chief Complaint: neck, upper and low back pain Commissions Manager Required: No Accompanied by: Self Is patient in pain?: Yes (low back, sciatic and hips) Pain scale (1-10): 8 Allergies No Known Allergies Allergy (Verified 02/19/25 17:29) Medications ???Medication ???Instructions ???Recorded ???Confirmed ???Type pantoprazole 40 mg tablet,delayed 40 mg PO DAILY 01/26/21 02/19/25 History release fluoxetine 60 mg tablet 60 mg PO QDAY 02/19/25 02/19/25 [facility] Surgical History History of wisdom tooth extraction [...] CPT Codes Procedures - Manipulation: 3-4 regions (22432) Procedures - Traction, Mechanical: Yes (84697) 02/23/25 0854 Date Kat Ibarra Signature: Date (more content not included)... Normal [facility] Chiropractic Reporton 2024 Chiropractic Report [facility] Chiropractic [facility] [place] [address] OFFICE VISIT Date of Service: 12/25/24 MR#: [id number] Acct: [id number] Name: ANNELISE BOURGEOIS Rep #: [id number] : 1985 Provider: ROSY Humphreys Age/Sex: 39/F Location: [facility] Status: Signed Intake Vital Signs 07/31/24 17:27 [...] care as needed. Consider updated xrays at [facility]. Plan Details Goals Barriers: Goals Decrease pain Decrease inflammation Improve ROM Improve workability Follow Up: PRN Coding Level of Care Code No Charge Diagnoses Segmental and somatic dysfunction of pelvic region M99.05 Segmental and somatic dysfunction of cervical region M99.01 Segmental and somatic dysfunction of lumbar region M99.03 Segme (more content not included)... Normal [facility] Chiropractic Reporton 2024 Chiropractic Report [facility] Chiropractic [address] [place] [address] OFFICE VISIT Date of Service: 11/27/24 MR#: [id number] Acct: [id number] Name: ANNELISE BOURGEOIS Rep #: [id number] : 1985 Provider: ROSY Humphreys Age/Sex: 39/F Location: [facility] Status: Signed Intake Vital Signs 07/31/24 [...] radiculopathy M54.17 (more content not included)... Normal [facility] Chiropractic Reporton 2024 Chiropractic Report [facility] Chiropractic [address] [place] [address] OFFICE VISIT Date of Service: 10/23/24 MR#: [id number] Acct: [id number] Name: CLARENCEANNELISE SMALLWOOD Rep #: [id number] : 1985 Provider: ROSY Humphreys Age/Sex: 38/F Location: [facility] Status: Signed Intake Vital Signs 07/31/24 17:27 [...] M99.02 Spondylolisthesis (more content not included)... Normal [facility] Breast Limited Unilateralon 09-29-2024 Breast Limited Unilateral [facility] Imaging Services [address] [place], [place] [address] Breast Limited Unilateral MR#: [id number] Acct: [id number] Name: ANNELISE BOURGEOIS Rep #: [id number] : 1985 F 38 From: Christine Donis PCP: Dr. Salomón Perkins MD Status: REG CLI Study: Breast Limited Unilateral Date of Exam: Exam# [id number] Ordering Dr: Benita Wilson MD PROCEDURE: BREAST [...] BENIGN. RECOMMEND ANNUAL MAMMOGRAPHIC SCREENING. Reading Location: [id number] CC: Dr. Benita Wilson MD; Dr. Salomón Perkins MD Mushroom Cutter: Signed Normal [facility] Breast imaging reportOrdered By: Christine Hampton on 09-29-2024 Study report [facility] Imaging Services [address] [place] [address] DIAG MAMM W/CAD, BILAT MR#: [id number] Acct: [id number] Name: ANNELISE BOURGEOIS Rep #: [id number] : 1985 F 38 From: Antonio Hampton DO PCP: Dr. Salomón ePrkins MD Status: REG Jay ROMAN Study:DIAG MAMM W/CAD, BILAT Date of Exam: 09/29/24 Exam# [id number] Ordering Dr: Emilia Wilson MD EXAM: DIAG [...] be mailed to the patient. Reading Location: [facility] CC: Dr. Benita Wilson MD; Dr. Salomón Perkins MD ~ Mushroom Cutter: Signed [facility] DIAG MAMM W/CAD, BILATon DIAG MAMM W/CAD, BILAT [facility] Imaging Services [address] [place], [place] [id number] DIAG MAMM W/CAD, BILAT MR#: [id number] Acct: [id number] Name: ANNELISE BOURGEOIS Rep #: [id number] : 1985 F 38 From: Christine Donis PCP: Dr. Salomón Perkins MD Status: REG CLI Study: DIAG MAMM W/CAD, BILAT Date of Exam: 09/29/24 Exam# [id number] Ordering Dr: Benita Wilson MD EXAM: DIAG [...] be mailed to the patient. Reading Location: [id number] CC: Dr. Benita Wilson MD; Dr. Salomón Perkins MD Mushroom Cutter: Signed Normal [facility] Chiropractic Reporton 2024 Chiropractic Report [facility] Chiropractic [address] [place] [address] OFFICE VISIT Date of Service: 09/25/24 MR#: [id number] Acct: [id number] Name: ANNELISE BOURGEOIS Rep #: [id number] : 1985 Provider: ROSY Humphreys Age/Sex: 38/F Location: [facility] Status: Signed Intake Vital Signs 07/31/24 [...] of pelv (more content not included)... Normal [facility] Office Visiton 09-11-2024 Follow-up visit [id number] Annelise Bourgeois 1985 F Date Provider Department Center 09/11/2024 BENITA ZAMORA [facility] Family History Family Status - Relation Status Age at Father Mother Alive Level of Service:37294 [place] OFFICE/OUTPATIENT ESTABLISHED LOW MDM 20 MIN Reason for Visit and Comments: Breast Pain [270030] - Nipple discharge (Brown ) bloody Normal [facility] Progress Noteon 09-11-2024 Progress Note HPI: Here [...] blood from nipple -planning to do at [place] since she works there; will let us know if she has trouble getting scheduled in timely manner On this date, 09/11/24 I have spent 20 minutes reviewing previous notes, test results and face to face with the patient discussing the diagnosis and importance of compliance with the treatment plan as well as documenting on the day of the visit. Normal [facility] Chiropractic Reporton 2024 Chiropractic Report [facility] Chiropractic [address] [place] [address] OFFICE VISIT Date of Service: 08/07/24 MR#: [id number] Acct: [id number] Name: ANNELISE BOURGEOIS Rep #: [id number] : 1985 Provider: ROSY Humphreys Age/Sex: 38/F Location: [facility] Status: Signed Intake Vital Signs 12/27/23 [...] M99.02 Spon (more content not included)... Normal [facility] Chiropractic Reporton 2024 Chiropractic Report [facility] Chiropractic [address] [place], [place] [id number] OFFICE VISIT Date of Service: 05/29/24 MR#: [id number] Acct: [id number] Name: ANNELISE BOURGEOIS Rep #: [id number] : 1985 Provider: ROSY Humphreys Age/Sex: 38/F Location: [facility] Status: Signed Intake Vital Signs 12/27/23 [...] mg PO DAILY 01/26/21 05/29/24 History release PFSH Surgical History History of [...] somatic dysfunction (more content not included)... Normal [facility] Chiropractic Reporton 2023 Chiropractic Report [facility] Chiropractic [address] [place] [address] OFFICE VISIT Date of Service: 05/01/24 MR#: [id number] Acct: [id number] Name: ANNELISE BOURGEOIS Rep #: [id number] : 1985 Provider: ROSY Humphreys Age/Sex: 38/F Location: [facility] Status: Signed Intake Vital Signs 12/27/23 17:01 [...] level: Status: Chronic Orders: Orders Chiropractic Treatments 12/05/24 M43.17 - Spondylolisthesis, lumbosacral region, M99.01 - [...] CPT Codes Procedures - Manipulation: 3-4 regions (57241) 05/06/24 0908 Date Ka (more content not included)... Normal [facility] Office Visiton 02-28-2024 Follow-up visit [id number] Annelise Bourgeois 1985 F Date Provider Department Center 02/28/2024 06934-AKGEBENITA RANGEL [facility] Family History Family Status - Relation Status Age at Father Mother Alive Level of Service:07472 [place] INITIAL PREVENTIVE MEDICINE NEW PT AGE 18-39YRS Reason for Visit and Comments: New Patient [542] Annual Exam [83] Normal [facility] Progress Noteon 02-28-2024 Progress Note Annelise Bourgeois 38 y.o. HPI: The patient was [...] see HPI Objective: BP 114/72 Ht 5' 2 (1.575 m) Wt 240 lb (109 kg) [...] per week. 2. Maintain yearly visits with WHOLESALE LOAN PROCESSOR for well-woman exam. 3. Establish care with General PCP for routine health maintenance. Counseling Completed: 1. Reproductive Planning 2. Prevention of STD Follow up in about 1 year (around 02/27/2025) for Annual. No orders of the defined types were placed in this encounter. Normal [facility] Quantiferon TB Goldon 2023 Mitogen minus NIL >9.80 Normal [facility] Comment on above: Performed By: #### Q [facility] #### [place] [address] Quantiferon TB Gold Negative Normal Negative [facility] Comment on above: Result Comment: Inte [...] M. szulgai, or M. marinum). Testing Performed: [place] [address] Performed By: #### Q [facility] #### [place] [address] TB1 minus NIL -0.12 IU/mL Normal -0.50-0.34 [facility] [facility] Comment on above: Performed By: #### Q UTBG #### [place] [address] TB2 minus NIL -0.10 IU/mL Normal -0.50-0.34 [facility] Comment on above: Performed By: #### Q UTBG #### [place] [address] Mumps IgG Abon 05-26-2023 Mumps IgG Abs Positive Normal [facility] Comment on above: Result Comment: Resu lts suggest response to immunization or prior exposure to the virus. REFERENCE VALUE Vaccinated: Positive (>=1.1 AI) Unvaccinated: Negative (<=0.8 AI) Performed By: #### M UMPG #### [address] [address] Mumps IgG Index Value 1.2 Normal [facility] Comment on above: Result Comment: Test Performed by: [place] [address] Elevating Grader Operator: Alcides Taylor M.D. Ph.D.; CLIA# [id number] Performed By: #### M UMPG #### [address] [address] Rubella IgG Abon 05-26-2023 Rubella IgG Ab Equivocal Normal [facility] Comment on above: Result Comment: Kristian mmend follow-up testing in 10-14 days if clinically indicated. REFERENCE VALUE Vaccinated: Positive (>=1.0 AI) Unvaccinated: Negative (<=0.7 AI) Performed By: #### R UBLG #### [address] [id number] Rubella IgG Index 0.9 Normal [facility] Comment on above: Result Comment: Test Performed by: [place] [address] Elevating Grader Operator: Alcides Taylor M.D. Ph.D.; CLIA# [id number] Performed By: #### R UBLG #### [address] [address] Rubeola IgG Abon 05-26-2023 Rubeola IgG Ab Negative Normal [facility] Comment on above: Result Comment: REFERENCE VALUE Vaccinated: Positive (>=1.1 AI) Unvaccinated: Negative (<=0.8 AI) Performed By: #### M ESGG #### [address] [id number] Rubeola IgG Ab, Index 0.2 Normal [facility] Comment on above: Result Comment: Test Performed by: [facility] [address] [place] [address] Elevating Grader Operator: Alcides Taylor M.D. Ph.D.; CLIA# [id number] Performed By: #### M ESGG #### [address] [address] COVID-19 virus antigen assay Ordered By: Dr. Perkins on 07-12-2022 SARS-CoV-2 (COVID-19) Ag IA.rapid Ql (Resp) Not detected Not Detect [facility] Comment on above: Normal Reference Ran ge: [...] 07-12-2022 Influenza Types A,B Direct FA (GEORGINA) [facility] RSV Ag EIAOrdered By: Dr. Yoana pugh on 07-12-2022 RSV Ag Immune stain Ql (Tiss) [facility] Laboratory - Microbiology an d Antimicrobial susceptibilityOrdered By: Dr. Perkins on 05-24-2022 SARS-CoV-2 (COVID-19) RNA XIOMARA+probe Ql (Unsp spec) Not detected Not Detect [facility] Comment on above: Normal Reference Ran ge: [...] 05-24-2022 Influenza Types A,B Direct FA (GEORGINA) [facility] RSV Ag EIAOrdered By: Dr. Yoana pugh on 05-24-2022 RSV Ag Immune stain Ql (Tiss) [facility] - Microbiology an d Antimicrobial susceptibilityon 05-24-2021 SARS-CoV-2 (COVID-19) RNA XIOMARA+probe Ql (Unsp spec) Not detected Not Detect [facility] Work Phone: Comment on above: Normal Reference [...] Informationon 05-24 Influenza Types A,B Direct FA ([facility]) [facility] Work Phone: No Panel Information Influenza Types A,B Direct FA ([facility]) [facility] Work Phone: RSV Ag EIA RSV Ag Immune stain Ql (Tiss) [facility] Work Phone: Vital Signs Date Time Vital Sign Value Performing Clinician Faci lity 03-19-2025 13:13-0400 Body height 157.5 cm Benita Wilson MD Work Phone: [facility] 03-19-2025 13:13-0400 Body mass index (BMI) [Ratio] 42.25 kg/m2 Benita Wilson MD Work Phone: [facility] 03-19-2025 13:13-0400 Body weight 104.78 kg Benita Wilson MD Work Phone: [facility] 03-19-2025 13:13-0400 Diastolic blood pressure 72 mm[Hg] Benita Wilson MD Work Phone: [facility] 03-19-2025 13:13-0400 Systolic blood pressure 114 mm[Hg] Benita Wilson MD Work Phone: [facility] 09-11-2024 14:33-0400 Body height 157.5 cm Benita Wilson MD Work Phone: [facility] 09-11-2024 14:33-0400 Body mass index (BMI) [Ratio] 43.9 kg/m2 Benita Wilson MD Work Phone: [facility] 09-11-2024 14:33-0400 Body weight 108.86 kg Benita Wilson MD Work Phone: [facility] 09-11-2024 14:33-0400 Diastolic blood pressure 78 mm[Hg] Benita Wilson MD Work Phone: [facility] 09-11-2024 14:33-0400 Systolic blood pressure 124 mm[Hg] Benita Wilson MD Work Phone: [facility] 07-31-2024 17:27-0500 Body height 157.[address] Salomón Perkins MD Work Phone: [facility] 02-28-2024 14:05-0400 Body height 157.5 cm Bentia Wilson MD Work Phone: [facility] 02-28-2024 14:05-0400 Body mass index (BMI) [Ratio] 43.9 kg/m2 Benita Wilson MD Work Phone: [facility] 02-28-2024 14:05-0400 Body weight 108.86 kg Benita Wilson MD Work Phone: [facility] 02-28-2024 14:05-0400 Diastolic blood pressure 72 mm[Hg] Benita Wilson MD Work Phone: [facility] 02-28-2024 14:05-0400 Systolic blood pressure 114 mm[Hg] Benita Wilson MD Work Phone: [facility] 02-02-2022 17:48-0400 Body height 157.[address] Salomón Perkins Work Phone: [facility] Work Phone: 02-02-2022 17:48-0400 Body mass index (BMI) [Ratio] 41.3 kg/m2 Dr. Salomón Perkins Work Phone: [facility] Work Phone: 02-02-2022 17:48-0400 Body weight 102.[address] Salomón Perkins Work Phone: [facility] Work Phone: Encounters Encounter Date Encounter Type Care Provider Facility Start: 04-09-2025 End: 04-09-2025 ambulatory Kat Dossi Facility:[facility] Start: 03-26-2025 End: 03-26-2025 ambulatory Kat Dossi Facility:[facility] Start: 03-19-2025 End: 03-19-2025 Patient encounter procedure Benita Wilson MD Work Phone: [facility] Work Phone: Start: 03-19-2025 End: 03-19-2025 Periodic preventive med est patient 40-64yrs Benita Wilson MD Work Phone: [facility] Comment on above: Women's annual routi ne gynecological examination (Primary Dx); Encounter for screening mammogram for malignant neoplasm of breast Start: 03-19-2025 End: 03-19-2025 ambulatory [facility] Start: 03-19-2025 End: 03-19-2025 Encounter for gynecological examination (general) (routine) without abnormal findings [facility] Start: 03-19-2025 End: 03-19-2025 ambulatory Александр Montgomery Facility:[facility] Start: 03-12-2025 End: 03-12-2025 ambulatory Salomón Perkins Facility:[facility] Start: 02-27-2025 End: 02-27-[address] Александр Montgomery MD -[facility] Work Phone: Start: 02-27-2025 End: 02-27-[address] Salomón Perkins MD Work Phone: [facility] Start: 02-19-2025 End: 02-19-[address] Kat Das DC -[facility] Work Phone: Start: 02-19-2025 End: 02-19-[address] Salomón Perkins MD Work Phone: [facility] Start: 01-22-2025 ambulatory Salomón Perkins Facility:[facility] Start: 12-25-2024 End: 12-25-[address] Kat Das DC -[facility] Work Phone: Start: 12-25-2024 End: 12-25-[address] Saloómn Perkins MD Work Phone: -[facility] Start: 11-27-2024 End: 11-27-[address] Kat Das DC -[facility] Work Phone: Start: 11-27-2024 End: 11-27-[address] Salomón Perkins MD Work Phone: -[facility] Start: 11-25-2024 Non-patient / Non-visit Dr. Kieran Maher MD -[facility] Work Phone: Start: 10-23-2024 End: 10-23-[address] Kat Das DC -[facility] Work Phone: Start: 10-23-2024 End: 10-23-[address] Salomón Perkins MD Work Phone: [facility] Work Phone: Start: 09-29-2024 End: 09-29-[address] Salomón Perkins MD Work Phone: [facility] Work Phone: Start: 09-29-2024 End: 09-29-[address] Benita Wilson MD -[facility] Work Phone: Start: 09-29-2024 End: 09-29-2024 ambulatory Salomón Chi Gregorio Facility:[facility] Start: 09-25-2024 End: 09-25-[address] Kat Das DC -[facility] Work Phone: Start: 09-25-2024 End: 09-25-2024 ambulatory Salomón Uriel Leesok Facility:[facility] Start: 09-11-2024 End: 09-11-2024 Office outpatient visit 15 minutes Benita Wilson MD Work Phone: [facility] [place] Comment on above: Bloody discharge fro m left nipple (Primary Dx) Start: 09-11-2024 End: 09-11-2024 ambulatory BENITA WILSON [facility] Start: 08-07-2024 End: 08-07-[address] Kat Das DC -[facility] Work Phone: Start: 08-07-2024 End: 08-07-2024 ambulatory Salomón Chi Gregorio Facility:[facility] Start: 06-04-2024 Registered [employer] [facility] Start: 06-03-2024 ambulatory Salomón Chi Gregorio Facility:[facility] Start: 05-29-2024 End: 05-29-2024 ambulatory Salomón Chi Gregorio Facility:[facility] Start: 05-01-2024 End: 05-01-2024 ambulatory Salomón Chi Gregorio Facility:[facility] Start: 02-28-2024 End: 02-28-2024 Initial preventive medicine new pt age 18-39yrs Benita Wilson MD Work Phone: [facility] Comment on above: Well woman exam with routine gynecological exam; Screening for cervical cancer Start: 02-28-2024 End: 02-28-2024 Patient encounter procedure Benita Wilson MD Work Phone: [facility] Start: 02-28-2024 End: 02-28-2024 ambulatory [facility] Start: 02-28-2024 End: 02-28-2024 Encounter for gynecological examination (general) (routine) without abnormal findings [facility] Start: 07-06-2023 ambulatory [facility] Start: 05-25-2023 End: 05-26-2023 ambulatory [facility] [facility] Start: 05-25-2023 End: 05-25-2023 Subsequent hospital visit by physician Faby Delatorre [facility] Work Phone: [facility] Comment on above: Arrived Start: 09-28-2022 End: 09-28-[address] Salomón Perkins Work Phone: [facility] Work Phone: Start: 09-28-2022 End: 09-28-[address] Salomón Perkins Work Phone: [facility]-Radiology, [facility] Start: 09-14-2022 End: 09-14-[address] Salomón Perkins Work Phone: [facility] Start: 08-03-2022 End: 08-03-[address] Salomón Perkins Work Phone: [facility] Start: 07-12-2022 End: 07-12-[address] Salomón Perkins Work Phone: [facility] Work Phone: Start: 07-12-2022 End: 07-12-[address] [facility] Start: 07-06-2022 End: 07-06-[address] Salomón Perkins Work Phone: [facility] Start: 06-08-2022 End: 06-08-[address] Salomón Perkins Work Phone: [facility] Start: 05-24-2022 End: 05-24-[address] Salomón Perkins Work Phone: [facility] Work Phone: Start: 05-24-2022 End: 05-24-[address] [facility] Start: 05-11-2022 End: 05-11-[address] Salomón Perkins Work Phone: [facility] Start: 04-06-2022 End: 04-06-[address] Salomón Perkins Work Phone: [facility] Start: 02-02-2022 End: 02-02-[address] Salomón Perkins Work Phone: [facility] Start: 08-25-2021 End: 08-25-2021 Patient encounter procedure [facility]-Laboratory, Specimen Start: 05-24-2021 Patient encounter procedure [facility]-Pulmonary Services/Neurology Procedures Date Procedure Procedure Detail Performing Clinician Start: 03-19-2025 Adult depression scr eening assessment Benita Wilson MD Work Phone: Start: 09-29-2024 End: 09-29-[address] Salomón Perkins MD Work Phone: Start: 09-29-2024 Ultrasonography [...] for Adults (1 - 1-dose 75+ series) [facility] Start: 2044 RSV Immunization age d 60 or older (1 - 1-dose 60+ series) RSV Immunization aged 60 or older (1 - 1-dose 60+ series) [facility] Start: 2034 Zoster Vaccines (1 o f 2) Zoster Vaccines (1 of 2) [facility] Start: 02-27-2029 Screening for malign ant neoplasm of cervix [facility] Start: 02-27-2027 Screening for malign ant neoplasm of cervix Pap Smear [facility] Start: 03-25-2026 End: 03-25-2026 Patient encounter procedure 03/25/2026 2:00 PM EDT Office Visit [facility] [place] [address] [place] [id number] Benita Wilson MD [address] [place] [address] [facility] Obstetrics [facility] Gynecology [facility] Start: 03-19-2026 Depression Screening Depression Scre ening [facility] Start: 09-29-2025 Screening for malign ant neoplasm of breast Mammogram [facility] Start: 04-17-2025 ambulatory Ambulatory Facility:[facility] Start: 03-19-2025 End: 05-19-2026 DBT Breast - bilateral screening Bilateral screening mammogram with tomosynthesis Imaging Routine Encounter for screening mammogram for malignant neoplasm of breast Expected: 03/19/2025, Expires: 05/19/2026 [facility] Work Phone: Comment on above: Expected: 03/19/2025 , Expires: 05/19/2026 Start: 03-19-2025 End: 03-19-2025 Patient encounter procedure 03/19/2025 2:00 PM EDT Office Visit [facility] [place] [address] [place] [address] Benita Wilson MD [address] [place] [address] [facility] Start: 01-26-2025 COVID-19 Vaccine ( season) COVID-19 Vaccine ( season) [facility] Start: 01-26-2025 Influenza vaccination [facility] Start: 09-11-2024 End: 11-11-2025 DBT Breast - bilateral diagnostic Bilateral diagnostic mammogram with tomosynthesis Imaging Routine Bloody discharge from left nipple Expected: 09/11/2024, Expires: 11/11/2025 [facility] Work Phone: Comment on above: Expected: 09/11/2024 , Expires: 11/11/2025 Start: 09-11-2024 End: 11-11-2025 US Breast - left limited Left breast US limited Imaging Routine Bloody discharge from left nipple Expected: 09/11/2024, Expires: 11/11/2025 [facility] Comment on above: Expected: 09/11/2024 , Expires: 11/11/2025 Start: 01-27-2024 COVID-19 Vaccine ( season) COVID-19 Vaccine ( season) [facility] Start: 01-27-2024 COVID-19 Vaccine ( season) COVID-19 Vaccine ( season) [facility] Start: 01-27-2024 Influenza vaccination Influenza Vacc ine (#1) [facility] Start: 01-26-2023 FLU (#1) FLU (#1) [facility] Start: 2014 Screening for malign ant neoplasm of cervix [facility] Start: 05-06-2009 MMR Vaccines (1 of 1 - Standard series) MMR Vaccines (1 of 1 - Standard series) [facility] Start: 05-06-2009 Varicella vaccination Varicell a Vaccines (1 of 2 - 13+ 2-dose series) [facility] Start: 2005 Microscopic observat ion [Identifier] in Cervix by Cyto stain Pap Smear [facility] Start: 2005 Screening for malign ant neoplasm of cervix Pap Smear [facility] Start: 11-04-2003 DTaP/Tdap/Td Vaccine s (1 - Tdap) DTaP/Tdap/Td Vaccines (1 - Tdap) [facility] Start: 11-04-2003 Hepatitis B Vaccines (1 of 3 - 19+ 3-dose series) Hepatitis B Vaccines (1 of 3 - 19+ 3-dose series) [facility] Start: 2002 Diabetes mellitus screening Diabetes Screening [facility] Start: 2002 Hepatitis C screening Hepatitis C Sc reening [facility] Start: 2000 MenB (1 of 2 - MenB 2-Dose Series Bexsero) MenB (1 of 2 - MenB 2-Dose Series Bexsero) [facility] Start: 1996 Depression Screening Depression Scre aliya [facility] Start: 11-04-1991 Tetanus Diphtheria a nd Pertussis Vaccines (1 - Tdap) Tetanus Diphtheria and Pertussis Vaccines (1 - Tdap) [facility] Start: 1985 MMR (1 of 1 - Standa rd series) MMR (1 of 1 - Standard series) [facility] Start: 1985 Varicella (1 of 2 - 2-dose childhood series) Varicella (1 of 2 - 2-dose childhood series) [facility] Start: 05-05-1985 COVID-19 (#1) COVID-19 (#1) [facility] Start: 1984 Hepatitis B (1 of 3 - 3-dose series) Hepatitis B (1 of 3 - 3-dose series) [facility] Start: 1984 HIV screening HIV Screening [facility] Cytology Cervical or vaginal smear or scraping study Pap Smear Pathology and Cytology Routine Well woman exam with routine gynecological exam Screening for cervical cancer Ordered: 02/28/2024 [facility] Work Phone: Comment on above: Ordered: 02/28/2024 End: 05-25-2023 Mumps IgG Ab Mumps IgG Ab Lab Routine For lab collect this frequency defaults to the next routine lab draw time. Routine times: 0600; 1100; 1400; 1900; 2200 for 1 Occurrences starting 05/25/2023 until 05/25/2023 [facility] Comment on above: For lab collect this frequency defaults to the next routine lab draw time. Routine times: 0600; 1100; 1400; 1900; 2200 for 1 Occurrences starting 05/25/2023 until 05/25/2023 Mumps IgG Ab Mumps IgG Ab Lab Routine 05/25/2023 8:39 AM EST [facility] End: 05-25-2023 Quantiferon TB Gold Quantiferon TB Gold Lab Routine For lab collect this frequency defaults to the next routine lab draw time. Routine times: 0600; 1100; 1400; 1900; 2200 for 1 Occurrences starting 05/25/2023 until 05/25/2023 [facility] Comment on above: For lab collect this frequency defaults to the next routine lab draw time. Routine times: 0600; 1100; 1400; 1900; 2200 for 1 Occurrences starting 05/25/2023 until 05/25/2023 Quantiferon TB Gold Quantiferon TB Gold Lab Routine 05/25/2023 8:39 AM [facility] End: 05-25-2023 Rubella IgG Ab Rubella IgG Ab Lab Routine For lab collect this frequency defaults to the next routine lab draw time. Routine times: 0600; 1100; 1400; 1900; 2200 for 1 Occurrences starting 05/25/2023 until 05/25/2023 [facility] Comment on above: For lab collect this frequency defaults to the next routine lab draw time. Routine times: 0600; 1100; 1400; 1900; 2200 for 1 Occurrences starting 05/25/2023 until 05/25/2023 Rubella IgG Ab Rubella IgG Ab L ab Routine 05/25/2023 8:39 AM [facility] End: 05-25-2023 Rubeola antibody IgG Rubeola antibody IgG Lab Routine For lab collect this frequency defaults to the next routine lab draw time. Routine times: 0600; 1100; 1400; 1900; 2200 for 1 Occurrences starting 05/25/2023 until 05/25/2023 [facility] Work Phone: Comment on above: For lab collect this frequency defaults to the next routine lab draw time. Routine times: 0600; 1100; 1400; 1900; 2200 for 1 Occurrences starting 05/25/2023 until 05/25/2023 Rubeola antibody IgG Rubeola ant ibody IgG Lab Routine 05/25/2023 8:32 AM [facility] Immunizations Immunization Date Immunization Notes Care Provider Fa rico 07-07-2024 Hepatitis B vaccine (recombinant), CpG adjuvanted Dr. Salomón Perkins MD Work Phone: [facility] 06-04-2024 Hepatitis B vaccine (recombinant), CpG adjuvanted Dr. Salomón Perkins MD Work Phone: [facility] 03-27-2024 influenza, injectabl e, quadrivalent, preservative free Dr. Salomón Perkins MD Work Phone: [facility] 03-27-2024 influenza virus vaccine, unspecified formulation Benita Wilson MD Work Phone: [facility] 05-25-2023 influenza virus vaccine, unspecified formulation Benita Wilson MD Work Phone: [facility] 03-17-2021 Covid (Moderna) Dr. Salomón Perkins MD Work Phone: [facility] 07-15-2020 Covid (Moderna) [facility] 06-17-2020 Covid (Moderna) [facility] Payers Date Payer Category Payer Unknown [id number] 2024 Self-pay [id number] 2023 Commercial Managed Care - HMO [id number] 2023 Unknown [id number] 2023 Unknown [id number] 15 2013 Unknown [id number] 1984 Unknown [id number] Unknown [id number] Unknown [id number] 2.16.8 [id number] Unknown [id number] 2.16.8 40.1.731853.3.579.2.462 Unknown [id number] 2.16.8 40.1.336643.3.579.2.462 Unknown [id number] 2.16.8 40.1.627117.3.579.2.462 Unknown [id number] 2.16.8 40.1.012113.3.579.2.462 Unknown [id number] 2.16.8 40.1.847112.3.579.2.462 Unknown [id number] 2.16.8 40.1.575620.3.579.2.462 Unknown [id number] 2.16.8 40.1.667457.3.579.2.462 Unknown [id number] 2.16.8 40.1.342044.3.579.2.462 Unknown [id number] 2.16.8 40.1.255906.3.579.2.462 Unknown [id number] 2.16.8 40.1.506247.3.579.2.462 Unknown [id number] 2.16.8 40.1.432974.3.579.2.462 Unknown [id number] 2.16.8 40.1.829031.3.579.2.462 Unknown [id number] 2.16.8 40.1.761791.3.579.2.462 Unknown [id number] 2.16.8 40.1.668008.3.579.2.462 Unknown [id number] 2.16.8 40.1.721523.3.579.2.462 Unknown [id number] 2.16.8 [id number] Social History Date Type Detail Facility Start: 03-17-2021 End: 09-14-2022 Tobacco smoking status ILIS Unknown if ever smoked [facility] Start: 11-14-2019 Cigarettes [facility] Start: 1985 Sex Assigned At Female [facility] Start: 1984 Sex Assigned At Not on file [facility] Start: 02-28-2024 End: 03-19-2025 Gender identity Not on file [facility] Start: 02-28-2024 [facility] Start: 02-28-2024 Tobacco use and exposure Smokeless tobacco non-user [facility] Start: 02-28-2024 End: 03-19-2025 Alcoholic beverage intake Current drinker of alcohol (finding) [facility] Start: 02-28-2024 End: 03-19-2025 History of Social function [facility] How often do you nee d to have someone help you when you read instructions, pamphlets, or other written material from your doctor or pharmacy [SILS] Never [facility] Has the [employer] or water [employer] threatened to shut off services in your home in past 12Mo No [facility] Are you now , , , , never or living with a partner? Never [facility] How often to you hav e a drink containing alcohol? Never [facility] Do you feel stress - tense, restless, nervous, or anxious, or unable to sleep at night because your mind is troubled all the time - these days [OSQ] To some extent [facility] (I/We) worried wheth er (my/our) food would run out before (I/we) got money to buy more. Never true [facility] Start: 05-25-2023 Sex Female (finding) [facility] Start: 07-31-2024 [facility] daily (finding) [facility] How hard is it for y ou to pay for the very basics like food, housing, medical care, and heating Not very hard [facility] Goals Date Patient Goal Desired Activity /State Functional Status Date Assessment Result Facility 03-19-2025 Total score [AUDIT-C] 0 03/19/20 9:38 AM EDT [facility]chart[facility] [facility] 03-19-2025 How often to you hav e a drink containing alcohol? Never 03/19/2025 9:38 AM EDT Elenit, Generic Never [facility] 03-19-2025 Functional status Patient does n ot drink 03/19/2025 9:38 AM EDT Mychart, Generic Patient does not drink [facility] 03-19-2025 How often do you hav e 6 or more drinks on 1 occasion? Never 03/19/2025 9:38 AM EDT Mychart, Generic Never [facility] 03-19-2025 Patient Health Quest ionnaire 2 item (PHQ-2) [Reported] [facility] 03-19-2025 Little interest or p mukesh in doing things Not at all 03/19/2025 9:38 AM EDT Mychart, Generic Not at all [facility] 03-19-2025 Feeling down, depres sed, or hopeless Not at all 03/19/2025 9:38 AM EDT Mychart, Generic Not at all [facility] Clinical Notes 02-28-2024 to 03-19-2025 Anh Summers MA - 03/19/2025 2:00 PM EDTBenita Wilson MD - 03/19/2025 2:00 PM EDT Note Date & Type Note Facility 03-19-2025 History of Presen t illness Narrative Structural Iron Worker was offered to the patient for exam. Patient declined offer of public records researcher Images from the original note were not included. Annelise Bourgeois 39 y.o. HPI: The patient was seen and examined today for her annual exam. Hx of ablation and Essure. Had blood nipple d/c earlier this year, mammo and US wnl. Still occurring but clear, no blood noted. No LMP recorded. Patient has had an ablation. Regular Periods: no, hx of ablation STD History: no, declines testing Control: Essure Family History of Breast, Ovarian , Colon or Uterine Cancer: breast cancer great aunt Preventative Health Testing: Date of Last Pap Smear: 2023 neg cotesting Abnormal Pap Smear History: no Colposcopy History: n/a Mammogram: done September 2024 2/2 nipple discharge, repeat yearly Colonoscopy per PCP OB History Para Term [...] weight loss, fatigue, fevers/chills : see HPI Objective: BP 114/72 Ht 5' 2 (1.575 m) Wt 231 lb (105 kg) BMI 42.25 kg/m Physical Exam Gen: normal appearance, NAD [...] or tenderness bilaterally Assessment: Diagnosis Plan 1. Women's annual routine gynecological examination 2. Encounter for screening mammogram for malignant neoplasm of breast Bilateral screening mammogram with tomosynthesis Plan: Maintain yearly visits with WHOLESALE LOAN PROCESSOR for well-woman exam. Establish care with General PCP for routine health maintenance. -wants skin tags removed, will scheduled procedure Follow up in about 1 year (around 03/19/2026) for Annual. Orders Placed This Encounter Procedures Bilateral screening mammogram with tomosynthesis Standing Status: Future Expected Date: 03/19/2025 Expiration Date: 05/19/2026 documented in this encounter [facility] 02-19-2025 Progress note [facility] 02-19-2025 Progress note Note Date/Time February 19, 2025 5:42pm [facility] [address] [place] [id number] OFFICE VISIT Date of Service: 02/19/25 MR#: [id number] Acct: [id number] Name: ROXANNASARAHANNELISE BRAYELLE Rep #: [id number] : 1985 Provider: ROSY Das Age/Sex: 39/F Location: [facility] Status: Signed Intake Vital Signs 07/31/24 17:27 Height 5 ft 2 in Intake Visit Reasons: BACK PAIN, Back pain Chief Complaint: neck, upper and low back pain Commissions Manager Required: No Accompanied by: Self Is patient [...] CPT Codes Procedures - Manipulation: 3-4 regions (33682) Procedures - Traction, Mechanical: Yes (19768) 02/23/25 0854 <Electronically signed by Kat Thapa> Date _ Kat Thiago Ibarra Signature: Date (if applicable) CC: ~ [facility] Work Phone: 1(318) 684-962107-03-2025 Evaluation note* Diagnosis Onset Date Resolution Status [...] somatic dysfunction of cervical region acute S eptember 2024 5:22pm Segmental and somatic dysfunction of lumbar region acute Sep tember 2024 5:22pm Segmental and somatic dysfunction of pelvic region acute Sep tember 2024 5:22pm Segmental and somatic dysfunction of thoracic region acute S eptember 2024 5:22pm [facility] Work Phone: 1(697) 625-969305-05-2025 Radiology Diagnostic study note [facility] Services [address] [place], [place] [id number] Breast Limited Unilateral MR#: [id number] Acct: [id number] Name: ANNELISE BOURGEOIS Rep #: [id number] : 1985 F 38 From: Antonio Hampton DO PCP: Dr. Salomón Perkins MD Status: REG C JESSIE Study:Breast Limited Unilateral Date of Exam: 09/29/24 Exam# [id number] Ordering Dr: Emilia Wilson MD PROCEDURE: BREAST [...] BENIGN. RECOMMEND ANNUAL MAMMOGRAPHIC SCREENING. Reading Location: [id number] CC: Dr. Benita Wilson MD; Dr. Salomón Perkins MD ~ Mushroom Cutter: Signed [facility]05-01-2025 Evaluation note* Diagnosis Onset Date Resolution Status [...] 5:30pm Back pain noneactive December 25 5:30pm [facility] Work Phone: 1(364) 907-315604-17-2025 History of Present illness Narrative* Benita Wilson [...] blood from nipple -planning to do at [place] since she works there; will let us know if she has trouble getting scheduled in timely manner On this date, 09/11/24 I have spent 20 minutes reviewing previous notes, test results and face to face with the patient discussing the diagnosis and importance of compliance with the treatment plan as well as documenting on the day of the visit. documented in this [facility]03-13-2025 Evaluation note* Diagnosis Onset Date Resolution Status Admit Date Segmental and somatic dysfunction of cervical region acute M arch 2024 5:23pm Segmental and somatic dysfunction of lumbar region acute Mar 2024 5:23pm Segmental and somatic dysfunction of pelvic region acute Mar 2024 5:23pm Segmental and somatic dysfunction of thoracic region acute M arch 2024 5:23pm Spondylolisthesis at L5-S1 level [facility] August 07, 2024 5:23pm Segmental and somatic dysfunction of cervical region acute M 2024 5:18pm Segmental and somatic dysfunction of lumbar region acute September 25, 2024 5:18pm Segmental and somatic dysfunction of pelvic region acute September 25, 2024 5:18pm Segmental and somatic dysfunction of thoracic region acute [facility] 2024 5:18pm Spondylolisthesis at L5-S1 level [facility] September 25, 2024 5:18pm Back pain noneactive September 25, 2024 5:18pm [facility] Work Phone: 1(903) 657-165903-13-2025 Evaluation note* Diagnosis Onset Date Resolution Status Admit Date Segmental and somatic dysfunction of cervical region acute M arch 2024 5:23pm Segmental and somatic dysfunction of lumbar region acute Mar 2024 5:23pm Segmental and somatic dysfunction of pelvic region acute Mar 2024 5:23pm Segmental and somatic dysfunction of thoracic region acute M arch 2024 5:23pm Spondylolisthesis at L5-S1 level [facility] August 07, 2024 5:23pm Segmental and somatic [...] Back pain noneactive October 23, 2024 5:20pm [employer] Work Phone: 1(198) 576-284803-13-2025 Evaluation note* Diagnosis Onset Date Resolution Status Admit Date Segmental and somatic dysfunction of cervical region acute M [facility] 2024 5:23pm Segmental and somatic dysfunction of lumbar region acute [facility][1] 2024 5:23pm Segmental and somatic dysfunction of pelvic region acute [facility][1] 2024 5:23pm Segmental and somatic dysfunction of thoracic region acute [facility] 2024 5:23pm Spondylolisthesis at L5-S1 level [facility] August 07, 2024 5:23pm Segmental and somatic dysfunction of cervical region acute M 2024 5:18pm Segmental and somatic dysfunction of [...] Back pain noneactive November 27, 2024 5:21pm [facility] Work Phone: 1([phone]) 428-662410-03-2024 History of Present illness Narrative* Benita Wilson MD - 02/28/2024 2:00 PM EDT Images from the original note were not included. Annelise Bourgeois 38 y.o. HPI: The patient was [...] see HPI Objective: BP 114/72 Ht 5' 2 (1.575 m) Wt 240 lb (109 kg) [...] per week. 2. Maintain yearly visits with WHOLESALE LOAN PROCESSOR for well-woman exam. 3. Establish care with General PCP for routine health maintenance. Counseling Completed: 1. Reproductive Planning 2. Prevention of STD Follow up in about 1 year (around 02/27/2025) for Annual. No orders of the defined types were placed in this encounter. [facility] noteNo assessment information availableWWyandot [facility] Hospital Work Phone: Evaluation note* Diagnosis Onset [...] at L5-S1 level chronic Back pain noneactive [facility] Work Phone: Evaluation note* Diagnosis [...] at L5-S1 level chronic Back pain noneactive [facility] Work Phone: Evaluation note* Diagnosis [...] of thoracic region acute Back pain noneactive [facility] Work Phone: Evaluation note* Diagnosis Well woman exam with routine gynecological exam Routine gynecological examination Screening for cervical cancer Screening for malignant neoplasm of the cervix documented in this encounter [facility]* Diagnosis Bloody discharge from left nipple- Primary documented in this encounter 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 Salomón Perkins MD Primary Care Provider [...] Team Status: Active Member Role Status Dates [facility] Attending Provider Active Start: June 04, [...] Inactive Member Role/Relationship Status Dates Dr. Salomón Perknis MD Primary Care Provider Active Start: November [...] section and content) DATE CREATED AUTHOR 07/10/2023 [facility] DATE CREATED AUTHOR AUTHOR'S ORGANIZ ATION 03/09/2024 [facility] DATE CREATED AUTHOR AUTHOR'S ORGANIZ ATION 03/21/2025 [facility] DATE CREATED AUTHOR AUTHOR'S ORGANIZ ATION 04/09/2025 [facility] Reason for Visit (unrecogniz ed section and content) Reason Comments New Patient Annual Exam Reason Comments Breast Pain Nipple discharge (Br own ) bloody Reason Comments Annual Exam FOR RECORDS PERTAINING TO PATIENTS WHO ARE [...] BE BASED ON THE PRIMARY CLINICAL RECORDS. [facility] [employer] [facility]. provides no warranty or guarantee of the accuracy or completeness of information in this document.
--- NOTE | 2025-04-16 23:10 | RAD_ITS ---
PROCEDURE: L/S SPINE MIN 4 VIEWS 04/16/2025 REASON FOR EXAM: BACK PAIN TECHNIQUE: Procedure Code: RADSPLS Modality: DX Procedure: Four view lumbar spine series including bilateral oblique views COMPARISON: None. RAD/L/S Spine Min 4 Views IMPRESSION: Degenerative changes are seen throughout the visualized lower thoracic and lumb ar spine. Prominent mid to lower lumbar posterior facet hypertrophy is seen. No evidence of spondylolysis or spondylolisthesis. At least mild disc narrowing is seen at L3-L4, possibly mild disc narrowing at L2-L3, as well. Probable moderate disc narrowing at L5-S1. Minimal sacroiliac joint degenerative changes are noted. No fracture site is seen. Reading [facility]
== END | disposition home or self-care (01) ==
LOC: RAD 22:59
PROVIDERS: PCP Family Medicine Geriatric Medicine; Visit Provider Chiropractor
DX: M99.03 Segmental and somatic dysfunction of lumbar region (principal); M99.02 Segmental and somatic dysfunction of thoracic region; M99.01 Segmental and somatic dysfunction of cervical region; M99.05 Segmental and somatic dysfunction of pelvic region; M54.17 Radiculopathy, lumbosacral region
CPT/HCPCS: 72110

== ENCOUNTER 2025-04-17 09:37 | Day surgery (SDC) | payer OTHER, SELFPAY ==
[2025-04-17] VITALS (7 sets, daily range): BP systolic 119–136; BP diastolic 73–80; PULSE 67–83; RESP 14–18; TEMP 35.8–36.8; O2SAT 94–100; BMI 42.1
[2025-04-17] MEDS: Lactated Ringers 1,000 ML 15 ML IV (10:26)
--- OUTSIDE RECORDS SUMMARY | 2025-04-17 10:27 | XMS RPT_ITS | CCD ---
Author Organization [facility] [employer] Care Team Providers Care Educational Program Director Name Role Phone Dr. Salomón Perkins Chi Primary Care Provider Dr. Salomón Perkins Chi Referring Provider Dr. Kat Das Attending Provider [phone] Primary Care Provider NEGAR Crawford Primary Care Unavailable REFERRED, SELF Referring Unavailable JASSON PEREA Attending Unavailable FABY DELATORRE Attending Unavailable FABY DELATORRE Referring Unavailable Unavailable Primary Care Provider UnavailBENITA Drew Attending [facility], Employee Attending Provider Gregorio GONZALEZ, Dr. Salomón Trevino Primary Care Provider [phone] Gregorio GONZALEZ, Dr. Salomón Trevino Referring Provider Dossi DC, Dr. Stephens Attending Provider [phone] Benita Wilson MD Attending Provider Katie GONZALEZ, Dr. Joy Referring Provider Gregorio GONZALEZ, Dr. Salomón Trevino Primary Care Provider Gregorio GONZALEZ, Dr. Salomón Trevino Referring Provider Dossi DC, Dr. Stephens Attending Provider [phone] Nika GONZALEZ, Dr. Delgadillo Attending Provider Gregorio GONZALEZ, Dr. Salomón Trevino Primary Care Physician Nika GONZALEZ, Dr. Delgadillo Attending Physician Gregorio GONZALEZ, Dr. Salomón Trevino Referring Provider Dossi DC, Dr. Stephens Attending Physician [phone] Valentina GONZALEZ, Dr. Fountain Attending Physician 1([facility])2 KATIE, BENITA Attending Unavailable KATIE, BENITA Attending [...] Chi Referring Unavailable Dossi, Kat Attending Unavailable Greogrio, Salomón Chi Primary Care Unavailable Gregorio, Salomón [...] Facility (3 sources) Citalopram Drug Allergy 02-28-2024 [facility] Medications Current Medications Medication Drug Class(es) [...] Range Facility Chiropractic Reporton 2024 Chiropractic Report [facility] Chiropractic [address] [place] [address] OFFICE VISIT Date of Service: 03/26/25 MR#: [id number] Acct: [id number] Name: ANNELISE BOURGEOIS Rep #: [id number] : 1985 Provider: ROSY Humphreys Age/Sex: 39/F Location: [facility] Status: Signed Intake Vital Signs 07/31/24 17:27 03/19/25 09:59 Height 5 ft 2 in 5 ft 2 in Intake Visit Reasons: Back pain Chief Complaint: Low back pain and right sciatica Retail Selling Specialist Required: No Accompanied by: Daughter Is patient [...] CPT Codes Procedures - Manipulation: 3-4 regions (49538) (more content not included)... Normal [facility] Office Visiton 03-19-2025 Follow-up visit [id number] Annelise Bourgeois 1985 F Date Provider Department Center 03/19/2025 80393-UEKEBENITA RANGEL [facility] Family History Family Status - Relation Status Age at Father Mother Alive Level of Service:04610 [place] PERIODIC PREVENTIVE MED EST PATIENT 40-64YRS Reason for Visit and Comments: Annual Exam [83] Normal [facility] Plastic Surgery Visit Report on 03-19-2025 Plastic Surgery Visit Report [facility] Plastic Reconstructive Surgery [address], [address] [place] [address] OFFICE VISIT Date of Service: 03/19/25 MR#: [id number] Acct: [id number] Name: ANNELISE BOURGEOIS Rep #: [id number] : 1985 Provider: Dr. Александр Montgomery MD Age/Sex: 39/F Location: [facility] Status: Signed Intake Vital Signs 3 02/27/25 [...] carmen to (more content not included)... Normal [facility] Progress Noteon 03-19-2025 Progress Note Annelisese Bourgeois [...] with tomosynthesis Plan: Maintain yearly visits with [employer] for well-woman exam. Establish care with General PCP for routine health maintenance. -wants skin tags removed, will scheduled procedure Follow up in about 1 year (around 03/19/2026) for Annual. 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 Salomón Perkins MD Status: REG CLI Study: Ext Non Vasc Limited/Soft Tiss Date of Exam: 1 Exam# [id number] Ordering Dr: Александр Montgomery MD PROCEDURE: EXT [...] Probable lymph nodes as above. Reading Location: [facility] CC: Dr. Александр Montgomery MD; Dr. Salomón Perkins MD Patient Companion: Signed [facility] Plastic Surgery Visit Report on 02-27-2025 Plastic Surgery Visit Report [facility] Plastic Reconstructive Surgery [address], [address] [place], [place] [address] OFFICE VISIT Date of Service: 02/27/25 MR#: [id number] Acct: [id number] Name: ANNELISE BOURGEOIS Rep #: [id number] : 1985 Provider: Dr. Александр Montgomery MD Age/Sex: 39/F Location: [facility] Status: Signed Intake Vital Signs [...] mg PO QDAY 02/19/25 02/27/25 Hi story [facility] Surgical History History of wisdom tooth [...] of craniofa (more content not included)... Normal [facility] Chiropractic Reporton 2024 Chiropractic Report [facility]rop[facility]ic [facility] [place] [address] OFFICE VISIT Date of Service: 02/19/25 MR#: [id number] Acct: [id number] Name: ANNELISE BOURGEOIS Rep #: [id number] : 1985 Provider: ROSY Humphreys Age/Sex: 39/F Location: [facility] Status: Signed Intake Vital Signs 07/31/24 17:27 Height 5 ft 2 in Intake Visit Reasons: BACK PAIN, Back pain Chief Complaint: neck, upper and low back pain Retail Selling Specialist Required: No Accompanied by: Self Is patient in pain?: Yes (low back, sciatic and hips) Pain scale (1-10): 8 Allergies No Known Allergies Allergy (Verified 02/19/25 17:29) Medications ???Medication ???Instructions ???Recorded ???Confirmed ???Type pantoprazole 40 mg tablet,delayed 40 mg PO DAILY 01/26/21 02/19/25 History release fluoxetine 60 mg tablet 60 mg PO QDAY 02/19/25 02/19/25 Hi story [facility] Surgical History History of wisdom tooth [...] CPT Codes Procedures - Manipulation: 3-4 regions (94452) Procedures - Traction, Mechanical: Yes (53168) 02/23/25 0854 Date Kat Ibarra Signature: Date (more content not included)... Normal [facility] Chiropractic Reporton 2024 Chiropractic Report [facility] Chiropractic [facility] [place] [address] OFFICE VISIT Date of Service: 12/25/24 MR#: [id number] Acct: [id number] Name: ANNELISE BOURGEOIS Rep #: [id number] : 1985 Provider: ROSY Humphreys Age/Sex: 39/F Location: [facility] Status: Signed Intake Vital Signs [...] care as needed. Consider updated xrays at [facility]. Plan Details Goals Barriers: Goals Decrease pain Decrease inflammation Improve ROM Improve workability Follow Up: PRN Coding Level of Care Code No Charge Diagnoses Segmental and somatic dysfunction of pelvic region M99.05 Segmental and somatic dysfunction of cervical region M99.01 Segmental and somatic dysfunction of lumbar region M99.03 Segme (more content not included)... Normal [facility] Chiropractic Reporton 2024 Chiropractic Report [facility] [address] [place] [address] OFFICE VISIT Date of Service: 11/27/24 MR#: [id number] Acct: [id number] Name: ANNELISE BOURGEOIS Rep #: [id number] : 1985 Provider: ROSY Humphreys Age/Sex: 39/F Location: [facility] Status: Signed Intake Vital Signs 07/31/24 [...] radiculopathy M54.17 (more content not included)... Normal [facility] Chiropractic Reporton 2024 Chiropractic Report [facility] [address] [place] [address] OFFICE VISIT Date of Service: 10/23/24 MR#: [id number] Acct: [id number] Name: CLARENCEANNELISE SMALLWOOD Rep #: [id number] : 1985 Provider: ROSY Humphreys Age/Sex: 38/F Location: [facility] Status: Signed Intake Vital Signs [...] M99.02 Spondylolisthesis (more content not included)... Normal [facility] Breast Limited Unilateralon 09-29-2024 Breast Limited Unilateral [facility] Imaging Services [address] [place], [place] [address] Breast Limited Unilateral MR#: [id number] Acct: [id number] Name: ANNELISE BOURGEOIS Rep #: [id number] : 1985 F 38 From: Christine Donis PCP: Dr. Salomón Perkins MD Status: REG CLI Study: Breast Limited Unilateral Date of Exam: Exam# [id number] Ordering Dr: Benita Wilson MD PROCEDURE: BREAST [...] BENIGN. RECOMMEND ANNUAL MAMMOGRAPHIC SCREENING. Reading Location: [id number] CC: Dr. Benita Wilson MD; Dr. Salomón Perkins MD Patient Companion: Signed Normal [facility] Breast imaging reportOrdered By: Christine Hampton on 09-29-2024 Study report [facility] Imaging Services [address] [facility] [address] [place] [address] DIAG MAMM W/CAD, BILAT MR#: [id number] Acct: [id number] Name: ANNELISE BOURGEOIS Rep #: [id number] : 1985 F 38 From: Antonio Hampton DO PCP: Dr. Salomón Perkins MD Status: REG Jay ROMAN Study:DIAG MAMM W/CAD, BILAT Date of Exam: 09/29/24 Exam# [id number] Ordering Dr: Emilia Wilson MD EXAM: DIAG [...] be mailed to the patient. Reading Location: [facility] CC: Dr. Benita Wilson MD; Dr. Salomón Perkins MD ~ Patient Companion: Signed [facility] DIAG MAMM W/CAD, BILATon DIAG MAMM W/CAD, BILAT [facility] Imaging Services [address] [place], [place] [address] DIAG MAMM W/CAD, BILAT MR#: [id number] Acct: [id number] Name: ANNELISE BOURGEOIS Rep #: [id number] : 1985 F 38 From: Christine Donis PCP: Dr. Salomón Perkins MD Status: REG CLI Study: DIAG MAMM W/CAD, BILAT Date of Exam: 09/29/24 Exam# [id number] Ordering Dr: Benita Wilson MD EXAM: DIAG [...] be mailed to the patient. Reading Location: [id number] CC: Dr. Benita Wilson MD; Dr. Salomón Perkins MD Patient Companion: Signed Normal [facility] Chiropractic Reporton 2024 Chiropractic Report [facility]rop[facility] [address] [place] [address] OFFICE VISIT Date of Service: 09/25/24 MR#: [id number] Acct: [id number] Name: ANNELISE BOURGEOIS Rep #: [id number] : 1985 Provider: ROSY Humphreys Age/Sex: 38/F Location: [facility] Status: Signed Intake Vital Signs 07/31/24 [...] of pelv (more content not included)... Normal [facility] Office Visiton 09-11-2024 Follow-up visit [id number] Annelise Bourgeois 1985 F Date Provider Department Center 09/11/2024 BENITA ZAMORA [facility] Family History Family Status - Relation Status Age at Father Mother Alive Level of Service:13241 [place] OFFICE/OUTPATIENT ESTABLISHED LOW MDM 20 MIN Reason for Visit and Comments: Breast Pain [932176] - Nipple discharge (Brown ) bloody Normal [facility] Progress Noteon 09-11-2024 Progress Note HPI: [...] blood from nipple -planning to do at [employer] since she works there; will let us know if she has trouble getting scheduled in timely manner On this date, 09/11/24 I have spent 20 minutes reviewing previous notes, test results and face to face with the patient discussing the diagnosis and importance of compliance with the treatment plan as well as documenting on the day of the visit. Normal [facility] Chiropractic Reporton 2024 Chiropractic Report [facility] Chiropractic [address] [place] [address] OFFICE VISIT Date of Service: 08/07/24 MR#: [id number] Acct: [id number] Name: ANNELISE BOURGEOIS Rep #: [id number] : 1985 Provider: ROSY Humphreys Age/Sex: 38/F Location: [facility] Status: Signed Intake Vital Signs 12/27/23 [...] M99.02 Spon (more content not included)... Normal [facility] Chiropractic Reporton 2024 Chiropractic Report [facility] Chiropractic [address] [place], [place] [id number] OFFICE VISIT Date of Service: 05/29/24 MR#: [id number] Acct: [id number] Name: ANNELISE BOURGEOIS Rep #: [id number] : 1985 Provider: ROSY Humphreys Age/Sex: 38/F Location: [facility] Status: Signed Intake Vital Signs 12/27/23 [...] somatic dysfunction (more content not included)... Normal [facility] Chiropractic Reporton 2023 Chiropractic Report [facility] Chiropractic [address] [place] [address] OFFICE VISIT Date of Service: 05/01/24 MR#: [id number] Acct: [id number] Name: ANNELISE BOURGEOIS Rep #: [id number] : 1985 Provider: ROSY Humphreys Age/Sex: 38/F Location: [facility] Status: Signed Intake Vital Signs [...] CPT Codes Procedures - Manipulation: 3-4 regions (78215) 05/06/24 0908 Date Ka (more content not included)... Normal [facility] Office Visiton 02-28-2024 Follow-up visit [id number] Annelise Bourgeois 1985 F Date Provider Department Center 02/28/2024 69775-YKTCBENITA RANGEL [facility] Family History Family Status - Relation Status Age at Father Mother Alive Level of Service:61753 [place] INITIAL PREVENTIVE MEDICINE NEW PT AGE 18-39YRS Reason for Visit and Comments: New Patient [542] Annual Exam [83] Normal [facility] Progress Noteon 02-28-2024 Progress Note Annelise Bourgeois [...] per week. 2. Maintain yearly visits with [employer]ULKER for well-woman exam. 3. Establish care with General PCP for routine health maintenance. Counseling Completed: 1. Reproductive Planning 2. Prevention of STD Follow up in about 1 year (around 02/27/2025) for Annual. No orders of the defined types were placed in this encounter. Normal [facility] Quantiferon TB Goldon 2023 Mitogen minus NIL >9.80 Normal [facility] Comment on above: Performed By: #### Q [facility] #### [place] [address] Quantiferon TB Gold Negative Normal Negative [facility] Comment on above: Result Comment: Inte rferon [...] M. szulgai, or M. marinum). Testing Performed: [place] [address] Performed By: #### Q [facility] #### [place] [address] TB1 minus NIL -0.12 IU/mL Normal -0.50-0.34 [facility] Comment on above: Performed By: #### Q [facility] #### [place] [address] TB2 minus NIL -0.10 IU/mL Normal -0.50-0.34 [facility] Comment on above: Performed By: #### Q [facility] #### [place] [address] Mumps IgG Abon 05-26-2023 Mumps IgG Abs Positive Normal [facility] Comment on above: Result Comment: Resu lts suggest response to immunization or prior exposure to the virus. REFERENCE VALUE Vaccinated: Positive (>=1.1 AI) Unvaccinated: Negative (<=0.8 AI) Performed By: #### M UMPG #### [address] [address] Mumps IgG Index Value 1.2 Normal [facility] Comment on above: Result Comment: Test Performed by: [place] [address] Loan Servicing Specialist: Alcides Taylor M.D. Ph.D.; CLIA# [id number] Performed By: #### M UMPG #### [address] [address] Rubella IgG Abon 05-26-2023 Rubella IgG Ab Equivocal Normal [facility] Comment on above: Result Comment: Kristian mmend follow-up testing in 10-14 days if clinically indicated. REFERENCE VALUE Vaccinated: Positive (>=1.0 AI) Unvaccinated: Negative (<=0.7 AI) Performed By: #### R UBLG #### [address] [id number] Rubella IgG Index 0.9 Normal [facility] Comment on above: Result Comment: Test Performed by: [place] [address] Loan Servicing Specialist: Alcides Taylor M.D. Ph.D.; CLIA# [id number] Performed By: #### R UBLG #### [address] [address] Rubeola IgG Abon 05-26-2023 Rubeola IgG Ab Negative Normal [facility] Comment on above: Result Comment: REFERENCE VALUE Vaccinated: Positive (>=1.1 AI) Unvaccinated: Negative (<=0.8 AI) Performed By: #### M ESGG #### [address] [id number] Rubeola IgG Ab, Index 0.2 Normal [facility] Comment on above: Result Comment: Test Performed by: Formerly Named [facility] [address] [place] [address] Loan Servicing Specialist: Alcides Taylor M.D. Ph.D.; CLIA# [id number] Performed By: #### M ESGG #### [address] [address] COVID-19 virus antigen assay Ordered By: Dr. Perkins on 07-12-2022 SARS-CoV-2 (COVID-19) Ag IA.rapid Ql (Resp) Not detected Not Detect [facility] Comment on above: Normal Reference Ran ge: [...] 07-12-2022 Influenza Types A,B Direct FA (GEORGINA) [facility] RSV Ag EIAOrdered By: Dr. Yoana pugh on 07-12-2022 RSV Ag Immune stain Ql (Tiss) [facility] Laboratory - Microbiology an d Antimicrobial susceptibilityOrdered By: Dr. Prekins on 05-24-2022 SARS-CoV-2 (COVID-19) RNA XIOMARA+probe Ql (Unsp spec) Not detected Not Detect [facility] Comment on above: Normal Reference Ran ge: [...] 05-24-2022 Influenza Types A,B Direct FA (GEORGINA) [facility] RSV Ag EIAOrdered By: Dr. Yoana pugh on 05-24-2022 RSV Ag Immune stain Ql (Tiss) [facility] Laboratory - Microbiology an d Antimicrobial susceptibilityon 05-24-2021 SARS-CoV-2 (COVID-19) RNA XIOMARA+probe Ql (Unsp spec) Not detected Not Detect [facility] Work Phone: Comment on above: Normal Reference [...] Informationon 05-24 Influenza Types A,B Direct FA ([facility]) [facility] Work Phone: No Panel Information Influenza Types A,B Direct FA ([facility]) [facility] Work Phone: RSV Ag EIA RSV Ag Immune stain Ql (Tiss) [facility] Work Phone: Vital Signs Date Time Vital Sign Value Performing Clinician Faci lity 03-19-2025 13:13-0400 Body height 157.5 cm Benita Wilson MD Work Phone: [facility] [employer] 03-19-2025 13:13-0400 Body mass index (BMI) [Ratio] 42.25 kg/m2 Benita Wilson MD Work Phone: [facility] [employer] 03-19-2025 13:13-0400 Body weight 104.78 kg Benita Wilson MD Work Phone: [facility] [employer] 03-19-2025 13:13-0400 Diastolic blood pressure 72 mm[Hg] Benita Wilson MD Work Phone: [facility] [employer] 03-19-2025 13:13-0400 Systolic blood pressure 114 mm[Hg] Benita Wilson MD Work Phone: [facility] [employer] 09-11-2024 14:33-0400 Body height 157.5 cm Benita Wilson MD Work Phone: [facility] [employer] 09-11-2024 14:33-0400 Body mass index (BMI) [Ratio] 43.9 kg/m2 Benita Wilson MD Work Phone: [facility] [employer] 09-11-2024 14:33-0400 Body weight 108.86 kg Benita Wilson MD Work Phone: [facility] [employer] 09-11-2024 14:33-0400 Diastolic blood pressure 78 mm[Hg] Benita Wilson MD Work Phone: [facility] [employer] 09-11-2024 14:33-0400 Systolic blood pressure 124 mm[Hg] Benita Wilson MD Work Phone: [facility] 07-31-2024 17:27-0500 Body height 157.[address] Salomón Perkins MD Work Phone: [facility] 02-28-2024 14:05-0400 Body height 157.5 cm Benita Wilson MD Work Phone: [facility] 02-28-2024 14:05-0400 Body mass index (BMI) [Ratio] 43.9 kg/m2 Benita Wilson MD Work Phone: [facility] 02-28-2024 14:05-0400 Body weight 108.86 kg Benita Wilson MD Work Phone: [facility] 02-28-2024 14:05-0400 Diastolic blood pressure 72 mm[Hg] Benita Wilson MD Work Phone: [facility] 02-28-2024 14:05-0400 Systolic blood pressure 114 mm[Hg] Benita Wilson MD Work Phone: [facility] 02-02-2022 17:48-0400 Body height 157.[address] Salomnó Perkins Work Phone: [facility] Work Phone: 02-02-2022 17:48-0400 Body mass index (BMI) [Ratio] 41.3 kg/m2 Dr. Salomón ePrkins Work Phone: [facility] Work Phone: 02-02-2022 17:48-0400 Body weight 102.[address] Salomón Perkins Work Phone: [facility] Work Phone: Encounters Encounter Date Encounter Type Care Provider Facility Start: 04-09-2025 End: 04-09-2025 ambulatory Kat Dossi Facility:[facility] Start: 03-26-2025 End: 03-26-2025 ambulatory Kat Dossi Facility:[facility] Start: 03-19-2025 End: 03-19-2025 Patient encounter procedure Beinta Wilson MD Work Phone: [facility] Work Phone: Start: 03-19-2025 End: 03-19-2025 Periodic preventive med est patient 40-64yrs Benita Wilson MD Work Phone: [facility] Obstetrics and Gynecology [facility] Comment on above: Women's annual routi ne gynecological examination (Primary Dx); Encounter for screening mammogram for malignant neoplasm of breast Start: 03-19-2025 End: 03-19-2025 ambulatory [facility] Start: 03-19-2025 End: 03-19-2025 Encounter for gynecological examination (general) (routine) without abnormal findings [facility] Start: 03-19-2025 End: 03-19-2025 ambulatory Александр Montgomery Facility:[facility] Start: 03-12-2025 End: 03-12-2025 ambulatory Salomón Perkins Facility:[facility] Start: 02-27-2025 End: 02-27-[address] Александр Montgomery MD [facility] Work Phone: Start: 02-27-2025 End: 02-27-[address] Salomón Perkins MD Work Phone: [facility] Start: 02-19-2025 End: 02-19-[address] Kat Das DC [facility] Work Phone: Start: 02-19-2025 End: 02-19-[address] Salomón Perkins MD Work Phone: [facility] Start: 01-22-2025 ambulatory Salomón Perkins Facility:[facility] Start: 12-25-2024 End: 12-25-[address] Kat Das DC -[facility] Work Phone: Start: 12-25-2024 End: 12-25-[address] Salomón Perkins MD Work Phone: [facility] Start: 11-27-2024 End: 11-27-[address] Kat Das DC [facility] Work Phone: Start: 11-27-2024 End: 11-27-[address] Salomón Perkins MD Work Phone: [facility] Start: 11-25-2024 Non-patient / Non-visit Dr. Kieran Maher MD -[facility] Work Phone: Start: 10-23-2024 End: 10-23-[address] Kat Das DC [facility] Work Phone: Start: 10-23-2024 End: 10-23-[address] Salomón Perkins MD Work Phone: [facility] Work Phone: Start: 09-29-2024 End: 09-29-[address] Salomón Perkins MD Work Phone: [facility] Work Phone: Start: 09-29-2024 End: 09-29-[address] Benita Wilson MD -[facility] Work Phone: Start: 09-29-2024 End: 09-29-2024 ambulatory Salomón Chi Gregorio Facility:[facility] Start: 09-25-2024 End: 09-25-[address] Kat Das DC [facility] Work Phone: Start: 09-25-2024 End: 09-25-2024 ambulatory Salomón Uriel Leesok Facility:[facility] Start: 09-11-2024 End: 09-11-2024 Office outpatient visit 15 minutes Benita Wilson MD Work Phone: [facility]etrics [facility]ne[facility] [place] Comment on above: Bloody discharge fro m left nipple (Primary Dx) Start: 09-11-2024 End: 09-11-2024 ambulatory BENITA WILSON [facility] Start: 08-07-2024 End: 08-07-[address] Kat [facility] Work Phone: Start: 08-07-2024 End: 08-07-2024 ambulatory Salomón Chi Gregorio [facility] Start: 06-04-2024 Registered [employer] -Employee [employer] Start: 06-03-2024 ambulatory Salomón Chi Gregorio Facility:[facility] Start: 05-29-2024 End: 05-29-2024 ambulatory Salomón Chi Gregorio [facility] Start: 05-01-2024 End: 05-01-2024 ambulatory Salomón Chi Gregorio [facility] Start: 02-28-2024 End: 02-28-2024 Initial preventive medicine new pt age 18-39yrs Benita Wilson MD Work Phone: [facility] Obstetrics and Gynecology [facility] Comment on above: Well woman exam with routine gynecological exam; Screening for cervical cancer Start: 02-28-2024 End: 02-28-2024 Patient encounter procedure Benita Wilson MD Work Phone: [facility] Start: 02-28-2024 End: 02-28-2024 ambulatory [facility] Start: 02-28-2024 End: 02-28-2024 Encounter for gynecological examination (general) (routine) without abnormal findings [facility] Start: 07-06-2023 ambulatory [facility] Start: 05-25-2023 End: 05-26-2023 ambulatory [facility] Start: 05-25-2023 End: 05-25-2023 Subsequent hospital visit by physician [facility]y [facility]ator[facility] Work Phone: [facility] Comment on above: Arrived Start: 09-28-2022 End: 09-28-[address] Salomón Perkins Work Phone: [facility] Work Phone: Start: 09-28-2022 End: 09-28-[address] Salomón Perkins Work Phone: [facility]-Radiology, [facility] Start: 09-14-2022 End: 09-14-[address] Salomón Perkins Work Phone: [facility] Start: 08-03-2022 End: 08-03-[address] Salomón Perkins Work Phone: [facility] Start: 07-12-2022 End: 07-12-[address] Salomón Perkins Work Phone: [facility] Work Phone: Start: 07-12-2022 End: 07-12-[address] [facility]ón Perkins [facility] Start: 07-06-2022 End: 07-06-[address] Salomón Perkins Work Phone: [facility] Start: 06-08-2022 End: 06-08-[address] Salomón Perkins Work Phone: [facility] Start: 05-24-2022 End: 05-24-[address] Salomón Perkins Work Phone: [facility] Work Phone: Start: 05-24-2022 End: 05-24-[address] Salomón Perkins [facility] Start: 05-11-2022 End: 05-11-[address] Salomón Perkins Work Phone: [facility] Start: 04-06-2022 End: 04-06-[address] Salomón Perkins Work Phone: [facility] Start: 02-02-2022 End: 02-02-[address] Salomón Perkins Work Phone: [facility] Start: 08-25-2021 End: 08-25-2021 Patient encounter procedure [facility]-Laboratory, Specimen Start: 05-24-2021 Patient encounter procedure [facility] Services/Neurology Procedures Date Procedure Procedure Detail Performing [...] for Adults (1 - 1-dose 75+ series) [facility] Start: 2044 RSV Immunization age d 60 or older (1 - 1-dose 60+ series) RSV Immunization aged 60 or older (1 - 1-dose 60+ series) [facility] Start: 2034 Zoster Vaccines (1 o f 2) Zoster Vaccines (1 of 2) [facility] Start: 02-27-2029 Screening for malign ant neoplasm of cervix [facility] Start: 02-27-2027 Screening for malign ant neoplasm of cervix Pap Smear [facility] Start: 03-25-2026 End: 03-25-2026 Patient encounter procedure 03/25/2026 2:00 PM EDT Office Visit [facility]s [facility] Gynecology - [place] [address] [place] [id number] Benita Wilson MD [address] [place] [address] [facility] Obstetrics [facility] Gynecology [facility] Start: 03-19-2026 Depression Screening Depression Scre ening [facility] Start: 09-29-2025 Screening for malign ant neoplasm of breast Mammogram [facility] Start: 04-17-2025 ambulatory Ambulatory Facility:[facility] Start: 03-19-2025 End: 05-19-2026 DBT Breast - bilateral screening Bilateral screening mammogram with tomosynthesis Imaging Routine Encounter for screening mammogram for malignant neoplasm of breast Expected: 03/19/2025, Expires: 05/19/2026 [facility] Work Phone: Comment on above: Expected: 03/19/2025 , Expires: 05/19/2026 Start: 03-19-2025 End: 03-19-2025 Patient encounter procedure 03/19/2025 2:00 PM EDT Office Visit [facility]etrics [facility] Gynecology - [place] [address] [place] [address] Benita Wilson MD [address] [place] [address] [facility] Obstetrics and Gynecology [facility] Start: 01-26-2025 COVID-19 Vaccine ( season) COVID-19 Vaccine ( season) [facility] Start: 01-26-2025 Influenza vaccination [facility] Start: 09-11-2024 End: 11-11-2025 DBT Breast - bilateral diagnostic Bilateral diagnostic mammogram with tomosynthesis Imaging Routine Bloody discharge from left nipple Expected: 09/11/2024, Expires: 11/11/2025 [facility] Work Phone: Comment on above: Expected: 09/11/2024 , Expires: 11/11/2025 Start: 09-11-2024 End: 11-11-2025 US Breast - left limited Left breast US limited Imaging Routine Bloody discharge from left nipple Expected: 09/11/2024, Expires: 11/11/2025 [facility] Comment on above: Expected: 09/11/2024 , Expires: 11/11/2025 Start: 01-27-2024 COVID-19 Vaccine ( season) COVID-19 Vaccine ( season) [facility] Start: 01-27-2024 COVID-19 Vaccine ( season) COVID-19 Vaccine ( season) [facility] Start: 01-27-2024 Influenza vaccination Influenza Vacc ine (#1) [facility] Start: 01-26-2023 FLU (#1) FLU (#1) [facility] Start: 2014 Screening for malign ant neoplasm of cervix [facility] Start: 05-06-2009 MMR Vaccines (1 of 1 - Standard series) MMR Vaccines (1 of 1 - Standard series) [facility] Start: 05-06-2009 Varicella vaccination Varicell a Vaccines (1 of 2 - 13+ 2-dose series) [facility] Start: 2005 Microscopic observat ion [Identifier] in Cervix by Cyto stain Pap Smear [facility] Start: 2005 Screening for malign ant neoplasm of cervix Pap Smear [facility] Start: 11-04-2003 DTaP/Tdap/Td Vaccine s (1 - Tdap) DTaP/Tdap/Td Vaccines (1 - Tdap) [facility] Start: 11-04-2003 Hepatitis B Vaccines (1 of 3 - 19+ 3-dose series) Hepatitis B Vaccines (1 of 3 - 19+ 3-dose series) [facility] Start: 2002 Diabetes mellitus screening Diabetes Screening [facility] Start: 2002 Hepatitis C screening Hepatitis C Sc reening [facility] Start: 2000 MenB (1 of 2 - MenB 2-Dose Series Bexsero) MenB (1 of 2 - MenB 2-Dose Series Bexsero) [facility] Start: 1996 Depression Screening Depression Scre aliya [facility] Start: 11-04-1991 Tetanus Diphtheria a nd Pertussis Vaccines (1 - Tdap) Tetanus Diphtheria and Pertussis Vaccines (1 - Tdap) [facility] Start: 1985 MMR (1 of 1 - Standa rd series) MMR (1 of 1 - Standard series) [facility] Start: 1985 Varicella (1 of 2 - 2-dose childhood series) Varicella (1 of 2 - 2-dose childhood series) [facility] Start: 05-05-1985 COVID-19 (#1) COVID-19 (#1) [facility] Start: 1984 Hepatitis B (1 of 3 - 3-dose series) Hepatitis B (1 of 3 - 3-dose series) [facility] Start: 1984 HIV screening HIV Screening [facility] Cytology Cervical or vaginal smear or scraping study Pap Smear Pathology and Cytology Routine Well woman exam with routine gynecological exam Screening for cervical cancer Ordered: 02/28/2024 [facility] Work Phone: Comment on above: Ordered: 02/28/2024 End: 05-25-2023 Mumps IgG Ab Mumps IgG Ab Lab Routine For lab collect this frequency defaults to the next routine lab draw time. Routine times: 0600; 1100; 1400; 1900; 2200 for 1 Occurrences starting 05/25/2023 until 05/25/2023 [facility] Comment on above: For lab collect this frequency defaults to the next routine lab draw time. Routine times: 0600; 1100; 1400; 1900; 2200 for 1 Occurrences starting 05/25/2023 until 05/25/2023 Mumps IgG Ab Mumps IgG Ab Lab Routine 05/25/2023 8:39 AM EST [facility] End: 05-25-2023 Quantiferon TB Gold Quantiferon TB Gold Lab Routine For lab collect this frequency defaults to the next routine lab draw time. Routine times: 0600; 1100; 1400; 1900; 2200 for 1 Occurrences starting 05/25/2023 until 05/25/2023 [facility] Comment on above: For lab collect this frequency defaults to the next routine lab draw time. Routine times: 0600; 1100; 1400; 1900; 2200 for 1 Occurrences starting 05/25/2023 until 05/25/2023 Quantiferon TB Gold Quantiferon TB Gold Lab Routine 05/25/2023 8:39 AM [facility] End: 05-25-2023 Rubella IgG Ab Rubella IgG Ab Lab Routine For lab collect this frequency defaults to the next routine lab draw time. Routine times: 0600; 1100; 1400; 1900; 2200 for 1 Occurrences starting 05/25/2023 until 05/25/2023 [facility] Comment on above: For lab collect this frequency defaults to the next routine lab draw time. Routine times: 0600; 1100; 1400; 1900; 2200 for 1 Occurrences starting 05/25/2023 until 05/25/2023 Rubella IgG Ab Rubella IgG Ab L ab Routine 05/25/2023 8:39 AM [facility] End: 05-25-2023 Rubeola antibody IgG Rubeola antibody IgG Lab Routine For lab collect this frequency defaults to the next routine lab draw time. Routine times: 0600; 1100; 1400; 1900; 2200 for 1 Occurrences starting 05/25/2023 until 05/25/2023 [facility] Work Phone: Comment on above: For lab collect this frequency defaults to the next routine lab draw time. Routine times: 0600; 1100; 1400; 1900; 2200 for 1 Occurrences starting 05/25/2023 until 05/25/2023 Rubeola antibody IgG Rubeola ant ibody IgG Lab Routine 05/25/2023 8:32 AM [facility] Immunizations Immunization Date Immunization Notes Care Provider Fa rico 07-07-2024 Hepatitis B vaccine (recombinant), CpG adjuvanted Dr. Salomón Perkins MD Work Phone: [facility] 06-04-2024 Hepatitis B vaccine (recombinant), CpG adjuvanted Dr. Salomón Perkins MD Work Phone: [facility] 03-27-2024 influenza, injectabl e, quadrivalent, preservative free Dr. Salomón Perkins MD Work Phone: [facility] 03-27-2024 influenza virus vaccine, unspecified formulation Benita Wilson MD Work Phone: [facility] 05-25-2023 influenza virus vaccine, unspecified formulation Benita Wilson MD Work Phone: [facility] 03-17-2021 Covid (Moderna) Dr. Salomón Perkins MD Work Phone: [facility] 07-15-2020 Covid (Moderna) [facility] 06-17-2020 Covid (Moderna) [facility] Payers Date Payer Category Payer Unknown [id number] 2024 Self-pay [id number] 2023 Commercial Managed Care - HMO [id number] 2023 Unknown [id number] 2023 Unknown [id number] 15 2013 Unknown [id number] 1984 Unknown [id number] [id number] Unknown [id number] Unknown [id number] 2.16.8 40.1.218228.3.579.2.462 Unknown [id number] 2.16.8 40.1.092929.3.579.2.462 Unknown [id number] 2.16.8 40.1.411071.3.579.2.462 Unknown [id number] 2.16.8 40.1.483364.3.579.2.462 Unknown [id number] 2.16.8 40.1.343382.3.579.2.462 Unknown [id number] 2.16.8 40.1.437937.3.579.2.462 Unknown [id number] 2.16.8 40.1.120392.3.579.2.462 Unknown [id number] 2.16.8 40.1.286363.3.579.2.462 Unknown [id number] 2.16.8 40.1.712738.3.579.2.462 Unknown [id number] 2.16.8 40.1.636415.3.579.2.462 Unknown [id number] 2.16.8 40.1.445124.3.579.2.462 Unknown [id number] 2.16.8 40.1.635872.3.579.2.462 Unknown [id number] 2.16.8 40.1.043862.3.579.2.462 Unknown [id number] 2.16.8 40.1.511539.3.579.2.462 Unknown [id number] 2.16.8 40.1.997466.3.579.2.462 Unknown [id number] 2.16.8 40.1.683237.3.579.2.462 Unknown [id number] 2.16.8 40.1.510601.3.579.2.462 Social History Date Type Detail Facility Start: 03-17-2021 End: 09-14-2022 Tobacco smoking status WYIS Unknown if ever smoked [facility] Start: 11-14-2019 Cigarettes [facility] Start: 1985 Sex Assigned At Female [facility] Start: 1985 Sex Assigned At Not on file [facility] Start: 02-28-2024 End: 03-19-2025 Gender identity Not on file [facility] Start: 02-28-2024 [facility] Start: 02-28-2024 Tobacco use and exposure Smokeless tobacco non-user [facility] Start: 02-28-2024 End: 03-19-2025 Alcoholic beverage intake Current drinker of alcohol (finding) [facility] Start: 02-28-2024 End: 03-19-2025 History of Social function [facility] How often do you nee d to have someone help you when you read instructions, pamphlets, or other written material from your doctor or pharmacy [SILS] Never [facility] Has the [employer], or water nanoMR threatened to shut off services in your home in past 12Mo No [facility] Are you now , , , , never or living with a partner? Never [facility] How often to you hav e a drink containing alcohol? Never [facility] Do you feel stress - tense, restless, nervous, or anxious, or unable to sleep at night because your mind is troubled all the time - these days [OSQ] To some extent [facility] (I/We) worried wheth er (my/our) food would run out before (I/we) got money to buy more. Never true [facility] Start: 05-25-2023 Sex Female (finding) [facility] Start: 07-31-2024 [facility] Sm[facility] tobacco daily (finding) [facility] How hard is it for y ou to pay for the very basics like food, housing, medical care, and heating Not very hard [facility] Goals Date Patient Goal Desired Activity /State Functional Status Date Assessment Result Facility 03-19-2025 Total score [AUDIT-C] 0 03/19/20 9:38 AM EDT Mychart, Generic [facility] 03-19-2025 How often to you hav e a drink containing alcohol? Never 03/19/2025 9:38 AM EDT Elenit, Generic Never [facility] 03-19-2025 Functional status Patient does n ot drink 03/19/2025 9:38 AM EDT Mychart, Generic Patient does not drink [facility] 03-19-2025 How often do you hav e 6 or more drinks on 1 occasion? Never 03/19/2025 9:38 AM EDT Mychart, Generic Never [facility] 03-19-2025 Patient Health Quest ionnaire 2 item (PHQ-2) [Reported] [facility] 03-19-2025 Little interest or p mukesh in doing things Not at all 03/19/2025 9:38 AM EDT Mychart, Generic Not at all [facility] 03-19-2025 Feeling down, depres sed, or hopeless Not at all 03/19/2025 9:38 AM EDT Mychart, Generic Not at all [facility] Clinical Notes 02-28-2024 to 03-19-2025 Anh Summers MA - 03/19/2025 2:00 PM EDTBenita Wilson MD - 03/19/2025 2:00 PM EDT Note Date & Type Note Facility 03-19-2025 History of Presen t illness Narrative 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 Establish care with General PCP for routine health maintenance. -wants skin tags removed, will scheduled procedure Follow up in about 1 year (around 03/19/2026) for Annual. Orders Placed This Encounter Procedures Bilateral screening mammogram with tomosynthesis Standing Status: Future Expected Date: 03/19/2025 Expiration Date: 05/19/2026 documented in this encounter [facility] 02-19-2025 Progress note [facility] 02-19-2025 Progress note Note Date/Time February 19, 2025 5:42pm [facility] [address] [place] [id number] OFFICE VISIT Date of Service: 02/19/25 MR#: [id number] Acct: [id number] Name: ROXANNASARAHANNELISE BRAYELLE Rep #: [id number] : 1985 Provider: ROSY Das Age/Sex: 39/F Location: [facility] Status: Signed Intake Vital Signs 07/31/24 17:27 Height 5 ft 2 in Intake Visit Reasons: BACK PAIN, Back pain Chief Complaint: neck, upper and low back pain Retail 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 Specialist Required: No Accompanied by: Self Is patient [...] CPT Codes Procedures - Manipulation: 3-4 regions (08561) Procedures - Traction, Mechanical: Yes (32319) 02/23/25 0854 <Electronically signed by Kat Thapa> Date _ Kat Thiago Ibarra Signature: Date (if applicable) CC: ~ [facility] Work Phone: 1(647) 890-865207-03-2025 Evaluation note* Diagnosis Onset Date Resolution Status [...] thoracic region acute S eptember 2024 5:22pm [facility] Work Phone: 1(988) 226-229305-05-2025 Radiology Diagnostic study note [facility] Imaging Services [address] [place], [place] [id number] Breast Limited Unilateral MR#: [id number] Acct: [id number] Name: ANNELISE BOURGEOIS Rep #: [id number] : 1985 F 38 From: Antonio Hampton DO PCP: Dr. Salomón Perkins MD Status: REG C JESSIE Study:Breast Limited Unilateral Date of Exam: 09/29/24 Exam# [id number] Ordering Dr: Emilia Wilson MD PROCEDURE: BREAST [...] BENIGN. RECOMMEND ANNUAL MAMMOGRAPHIC SCREENING. Reading Location: [id number] CC: Dr. Benita Wilson MD; Dr. Salomón Perkins MD ~ Patient Companion: Signed [facility]05-01-2025 Evaluation note* Diagnosis Onset Date Resolution Status [...] 5:30pm Back pain noneactive December 25 5:30pm [facility] Work Phone: 1(506) 365-463504-17-2025 History of Present illness Narrative* Benita Wilson [...] blood from nipple -planning to do at [employer] since she works there; will let us know if she has trouble getting scheduled in timely manner On this date, 09/11/24 I have spent 20 minutes reviewing previous notes, test results and face to face with the patient discussing the diagnosis and importance of compliance with the treatment plan as well as documenting on the day of the visit. documented in this [facility]03-13-2025 Evaluation note* Diagnosis Onset Date Resolution Status Admit Date Segmental and somatic dysfunction of cervical region acute M arch 2024 5:23pm Segmental and somatic dysfunction of lumbar region acute Mar 2024 5:23pm Segmental and somatic dysfunction of pelvic region acute Mar 2024 5:23pm Segmental and somatic dysfunction of thoracic region acute M arch 2024 5:23pm Spondylolist[facility] at L5-S1 [facility] August 07, 2024 5:23pm Segmental and somatic dysfunction of cervical region acute M 2024 5:18pm Segmental and somatic dysfunction of lumbar region acute September 25, 2024 5:18pm Segmental and somatic dysfunction of pelvic region acute September 25, 2024 5:18pm Segmental and somatic dysfunction of thoracic region acute [facility] 2024 5:18pm Spondylolist[facility] at L5-S1 [facility] September 25, 2024 5:18pm Back pain noneactive September 25, 2024 5:18pm [facility] Work Phone: [phone] 230-102503-13-2025 Evaluation note* Diagnosis Onset Date Resolution Status Admit Date Segmental and somatic dysfunction of cervical region acute M arch 2024 5:23pm Segmental and somatic dysfunction of lumbar region acute Mar 2024 5:23pm Segmental and somatic dysfunction of pelvic region acute Mar 2024 5:23pm Segmental and somatic dysfunction of thoracic region acute M arch 2024 5:23pm Spondylolisthesis at L5-S1 [facility] August 07, 2024 5:23pm Segmental and somatic [...] Back pain noneactive October 23, 2024 5:20pm [facility] Work Phone: 1(249) 648-615703-13-2025 Evaluation note* Diagnosis Onset Date Resolution Status Admit Date Segmental and somatic dysfunction of cervical region acute [facility] 2024 5:23pm Segmental and somatic dysfunction of lumbar region acute [facility] 2024 5:23pm Segmental and somatic dysfunction of pelvic region acute [facility] 2024 5:23pm Segmental and somatic dysfunction of thoracic region acute [facility] 2024 5:23pm Spondylolisthesis at L5-S1 level chr [...] Back pain noneactive November 27, 2024 5:21pm [facility] Work Phone: 1(136) 412-685410-03-2024 History of Present illness Narrative* Benita Wilson [...] per week. 2. Maintain yearly visits with [employer] PL[employer] CAULKER for well-woman exam. 3. Establish care with General PCP for routine health maintenance. Counseling Completed: 1. Reproductive Planning 2. Prevention of STD Follow up in about 1 year (around 02/27/2025) for Annual. No orders of the defined types were placed in this encounter. [facility] noteNo assessment information availableW[facility] Work Phone: Evaluation note* Diagnosis Onset [...] at L5-S1 level chronic Back pain noneactive [facility] Work Phone: Evaluation note* Diagnosis Onset Date [...] at L5-S1 level chronic Back pain noneactive [facility] Work Phone: Evaluation note* Diagnosis Onset Date [...] of thoracic region acute Back pain noneactive [facility] Work Phone: Evaluation note* Diagnosis Well woman exam with routine gynecological exam Routine gynecological examination Screening for cervical cancer Screening for malignant neoplasm of the cervix documented in this encounter [facility]* Diagnosis Bloody discharge from left nipple- Primary documented in this encounter [facility]* Diagnosis Women's annual routine gynecological examination- Primary Encounter for screening mammogram for malignant neoplasm of breast [facility] (narrative)No reason for referral information availableWOhio[facility] Work Phone: Chief Complaint and Reason [...] No April 16, 020 9:23am Power of Artificial Flowers Supervisor No April 16, 2020 9:23am Advance Directive Response Recorded Date/ Time Living Will No April 16 020 8:23am Power of Artificial Flowers Supervisor No April 16, 2020 8:23am Summary Purpose [...] Team Status: Active Member Role Status [facility] Attending Provider Active Start: June 04, [...] section and content) DATE CREATED AUTHOR 07/10/2023 [facility] DATE CREATED AUTHOR AUTHOR'S ORGANIZ ATION 03/09/2024 [facility] DATE CREATED AUTHOR AUTHOR'S ORGANIZ ATION 03/21/2025 [facility] DATE CREATED AUTHOR AUTHOR'S ORGANIZ ATION 04/09/2025 [facility] Reason for Visit (unrecogniz ed section and [...] BE BASED ON THE PRIMARY CLINICAL RECORDS. [employer] [facility]. provides no warranty or guarantee of the accuracy or completeness of information in this document.
--- NOTE | 2025-04-17 10:58 | PCM.HP.STD ---
HPI - General HPI Narrative HAYDER LIMA, is a 39 F who presents with right scalp cyst behind right ear. She only wants the one cyst excised (posterior auricular cyst). I marked it with her in preop and she agreed to proceed. Current Encounter (DATE OF SURGERY H&P UPDATE): I saw and examined the patient this morning in pre-operative holding. We discussed risks and benefits of today's surgery and they would like to proceed. NO CHANGE in health history since last seen and evaluated. Ready to proceed with surgery. FORMERLY [facility] Medical History Wears glasses Depression Anxiety Easy bruising Migraine headache Gastric reflux Shortness of breath on exertion Injury of back History of pain when walking Former smoker Home Medications ?Medication ?Instructions ?Recorded ?Last Taken ?Type pantoprazole 40 mg tablet,delayed 40 mg PO DAILY 01/26/21 04/17/25 History release fluoxetine 60 mg tablet 60 mg PO QDAY 02/19/25 04/17/25 History semaglutide 1 mg/dose (4 mg/3 mL) 1 mg subcut QWEEK 04/10/25 03/20/25 History subcutaneous pen injector (Ozempic) Allergy/AdvReac Type Severity Reaction Status Date / Time No Known Allergies Allergy Verified 04/17/25 10:09 Family History Other Heart disease Hypertension Surgical History History of hysteroscopy History of wisdom tooth extraction History of tonsillectomy and adenoidectomy Social History Smoking Status: Former smoker quit date: 02/26/24 how long ago did patient quit smokin year ago quit alcohol intake: current alcohol intake frequency: holidays/special occasions only substance use type: does not use what type of physical activity do you participate in: none Vital Signs Vital Signs Vital Signs: 04/17/25 10:11 04/17/25 10:11 04/17/25 10:11 Temperature 98.2 F Temperature Source Temporal Pulse Rate 70 Respiratory Rate 18 Respiratory Pattern Normal Blood Pressure 136/80 H Blood Pressure Mean 98 Blood Pressure Source Monitor Blood Pressure Position Semi-Fowlers Blood Pressure Location Left Arm Baseline BP 136/80 Pulse Ox 98 Oxygen Delivery Method Room Air Weight Weight: 230 lb 9.656 oz Body Mass Index (BMI) 42.1 Physical Exam Narrative Right scalp cyst Assessment & Plan Assessment/Plan (1) Mass of scalp: PLAN: Patient only wants the one cyst excised today as she has a convention coming up . She will defer the others until later. reiterated risks of cutaneous nerve injury/pain I talked to the patient extensively about the risks of surgery, including bleeding, infection, damage to surrounding structures, poor scaring, surgical site dehiscence and wound formation, need for wound care, need for repeat operations, failure to obtain the desired result, DVT/PE, and the risks of anesthesia including , including stroke (from low blood pressure/ischemia or clot). The benefits and alternatives of this surgery were also discussed. All of their questions were answered, and they agreed to proceed with surgery. Plan to proceed with right scalp cyst excision
--- NOTE | 2025-04-17 11:00 | PRE.ANES_ITS ---
ASA Classification* ASA Classification ASA Classification: 3 Assessment & Plan Anesthesia* Anesthesia Assessment Anesthesia Assessment: Discussed sedation and/or anesthesia options, risks, benefits, and alternatives with patient/parents/legal guardian/POA. Questions invited. The patient/parents/legal guardian/POA seems to understand and agrees to proceed with anesthesia plan. Reviewed the physical assessment, medical history, allergy history and patient home medications list prior to surgery/procedure/anesthetic and documented any changes. Performed airway and anesthesia risk assessments. Anesthesia Type Anesthesia Type: MAC Anesthesia Focused Assessment* Temperature: 98.2 F Pulse Rate: 70 Blood Pressure: 136/80 Respiratory Rate: 18 Pulse Ox: 98 Airway Assessment Mouth opens: >3 cm Mallampati Score: II Labs Anesthesia Preop lab: CBC WBC, (4.4-11.0) 9.3 K/mm3 08/13/20, 12:28 RBC, (4.2-5.4) 5.15 M/mm3 08/13/20, 12: Hgb, (12.0-15.0) 14.4 g/dL 08/13/20, 12:28 Hct, (37-47) 44.9 % 08/13/20, 12:28 Plt Count, (150-450) 261 K/mm3 08/13/20, 12:28 CHEMISTRY Potassium, (3.5-5.1) 4.2 mmol/L 08/13/20, 12:28 Sodium, (136-145) 136 mmol/L 08/13/20, 12:28 BUN, (7-18) 13 mg/dL 08/13/20, 12:28 Creatinine, (0.55-1.02) 0.85 mg/dL 08/13/20, 12:28 Glucose, (74-106) 99 mg/dL 08/13/20, 12:28 TSH, (0.358-3.74) 2.01 uIU/mL 08/13/20, 12:28 COAG Urine Test Negative Negative 11/20/19, 06:15 Pre-Assessment Diagnosis/Proposed Procedure Planned Operative Procedure(s): EXCISION THREE SCALP CYST Anesthesia History 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 When Was Last Pacemaker Check QUESTION #4 FULL TEXT: You/Your Family Experience fever (hyperthermia) with Anesthesia Last Oral Intake Last Oral intake: Last Oral Intake NPO since 00:00 04/17/25 10:11 Meds taken in AM with sips of Yes 04/17/25 10:11 water? Meds patient instructed to take am of surgery PONV PONV - polysilicon preparation worker: PONV - polysilicon preparation worker Female Yes 04/10/25 09:21 HX of Motion Sickness Yes 04/10/25 09:21 HX of N/V After Surgery No 04/10/25 09:21 Non-Smoker Yes 04/10/25 09:21 Duration of Surgery greater No 04/10/25 09:21 than 60 minutes Number of Risk Factors 3 04/10/25 09:21 PONV Score Moderate Risk 04/10/25 09:21 Height & Weight Height & Weight: Anesthesia: Height & Weight Height 5 ft 2 in 04/17/25 10:11 Weight: 104.6 kg 04/17/25 10:11 Body Mass Index (BMI) 42.1 04/17/25 10:11 Respiratory Assessment Respiratory Assessment - polysilicon preparation worker: Respiratory Tract Infection Hx - polysilicon preparation worker Hx Respiratory Tract Infection No 04/10/25 09:21 STOP Sleep Apnea STOP Sleep Apnea - polysilicon preparation worker: STOP Sleep Apnea - polysilicon preparation worker Hx Hypertension No 04/10/25 09:21 Hx Sleep Apnea No 04/10/25 09:21 CPAP BIPAP Do you snore loudly (louder Yes 04/10/25 09:21 than talking or can be heard Do you often feel tired/ Yes 04/10/25 09:21 fatigued/ sleepy during daytime? Has anyone observed you stop No 04/10/25 09:21 breathing during sleep? STOP Results Positive 04/10/25 09:21 QUESTION #5 FULL TEXT : Do you snore loudly (louder than talking or can be heard through closed doors)? 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 Specify any problems Hx of Preganancy in last 3 No 04/10/25 09:21 Months Nurse Filling Out Transfusion DSCHRIBER 04/10/25 09:21 & Questions: Date: 04/10/25 04/10/25 09:21 Time: :04/10/25 09:21 Patient unable to answer at this time (ie. confused, unrespo /Reproduction History /Reproductive History - polysilicon preparation worker: /Reproductive Hx- polysilicon preparation worker Hx Now No 04/10/25 09:21 Gestational Age (in weeks): EDC: Hx Hx Para Hx Section SAB No 04/10/25 09:21 Does the father of the baby or his family experience fever w Father of the baby Malignant Hypertension history comment Active Medications Active Medications: Current Medications Generic Name Dose Route Start Last Admin Trade Name Freq PRN Reason Stop Dose Admin Lactated Ringer's 1,000 mls @ 15 mls/hr 04/17/25 10:15 04/17/25 10:26 IV 15 mls/hr .Q48H ANABEL Administration PFSH Medical History Wears glasses Depression Anxiety Easy bruising Migraine headache Gastric reflux Shortness of breath on exertion Injury of back History of pain when walking Former smoker Home Medications ?Medication ?Instructions ?Recorded ?Last Taken ?Type pantoprazole 40 mg tablet,delayed 40 mg PO DAILY 01/2604/17/25 History release fluoxetine 60 mg tablet 60 mg PO QDAY 02/19/2504/17 History semaglutide 1 mg/dose (4 mg/3 mL) 1 mg subcut QWEEK 03/20/25 History subcutaneous pen injector (Ozempic) Allergy/AdvReac Type Severity Reaction Status Date / Time No Known Allergies Allergy Verified 04/17/25 10:09 Family History Other Heart disease Hypertension Surgical History History of hysteroscopy History of wisdom tooth extraction History of tonsillectomy and adenoidectomy Social History Smoking Status: Former smoker quit date: 02/26/24 how long ago did patient quit smokin year ago quit alcohol intake: current alcohol intake frequency: holidays/special occasions only substance use type: does not use what type of physical activity do you participate in: none Review of Systems (Anesthesia) ROS Narrative System reviewed and no additional complaints, except as documented.
[2025-04-17] MEDS: Lactated Ringers 500 ML IV (11:20)
[2025-04-17] MEDS: Cefazolin 1 GM/5 ML Vial 2 GM IV (11:20)
--- NOTE | 2025-04-17 11:21 | OP.PCM_ITS ---
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 Melter Loader: Romana Majano Tasks completed by visitor information assistant: Retracting Type of Anesthesia: Local MAC (7 cc of a 50-50 mixture of quarter percent Marcaine with 1-200,000 epinephrine and 1% lidocaine with 1-200,000 epinephrine) RN Documented Start/Stop Times: Operation Date: 04/17/25 11:30 Case Time Into Pre-Op 04/17/25 10:04 Out of Pre-Op 04/17/25 11:15 Anesthesia Start 04/17/25 11:18 Into Room 04/17/25 11:18 Procedure Start 04/17/25 11:37 Procedure Start Time: 13:37 Procedure Stop Time: 11:45 Select all DRAINS/GRAFTS/IMPLANTS that apply: None Estimated Blood Loss: 10 cc Specimen collected: Yes Description of specimen(s) removed: Right scalp cyst Description of surgery: Indications: Patient is a delightful 39-year-old female with a right scalp cyst. She would like this removed today. She understands the risks, benefits, and alternatives to the procedure and would like to proceed. Procedure details: Patient was correct identified in preoperative holding and the cyst was marked. She was taken back to the operating room where she was administered sedation and local anesthesia. She was prepped and draped in sterile fashion all proper timeouts were performed. 15 blade scalpel was used to make an incision directly over the scalp cyst and dissection was carefully taken around the cyst with tenotomy scissors. It measured 1 x 2 cm and was sent to pathology. Hemostasis was obtained with Bovie electrocautery and the wound was irrigated with copious amounts of Irrisept and normal saline. The wound was closed with maria del carmen. Patient tolerated the procedure well. She was awakened and taken to the PACU in stable condition. Surgical Findings: Consistent with Pilar cyst Complications Complications: No
[2025-04-17] MEDS: Lidocaine 1% (5 ml sdv) 5 ML Vial IV (11:27)
--- NOTE | 2025-04-17 11:30 | CYST_PTH ---
PATIENT: HAYDER LIMA LOC: [facility] U#:[id number] AGE/SX: 39/F ROOM: RE04/17/[address]: Dr. Александр Montgomery MD : 1985 BED: DIS: 04/17/2025 SPEC #: [id number] RECD: 04/17/25 12:50 STATUS: HARDIK REQ #: [id number] HAILEE: 04/17/25 11:[address]: Александр Montgomery DEPT: SURGICAL PATHOLOGY RECD BY: Pablo Burch ENTERED: 04/17/25 14:49 SP TYPE: Cyst OTHR DR: Dr. Salomón Perkins MD Tissues: A - CYST Procedures: Surgery Specimen Level III HEADER OPERATION: Excision scalp cyst PRE-OP DIAGNOSIS: Mass of scalp TISSUE SUBMITTED: A- Scalp cyst MICROSCOPIC DIAGNOSIS A. Soft tissue, scalp, excision: * Pilar cyst MICROSCOPIC DESCRIPTION Slides are reviewed. GROSS DESCRIPTION A. Received in formalin labeled with the patient's name and date of . Designated as scalp cyst is a 1.5 x 1.5 x 0.6 cm juares-white to monahan intact cyst containing juares to light brown, grumous material. Electric Meter Inspector sections are submitted in [address] 04/17/2025 CPT:57124
[2025-04-17] MEDS: fentaNYL 100 MCG/2 ML Ampul IV (11:38)
[2025-04-17] MEDS: Lidocaine 1% /Epi 1:100 (20ml) 20 ML Vial (11:44)
[2025-04-17] MEDS: Bupiv/Epi 0.25% 30 ML Vial (11:44)
--- NOTE | 2025-04-17 11:59 | PCM.POST.ANE ---
Anesthesia: Postop Eval I Current Vital Signs Temperature: 97.3 F Pulse Rate: 83 Blood Pressure: 120/74 Respiratory Rate: 14 Pulse Ox: 96 Oxygen Delivery Method: Room Air Assessment Airway patent: Yes Spontaneous unlabored respirations: Yes Mental status: Awake and Calm nausea: No Vomiting: No Anesthesia Complication: No Fluid Hydration Crystalloid volume administer (ml): 500 Total IV fluid infused: 500 Progress Note Anesthesia document: Postop Eval 1 completed: Yes
--- NOTE | 2025-04-17 12:20 | POSTOPAN2_ITS ---
Anesthesia Postop Eval I Sum Postop Eval Completion status Anesthesia document: Postop Eval 1 completed: Yes Anesthesia Postop Eval I Summary Anesthesia Postop Eval I Summary: Anesthesia Postop Eval I: Assessment Summary Airway patent Yes 04/17/25 12:00 MAINTENANCE FOREMAN.SHOF Spontaneous unlabored Yes 04/17/25 12:00 MAINTENANCE FOREMAN.SHOF respirations Mental status Awake,Calm 04/17/25 12:00 MAINTENANCE FOREMAN.SHOF nausea No 04/17/25 12:00 MAINTENANCE FOREMAN.SHOF Vomiting No 04/17/25 12:00 MAINTENANCE FOREMAN.SHOF Anesthesia Postop Eval I: Fluid Summary Crystalloid volume administer 500 04/17/25 12:00 MAINTENANCE FOREMAN.SHOF (ml) Colloids volume administered ( ml) Blood Product volume administered (ml) Total IV fluid infused 500 04/17/25 12:00 MAINTENANCE FOREMAN.SHOF Anesthesia Postop Eval I: Summary Notes Anesthesia Complication No 04/17/25 12:00 MAINTENANCE FOREMAN.SHOF Anesthesia Complication Comment: Post-operative progress note Anesthesia: Postop Eval II Evaluation Mental status: Awake Pain Level: 0 nausea: No Vomiting: No
--- NOTE | 2025-04-17 12:20 | PCM.POSTANE2 ---
Anesthesia Postop Eval I Sum Postop Eval Completion status Anesthesia document: Postop Eval 1 completed: Yes Anesthesia Postop Eval I Summary Anesthesia Postop Eval I Summary: Anesthesia Postop Eval I: Assessment Summary Airway patent Yes 04/17/25 12:00 CHEMICAL TESTER.SHOF Spontaneous unlabored Yes 04/17/25 12:00 CHEMICAL TESTER.SHOF respirations Mental status Awake,Calm 04/17/25 12:00 CHEMICAL TESTER.SHOF nausea No 04/17/25 12:00 CHEMICAL TESTER.SHOF Vomiting No 04/17/25 12:00 CHEMICAL TESTER.SHOF Anesthesia Postop Eval I: Fluid Summary Crystalloid volume administer 500 04/17/25 12:00 CHEMICAL TESTER.SHOF (ml) Colloids volume administered ( ml) Blood Product volume administered (ml) Total IV fluid infused 500 04/17/25 12:00 CHEMICAL TESTER.SHOF Anesthesia Postop Eval I: Summary Notes Anesthesia Complication No 04/17/25 12:00 CHEMICAL TESTER.SHOF Anesthesia Complication Comment: Post-operative progress note Anesthesia: Postop Eval II Evaluation Mental status: Awake Pain Level: 0 nausea: No Vomiting: No
== END 2025-04-17 13:01 | disposition home or self-care (01) ==
LOC: SDC 09:40 → AC 09:42
PROVIDERS: PCP Family Medicine Geriatric Medicine; Referring Provider Surgery Plastic and Reconstructive Surgery; Visit Provider Surgery Plastic and Reconstructive Surgery
PROC: (CPT 11422; principal; 2025-04-17 11:15)
DX: L72.11 Pilar cyst (principal); Z87.891 Personal history of nicotine dependence; K21.9 Gastro-esophageal reflux disease without esophagitis; Z79.899 Other long term (current) drug therapy; Z79.85 Long-term (current) use of injectable non-insulin antidiabetic drugs
CPT/HCPCS: 11422; 00300; 88304; J2405